=== PATIENT | male | born 1945 | race African-American/Black ===

== ENCOUNTER 2017-02-05 05:04 | Inpatient (IN) | payer MEDICARE, OTHER ==
[2017-01-29 11:01] LABS: BASOPHILS % (AUTO) 1.3 % (0.0-2.0); EOSINOPHILS % (AUTO) 4.1 % (0.0-3.0); LYMPHOCYTES % (AUTO) 26.8 % (20.0-45.0); MEAN CORPUSCULAR HEMOGLOBIN 34.5 PG (27.0-31.0); MEAN CORPUSCULAR HGB CONC 32.3 G/DL (32.0-36.0); MEAN CORPUSCULAR VOLUME 107 FL (80-99); MONOCYTES % (AUTO) 8.5 % (1.0-10.0); NEUTROPHILS % (AUTO) 59.3 % (45.0-75.0); PLATELET COUNT 230 K/UL (150-450); RED BLOOD COUNT 3.24 M/UL (4.70-6.10); RED CELL DISTRIBUTION WIDTH 14.2 % (11.6-14.8); WHITE BLOOD COUNT 4.7 K/UL (4.8-10.8)
[2017-01-29 11:14] LABS: PROTHROMBIN TIME 10.2 SEC (9.30-11.50)
[2017-01-29 11:15] LABS: ALBUMIN/GLOBULIN RATIO 1.1 (1.0-2.7); CALCIUM 10.6 mg/dL (8.6-10.2); CREATININE 4.7 mg/dL (0.7-1.2); POTASSIUM 4.3 mEQ/L (3.4-4.9); TOTAL PROTEIN 8.2 g/dL (6.6-8.7)
--- NOTE | 2017-01-30 08:48 | Diagnostic Imaging Report ---
Indication: COUGH Technique: One view of the chest Comparison: 07/04/2012 Findings: Previously demonstrated dialysis catheter is no longer evident. Lungs and pleural spaces are clear. Heart size is normal. Aorta is tortuous and calcified. Impression: No acute process
--- NOTE | 2017-02-04 10:44 | Pre-Procedure Note/Attestation ---
Pre-Procedure Note/Attestation Complete Prior to Procedure Planned Procedure: left Procedure Narrative: Left total hip arthroplasty Indications for Procedure Pre-Operative Diagnosis: Left hip arthritis Attestation I attest that I discussed the nature of the procedure; its benefits; risks and complications; and alternatives (and the risks and benefits of such alternatives ), prior to the procedure, with the patient (or the patient's legal outside dealer sales representative). I attest that, if there was a reasonable possibility of needing a blood transfusion, the patient (or the patient's legal outside dealer sales representative) was given the [facility] standardized written summary, pursuant to the Carson Kristy Blood Safety Act ([place] Health and Safety Code # 1645, as amended). I attest that I re-evaluated the patient just prior to the surgery and that there has been no change in the patient's H&P, except as documented below: NONE MARV GODINEZ Feb 04, 2017 10:44
[2017-02-05] VITALS (16 sets, daily range): BP systolic 116–191; BP diastolic 60–99
[~2017-02-05] VITALS: Ht 175.3 cm; Wt 57.2 kg
[~2017-02-05 05:04] MED LIST: ACYCLOVIR200 MG/5 M PO; AMLODIPINE BESY10 MG PO; AVAPRO300 MG PO; BACTRIM-DS1 EA PO; BENADRYL25 MG PO; CLONIDINE 0.2M0.2 MG PO; COZAAR100 MG PO; CREON 10 EC CA249 MG PO; DILANTIN100 MG PO; DIOVAN320 MG PO; EPIVIR10 MG/1 ML PO; EPIVIR300 MG PO; FOLIC ACID1 MG PO; ISOSORBIDE DINI40 MG PO; LOPRESSOR HCT1 EACH PO; MYCELEX15 GM PO; NEPHRO-VITE RX1 EACH PO; NORCO 7.5-3251 EACH PO; NORVASC10 MG PO; NORVIR100 M1 PO; NORVIR100 MG PO; PRILOSEC40 MG PO; RANITIDINE HCL150 MG PO; RENAGEL800 MG PO; RENVELA800 MG PO; REYATAZ150 MG PO; SENSIPAR30 MG PO; SENSIPAR60 MG PO; SUSTIVA200 MG PO; VASOTEC20 MG PO; ZERIT PO; ZIAGEN300 MG PO
[2017-02-05] MEDS ORDERED: ceFAZolin 1gm in D5W 55ml IVP ONE (06:00)
[2017-02-05] MEDS ORDERED: oxyCONTIN 20mg tab ORAL ONE (06:00)
[2017-02-05] MEDS ORDERED: celeBREX 200mg Cap **SURGERY PATIENTS ONLY ORAL ONE (06:00)
[2017-02-05] MEDS ORDERED: Bacitracin 50000 Units Vial ONE (06:47)
[2017-02-05] MEDS ORDERED: Duramorph PF 5mg/10ml amp ONE (06:47)
[2017-02-05] MEDS ORDERED: NS Irrig 1000ml ONE (07:00)
[2017-02-05] MEDS ORDERED: Sterile Water Irrig 1000ml IRRIG ONE (07:00)
[2017-02-05] MEDS ORDERED: fentaNYL 100 mcg/2 mL IV ONE (07:00)
[2017-02-05] MEDS ORDERED: Tranexamic Acid 1,000 MG in NS 55 ML IVPB ONE (08:00)
--- NOTE | 2017-02-05 08:24 | Anethesia Preoperative Eval ---
Anesthesia Pre-op PMH/ROS General Date of Evaluation: Feb 05, 2017 Time of Evaluation: 06:50 Anesthesiologist: Kayley ASA Score: ASA 3 Mallampati Score Class I : Soft palate, uvula, fauces, pillars visible Class II: Soft palate, uvula, fauces visible Class III: Soft palate, base of uvula visible Class IV: Only hard plate visible Mallampati Classification: Class II Surgeon: Dudley Diagnosis: R hip DJD Surgical Procedure: R hip arthroplasty Anesthesia History: none Family History: no anesthesia problems Allergies: Coded Allergies: No Known Allergies (Unverified , 03/05/12) Medications: see eMAR Past Medical History Cardiovascular: Reports: HTN, Denies: CAD, MA, arrhythmia, other, valve dz Pulmonary: Denies: COPD, CRISSY, asthma, other Gastrointestinal/Genitourinary: Reports: ESRD - on HD, GERD, Denies: CRI, other Neurologic/Psychiatric: Reports: depression/anxiety, other - chronic pain, Denies: CVA, TIA, dementia Endocrine: Denies: DM, hypothyroidism, other, steroids HEENT: Denies: [place] (L), [place] (R), cataract (L), cataract (R), glaucoma, other Hematology/Immune: Reports: anemia, other - HIV-AIDS, Denies: DVT, bleeding disorder Musculoskeletal/Integumentary: Reports: DJD PMH Narrative: as above PSxH Narrative: Multiple Sx for placement and maintenance of dialysis acces Anesthesia Pre-op Phys. Exam Physician Exam Last Vital Signs Date Time Temp Pulse Resp B/P Pulse Ox O2 Delivery O2 Flow Rate FiO2 02/05/17 06:02 98.0 61 18 168/74 100 Room Air Constitutional: NAD Neurologic: CN 2-12 intact Cardiovascular: RRR, no M/R/G Respiratory: CTA Gastrointestinal: S/NT/ND Airway Exam Mallampati Score: Class II MO: limited Neck: stiff ROM: limited Teeth: missing, broken Dentures: no lower, no upper Anesthesia Pre-op A/P Labs Chemistry Test 02/05/17 05:30 Potassium Level 4.3 mEQ/L (3.4-4.9) Studies Pre-op Studies: EKG - SR Risk Assessment & Plan Assessment: ASA 3 Plan: SAB vs GA Status Change Before Surgery: No Pre-Antibiotics Drug: Ancef 1gr Given Within 1 Hr of Incision: Yes Time Given: 07:55 JOSE GUADALUPE PEÑA M.D. Feb 05, 2017 08:24
[2017-02-05] MEDS ORDERED: Meperidine 25mg/0.5ml Inj (FOR RIGORS ONLY) IV PRN (08:30)
[2017-02-05] MEDS ORDERED: Hydromorphone 0.5mg/0.5ml inj IVP PRN (08:30)
[2017-02-05] MEDS ORDERED: DiphenhydrAMINE 50mg/ml Inj IVP PRN (08:30)
[2017-02-05] MEDS ORDERED: Enoxaparin 30mg Inj SUBQ SCH (09:00)
--- NOTE | 2017-02-05 09:22 | Brief Operative Note ---
Immediate Post Operative Note Operative Note Chief Complaint: rt hip pain Pre-op Diagnosis: rt hip arthritis Procedure: rt [place] Post-op Diagnosis: same as pre-op Findings: consistent w/pre-op dx studies Surgeon: md rose [employer] Dispatcher: radha sanchez Anesthesiologist: md fran Anesthesia: general Specimen: yes Complications: none Condition: stable Estimated Blood Loss: minimal Drains: none Implant(s) used?: Yes - mina and nephCHRIS Jackson Feb 05, 2017 09:22
--- NOTE | 2017-02-05 10:48 | Immediate Post-Op Evaluation ---
Immediate Post-Op Evalulation Immediate Post-Op Evalulation Procedure: R total hip arthroplasty Date of Evaluation: Feb 05, 2017 Time of Evaluation: 09:35 IV Fluids: 1000 Blood Products: none Estimated Blood Loss: 150 Urinary Output: none Blood Pressure Systolic: 116 Blood Pressure Diastolic: 64 Pulse Rate: 61 Respiratory Rate: 20 O2 Sat by Pulse Oximetry: 99 Temperature (Fahrenheit): 97.5 Pain Score (1-10): 1 Nausea: No Vomiting: No Complications none Patient Status: reacts, patent, none Hydration Status: adequate JOSE GUADALUPE PEÑA M.D. Feb 05, 2017 10:48
--- NOTE | 2017-02-05 11:55 | Diagnostic Imaging Report ---
Indication: Intraoperative Technique: One view of the pelvis during surgery Comparison: None Findings: Intraoperative image documents a right hip arthroplasty cup and right femoral broach. There are vascular calcifications Impression: Intraoperative imaging, as described
[2017-02-05] MEDS ORDERED: Norco 5mg/325mg tab ORAL PRN (12:00)
[2017-02-05] MEDS ORDERED: Norco 7.5mg/325mg tab ORAL PRN (12:00)
[2017-02-05] MEDS ORDERED: HYDROmorphone 1mg/ml Carpuject SUBQ PRN (12:00)
--- NOTE | 2017-02-05 12:18 | Diagnostic Imaging Report ---
Indication: PAIN, postoperative Technique: One view of the lower pelvis Comparison: 2 hours earlier Findings: Right hip arthroplasty prosthesis is in place, visualized. Retained air from the surgical exposure is seen in the soft tissues. Impression: Postoperative right hip. No unusual features
--- NOTE | 2017-02-05 12:24 | Consultation ---
Consult Note Assessment/Plan staus: Had Right hip elective surgery- ESRD on HD HIV status HTN Plan: HD in am- Renal diet when awake- Cont HIV meds per ID- BP meds and adjustments Per orders- VANNESSA CRUZ Feb 05, 2017 12:24
[2017-02-05] MEDS: D5 1/2NS 1,000 ML IV SCH (12:30)
[2017-02-05] MEDS ORDERED: cloNIDine 0.2mg Tab ORAL SCH (13:00)
[2017-02-05] MEDS: Docusate 100mg cap ORAL SCH ×2 (13:00→18:53)
[2017-02-05] MEDS ORDERED: D5 1/2NS w/KCl 20mEq 1,000 ML IV SCH (13:00)
[2017-02-05] MEDS: oxyCONTIN 20mg tab ORAL SCH ×2 (13:00→21:23)
[2017-02-05 13:52] LABS: BASOPHILS % (AUTO) 0.7 % (0.0-2.0); EOSINOPHILS % (AUTO) 2.8 % (0.0-3.0); LYMPHOCYTES % (AUTO) 20.2 % (20.0-45.0); MEAN CORPUSCULAR HEMOGLOBIN 33.9 PG (27.0-31.0); MEAN CORPUSCULAR HGB CONC 31.3 G/DL (32.0-36.0); MEAN CORPUSCULAR VOLUME 108 FL (80-99); MEAN PLATELET VOLUME 5.7 FL (6.5-10.1); MONOCYTES % (AUTO) 6.5 % (1.0-10.0); NEUTROPHILS % (AUTO) 69.9 % (45.0-75.0); PLATELET COUNT 176 K/UL (150-450); RED BLOOD COUNT 2.46 M/UL (4.70-6.10); RED CELL DISTRIBUTION WIDTH 14.5 % (11.6-14.8); WHITE BLOOD COUNT 6.4 K/UL (4.8-10.8)
[2017-02-05 14:06] LABS: ALBUMIN/GLOBULIN RATIO 1.2 (1.0-2.7); CALCIUM 9.7 mg/dL (8.6-10.2); CREATININE 6.7 mg/dL (0.7-1.2); GLOMERULAR FILTRATION RATE 9.9 mL/min (>60); PHOSPHORUS 5.5 mg/dL (2.5-4.8); POTASSIUM 4.8 mEQ/L (3.4-4.9); TOTAL PROTEIN 5.9 g/dL (6.6-8.7)
[2017-02-05] MEDS ORDERED: ceFAZolin sod 2 GM in D5W 110 ML IV SCH (16:00)
[2017-02-05] MEDS: ceFAZolin sod 1 GM in D5W 55 ML IV SCH ×2 (16:29→23:41)
--- NOTE | 2017-02-05 19:15 | Operative Note - Dictated ---
DATE OF OPERATION: 02/05/2017 PREOPERATIVE DIAGNOSIS: Right hip end-stage arthritis. POSTOPERATIVE DIAGNOSIS: Right hip end-stage arthritis. PROCEDURE: Right total hip arthroplasty using Chaney and Nephew system, size 54 mm, R3 cup with two dome screws, size 9 mm standard offset Anthology stem, standard neck with 0 length 36 mm cobalt-chrome head, all press-fit SURGEON: Gerardo Jesus M.D. CONSERVATION PLANNER: Michelle Woodward PA-C. ANESTHESIOLOGIST: Tulio Zaldivar M.D. ANESTHESIA: General LMA anesthesia combined with spinal block for postoperative pain management. ESTIMATED BLOOD LOSS: Less than 150 mL. COMPLICATIONS: None. BRIEF HISTORY: The patient is a pleasant 71-year-old gentleman who has had end-stage renal disease and has had severe arthritis of the right hip. He is unable to ambulate because of his hip. After full discussion of the risks and benefits of the surgery complications associated with it including infection, bleeding, neurovascular complication, possibility of fractures, possibility of leg length discrepancy, DVT, PE, need for revision surgery, infection requiring resection arthroplasty, and other complications that may arise, he opted for surgical treatment as described above. OPERATIVE PROCEDURE: The patient was brought to the operating table and was placed supine. General LMA anesthesia was induced and spinal anesthesia was performed for postoperative pain management. Tranexamic acid was given and preoperative antibiotics was given. The patient was placed in left lateral decubitus position. All pressure points were well padded. The right hip was placed up. The patient was stabilized and all pressure points were well padded. The right hip was prepped and draped in the usual sterile fashion. Standard posterior lateral approach to the hip was undertaken. The tensor fascia was opened and gluteal fascia was opened. Charnley retractors were placed in. The short external rotators were released and capsule was T'd. The femoral head was dislocated and a standard femoral neck cut was performed without any complication. The head was extremely arthritic. At this point, anterior acetabular retractors were placed in and retractors were placed around the acetabulum for visualization. The labrum was resected. Acetabulum had significant arthritic changes. At this point, wounds were thoroughly irrigated. Sequential reaming of the acetabulum was performed from [address] up to 54 mm. This provided excellent bleeding surface on the acetabulum for the cup. The reaming was performed approximately 40 degrees of anteversion and 40 degrees of inclination. Once this was completed, a 54 mm R3 hemispheric cup was then applied and was malleted in. There was excellent stability of the cup. Anteversion and inclination was checked to be perfect. Wounds were thoroughly irrigated using copious amount of fluid before and after the arthritic cup placement. At this point, two dome screws were placed for additional fixation. A 20-degree lipped poly was then locked in without any complications. At this point, care was given to the femoral side. The retractors around the acetabulum were removed. The hip was then internally rotated and retractors were placed around the femur. Subsequently, the entry into the femur was lateralized and the camera point was placed in. Sequential broaching was performed from [address] up to size 9 mm broach. This provided excellent axial and rotational stability of the hip. Once this was completed, a standard offset neck and 0 mm length head with 36 mm diameter was then applied and the whole entire construct was reduced. Range of motion was checked at 0 degrees, 30 degrees, 45 degrees, 90 degrees of flexion, and stability was checked in internal and external rotation. Leg lengths were checked with excellent stability, with internal rotation all the way up to 70 degrees with hip in adduction. External rotation was checked and there was no instability. Leg lengths appeared to be equal intraoperatively. The soft tissue tension was excellent. At this point, intraoperative x-rays were obtained and the broach appeared to be perfect size. The leg lengths appeared to be equal and acetabular component was in excellent position. At this point, all wounds were thoroughly irrigated using copious amount of fluid. The broach was removed and canal was irrigated using Simpulse irrigation. At this point, size 9 anthology stem was then placed in with approximately 15 degrees of anteversion and was seated as well. The standard neck was used. At this point, 0 mm neck length, and 36 mm cobalt-chrome head was then applied on the Walters taper and was locked without complication. The locking mechanism was checked and rechecked to be perfect. At this point, the entire mechanism was then reduced after the acetabulum was thoroughly irrigated. Once this was completed, leg length stability and soft tissue tension were checked and appeared to be perfect as described previously. At this point, the tensor fascia was closed using #1 interrupted Vicryl suture. Short external rotators were fixed through drill holes to the femur prior to closing the tensor fascia. The subcutaneous tissue was closed in 2-0 Vicryl suture and the skin was closed in 3-0 Monocryl suture. A sterile dressing was applied and abduction pillow was applied. The patient was taken to the recovery room in stable condition. Gerardo Jesus M.D. DR: CONRAD JOB#: [id number] CC: NAGI
[2017-02-05] MEDS: Sensipar 30mg Tab ORAL SCH (21:20)
[2017-02-05] MEDS: Minoxidil 2.5mg tab ORAL PRN (21:20)
[2017-02-06] VITALS (10 sets, daily range): BP systolic 158–197; BP diastolic 75–102
[2017-02-06] MEDS: Minoxidil 2.5mg tab ORAL PRN ×2 (05:05→22:20)
[2017-02-06 07:05] LABS: BASOPHILS % (AUTO) 0.6 % (0.0-2.0); EOSINOPHILS % (AUTO) 2.1 % (0.0-3.0); LYMPHOCYTES % (AUTO) 15.6 % (20.0-45.0); MEAN CORPUSCULAR HEMOGLOBIN 35.2 PG (27.0-31.0); MEAN CORPUSCULAR HGB CONC 32.7 G/DL (32.0-36.0); MEAN CORPUSCULAR VOLUME 108 FL (80-99); MEAN PLATELET VOLUME 6.1 FL (6.5-10.1); MONOCYTES % (AUTO) 6.7 % (1.0-10.0); PLATELET COUNT 204 K/UL (150-450); RED CELL DISTRIBUTION WIDTH 14.1 % (11.6-14.8); WHITE BLOOD COUNT 6.9 K/UL (4.8-10.8)
[2017-02-06 07:24] LABS: ALBUMIN/GLOBULIN RATIO 1.2 (1.0-2.7); CREATININE 8.3 mg/dL (0.7-1.2); CRP QUANT 2.7 mg/dL (< 0.5); GLOMERULAR FILTRATION RATE 7.8 mL/min (>60); MAGNESIUM 2.4 mg/dL (1.7-2.5); PHOSPHORUS 6.1 mg/dL (2.5-4.8); POTASSIUM 4.4 mEQ/L (3.4-4.9); TOTAL PROTEIN 7.8 g/dL (6.6-8.7); URIC ACID 4.3 mg/dL (3.0-7.5)
[2017-02-06] MEDS: D5 1/2NS 1,000 ML IV SCH (08:20)
[2017-02-06] MEDS: Docusate 100mg cap ORAL SCH ×4 (08:20→17:39)
[2017-02-06] MEDS: oxyCONTIN 20mg tab ORAL SCH ×2 (08:21→11:20)
[2017-02-06] MEDS: Enoxaparin 30mg Inj SUBQ SCH ×2 (08:22→10:52)
--- NOTE | 2017-02-06 08:22 | Orthopedic Progress Note ---
Orthopedic - Progress Note Subjective Symptoms: improved Objective Vital Signs Laboratory Tests Test 02/05/17 13:25 02/06/17 05:00 White Blood Count 6.4 K/UL (4.8-10.8) 6.9 K/UL (4.8-10.8) Red Blood Count 2.46 M/UL (4.70-6.10) L 3.00 M/UL (4.70-6.10) L Hemoglobin 8.3 G/DL (14.2-18.0) L 10.6 G/DL (14.2-18.0) L Hematocrit 26.6 % (42.0-52.0) L 32.4 % (42.0-52.0) L Mean Corpuscular Volume 108 FL (80-99) H 108 FL (80-99) H Mean Corpuscular Hemoglobin 33.9 PG (27.0-31.0) H 35.2 PG (27.0-31.0) H Mean Corpuscular Hemoglobin Concent 31.3 G/DL (32.0-36.0) L 32.7 G/DL (32.0-36.0) Red Cell Distribution Width 14.5 % (11.6-14.8) 14.1 % (11.6-14.8) Platelet Count 176 K/UL (150-450) 204 K/UL (150-450) Mean Platelet Volume 5.7 FL (6.5-10.1) L 6.1 FL (6.5-10.1) L Neutrophils (%) (Auto) 69.9 % (45.0-75.0) 75.0 % (45.0-75.0) Lymphocytes (%) (Auto) 20.2 % (20.0-45.0) 15.6 % (20.0-45.0) L Monocytes (%) (Auto) 6.5 % (1.0-10.0) 6.7 % (1.0-10.0) Eosinophils (%) (Auto) 2.8 % (0.0-3.0) 2.1 % (0.0-3.0) Basophils (%) (Auto) 0.7 % (0.0-2.0) 0.6 % (0.0-2.0) Sodium Level 142 mEQ/L (135-145) 138 mEQ/L (135-145) Potassium Level 4.8 mEQ/L (3.4-4.9) 4.4 mEQ/L (3.4-4.9) Chloride Level 102 mEQ/L (98-107) 94 mEQ/L (98-107) L Carbon Dioxide Level 28 mEQ/L (20-30) 29 mEQ/L (20-30) Anion Gap 12 (5-15) 15 (5-15) Blood Urea Nitrogen 22 mg/dL (7-23) 29 mg/dL (7-23) H Creatinine 6.7 mg/dL (0.7-1.2) H 8.3 mg/dL (0.7-1.2) H Estimat Glomerular Filtration Rate 9.9 mL/min (>60) 7.8 mL/min (>60) Glucose Level 75 mg/dL (74-106) 94 mg/dL (74-106) Calcium Level 9.7 mg/dL (8.6-10.2) 11.0 mg/dL (8.6-10.2) H Phosphorus Level 5.5 mg/dL (2.5-4.8) H 6.1 mg/dL (2.5-4.8) H Total Bilirubin 0.6 mg/dL (0.0-1.2) 0.4 mg/dL (0.0-1.2) Aspartate Amino Transf (AST/SGOT) 21 U/L (5-40) 39 U/L (5-40) Alanine Aminotransferase (ALT/SGPT) 10 U/L (3-41) 12 U/L (3-41) Alkaline Phosphatase 76 U/L (40-129) 108 U/L (40-129) Total Protein 5.9 g/dL (6.6-8.7) L 7.8 g/dL (6.6-8.7) # Albumin 3.3 g/dL (3.5-5.2) L 4.3 g/dL (3.5-5.2) Globulin 2.6 g/dL 3.5 g/dL Albumin/Globulin Ratio 1.2 (1.0-2.7) 1.2 (1.0-2.7) Uric Acid 4.3 mg/dL (3.0-7.5) Magnesium Level 2.4 mg/dL (1.7-2.5) Iron Level 21 ug/dL (59-158) L Total Iron Binding Capacity 181 ug/dL (250-400) L Percent Iron Saturation 12 % (15-50) L Unsaturated Iron Binding 160 ug/dL (112-346) Ferritin 1353 ng/mL (10-230) H C-Reactive Protein, Quantitative 2.7 mg/dL (< 0.5) H Pro-B-Type Natriuretic Peptide 64428 pg/mL (0-125) H Vitamin B12 Level 976 pg/mL (211-946) H Last 24 Hour Vital Signs Date Time Temp Pulse Resp B/P Pulse Ox O2 Delivery O2 Flow Rate FiO2 02/06/17 06:49 185/75 02/06/17 05:05 197/102 02/06/17 04:00 98.2 94 19 196/90 100 Nasal Cannula 2.0 02/06/17 00:21 98.1 91 18 197/102 100 Nasal Cannula 2.0 02/05/17 21:52 100 Nasal Cannula 2.0 02/05/17 21:51 Nasal Cannula 2.0 02/05/17 21:20 191/90 02/05/17 20:14 97.9 80 19 191/90 100 Nasal Cannula 2.0 02/05/17 18:53 133/63 02/05/17 16:16 97.6 50 19 133/63 100 Nasal Cannula 2.0 02/05/17 13:28 97.3 51 19 132/64 100 Nasal Cannula 2.0 02/05/17 12:38 97.3 51 19 132/64 100 Nasal Cannula 2.0 02/05/17 11:40 97.2 52 20 135/64 100 Nasal Cannula 2.0 02/05/17 10:48 61 20 99 02/05/17 10:40 97.2 52 10 130/66 98 Nasal Cannula 2.0 02/05/17 10:35 52 10 132/66 98 Nasal Cannula 2.0 02/05/17 10:30 55 10 127/70 97 Nasal Cannula 2.0 02/05/17 10:20 51 12 136/68 98 Room Air 02/05/17 10:10 55 14 136/68 100 Simple Mask 6.0 02/05/17 10:00 52 10 128/63 100 Simple Mask 6.0 02/05/17 09:50 53 11 126/65 100 Simple Mask 6.0 02/05/17 09:40 53 10 122/60 100 Simple Mask 6.0 02/05/17 09:35 55 10 128/74 100 Simple Mask 6.0 02/05/17 09:30 97.8 53 11 116/99 100 Simple Mask 6.0 I&O Intake and Output 02/05/17 02/06/17 19:00 07:00 Intake Total 1490 ml 690 ml Output Total 150 ml Balance 1340 ml 690 ml Intake Oral 340 ml 240 ml IV Total 1150 ml 450 ml Output Estimated Blood Loss 150 ml Wound: clean, dry, intact Drains: none Neuro Status: normal Vascular Status: normal Additional Comments xray reviewed Assessment Post-op Diagnosis POD 1 Procedure Performed rt [place] Plan Plan: PT, discharge plan - to SNF on saturday CHRIS MORGAN Feb 06, 2017 08:22
[2017-02-06] MEDS ORDERED: Efavirenz 200mg cap ORAL SCH (09:00)
[2017-02-06] MEDS: Lisinopril 10mg tab ORAL SCH ×3 (09:00→17:39)
[2017-02-06] MEDS ORDERED: Iron Sucrose 200 MG in NS 110 ML IV ONE (09:30)
--- NOTE | 2017-02-06 09:36 | Cardiology Report ---
APPROVED REPORT EKG Measurement Heart [id number] Sinus bradycardia with 1st degree AV block Voltage criteria for left ventricular hypertrophy Nonspecific ST and T wave abnormality Abnormal ECG
--- NOTE | 2017-02-06 09:50 | 48 Hour Post Anesthesia Eval ---
Post Anesthesia Evaluation Procedure: R total hip arthroplasty Date of Evaluation: Feb 06, 2017 Airway: patent Nausea: No Vomiting: No Pain Intensity: 3 Hydration Status: adequate Cardiopulmonary Status: at baseline Mental Status/LOC: patient returned to baseline Post-Anesthesia Complications: 0 Follow-up care needed: N/A - further care as per primary team IMELDA COLBY M.D. Feb 06, 2017 09:50
--- NOTE | 2017-02-06 13:00 | Consultation ---
DATE OF CONSULTATION: 02/06/2017 INFECTIOUS DISEASES CONSULTATION CONSULTING PHYSICIAN: Alyson Fuller M.D. REFERRING PHYSICIAN: Raymond Jimenez M.D. REASON FOR CONSULTATION: HIV management. HISTORY OF PRESENTING ILLNESS: This is a 71-year-old gentleman with history of HIV, hypertension, and renal failure, who came in with a right hip pain secondary to right hip arthritis. He has undergone a right hip arthroplasty and then Infectious Diseases consultation has been obtained for HIV management. PAST MEDICAL HISTORY: 1. History of HIV. 2. Hypertension. 3. Renal failure, on dialysis. 4. Right hip arthritis. SOCIAL HISTORY: He does not smoke, drink, or use drugs. FAMILY HISTORY: Noncontributory. REVIEW OF SYSTEMS: Respiratory: No fever, chills, cough, shortness of breath or chest pain. Cardiac: No chest pain. No palpitations. No dizziness. No syncope. Gastrointestinal: He did have nausea and vomiting. No abdominal pain or diarrhea. Musculoskeletal: He denies any pain. MEDICATIONS: As an inpatient, he is on clonidine, Norvasc, folic acid, Lovenox, Restoril, Sensipar, Protonix, docusate, Renvela, minoxidil, Dilaudid, [place], and Tylenol. ALLERGIES: No known drug allergies. PHYSICAL EXAMINATION: VITAL SIGNS: Temperature of 97.8, T-max of 98.2, pulse of 52, respiratory rate of 19, blood pressure 214/75, and O2 saturation of 98%. HEENT: Pupils are equally reactive to light and accommodation. Mouth appears clean without thrush. NECK: Supple. No adenopathy. No JVD. CARDIOVASCULAR: Regular rate and rhythm. No murmurs. LUNGS: Clear to auscultation bilaterally. No crackles. No wheezes. ABDOMEN: Soft and nontender. No organomegaly. EXTREMITIES: No cyanosis, no clubbing, no edema. LABORATORY DATA: White count 6.9, hemoglobin 10.6, hematocrit 32.4, MCV 108, platelet count of 204,000, and neutrophils of 75%. Sodium 138, potassium 4.4, chloride 94, bicarbonate 29, BUN 29, creatinine 8.3, glucose 94, and calcium 11. Total bilirubin 0.4, AST 39, ALT 12, and alkaline phosphatase 108. C-reactive protein 2.7. Beta natriuretic peptide 27,959. Total protein 7.8. Albumin 4.3. Chest x-ray showing no acute process. ASSESSMENT: 1. This is a 71-year-old gentleman with history of human immunodeficiency virus, hypertension, and renal failure, who comes in with a right hip arthritis and he has undergone right hip arthroplasty. 2. Hypertension. 3. Renal failure. PLAN: 1. We will start anti-retroviral. 2. We will follow up the patient clinically. I would like to thank, Dr. Jimenez, for this consultation. Alyson Fuller M.D. DR: ESTRELLA JOB#: [id number] CC: Raymond Jimenez M.D.
[2017-02-06] MEDS: Bactrim SS Tab ORAL SCH (14:57)
--- NOTE | 2017-02-06 15:05 | General Progress Note ---
Assessment/Plan Status: stable Assessment/Plan Had Right hip elective surgery- 02/05/17 Post OP day 2 ESRD on HD HIV status HTN OOC Plan: HD today Renal diet Cont HIV meds per ID- BP meds and adjustments Per orders- DC planning Subjective ROS Limited/Unobtainable: No Constitutional: Reports: other - feels well Allergies: Coded Allergies: No Known Allergies (Unverified , 03/05/12) Objective Last 24 Hour Vital Signs Date Time Temp Pulse Resp B/P Pulse Ox O2 Delivery O2 Flow Rate FiO2 02/06/17 13:49 98 178/93 02/06/17 12:07 177/88 02/06/17 12:06 94 177/88 02/06/17 12:00 98.5 90 19 175/85 98 Room Air 02/06/17 11:07 214/175 02/06/17 10:46 102 214/175 02/06/17 08:00 97.8 86 19 197/95 98 Room Air 02/06/17 06:49 185/75 02/06/17 05:05 197/102 02/06/17 04:00 98.2 94 19 196/90 100 Nasal Cannula 2.0 02/06/17 00:21 98.1 91 18 197/102 100 Nasal Cannula 2.0 02/05/17 21:52 100 Nasal Cannula 2.0 02/05/17 21:51 Nasal Cannula 2.0 02/05/17 21:20 191/90 02/05/17 20:14 97.9 80 19 191/90 100 Nasal Cannula 2.0 02/05/17 18:53 133/63 02/05/17 16:16 97.6 50 19 133/63 100 Nasal Cannula 2.0 Intake and Output 02/05/17 02/06/17 19:00 07:00 Intake Total 1490 ml 690 ml Output Total 150 ml Balance 1340 ml 690 ml Intake Oral 340 ml 240 ml IV Total 1150 ml 450 ml Estimated Blood Loss 150 ml Laboratory Tests 02/06/17 05:00: White Blood Count 6.9, Red Blood Count 3.00L, Hemoglobin 10.6L, Hematocrit 32.4L , Mean Corpuscular Volume 108H, Mean Corpuscular Hemoglobin 35.2H, Mean Corpuscular Hemoglobin Concent 32.7, Red Cell Distribution Width 14.1, Platelet Count 204, Mean Platelet Volume 6.1L, Neutrophils (%) (Auto) 75.0, Lymphocytes ( %) (Auto) 15.6L, Monocytes (%) (Auto) 6.7, Eosinophils (%) (Auto) 2.1, Basophils (%) (Auto) 0.6, Sodium Level 138, Potassium Level 4.4, Chloride Level 94L, Carbon Dioxide Level 29, Anion Gap 15, Blood Urea Nitrogen 29H, Creatinine 8.3H, Estimat Glomerular Filtration Rate 7.8, Glucose Level 94, Uric Acid 4.3, Calcium Level 11.0H, Phosphorus Level 6.1H, Magnesium Level 2.4, Iron Level 21L , Total Iron Binding Capacity 181L, Percent Iron Saturation 12L, Unsaturated Iron Binding 160, Ferritin 1353H, Total Bilirubin 0.4, Aspartate Amino Transf ( AST/SGOT) 39, Alanine Aminotransferase (ALT/SGPT) 12, Alkaline Phosphatase 108, C-Reactive Protein, Quantitative 2.7H, Pro-B-Type Natriuretic Peptide [id number], Total Protein 7.8#, Albumin 4.3, Globulin 3.5, Albumin/Globulin Ratio 1.2, Vitamin B12 Level 976H Height (Feet): 5 Height (Inches): 9.00 Weight (Pounds): 126 General Appearance: no apparent distress Cardiovascular: regular rhythm Respiratory/Chest: lungs clear Abdomen: soft Extremities: other - right hip dressing Edema: no edema noted Arm (L), no edema noted Arm (R), no edema noted Leg (L), no edema noted Leg (R), no edema noted Pedal (L), no edema noted Pedal (R), no edema noted Generalized VANNSESA CRUZ Feb 06, 2017 15:05
[2017-02-06] MEDS: Dolutegravir Sodium 50mg tab ORAL SCH (15:36)
[2017-02-06] MEDS: Ritonavir 100mg tab ORAL SCH (16:12)
[2017-02-06] MEDS: Sensipar 30mg Tab ORAL SCH (21:35)
[2017-02-06] MEDS: Epogen (for ESRD on dialysis) SUBQ SCH (21:36)
[2017-02-07] VITALS (11 sets, daily range): BP systolic 149–182; BP diastolic 62–90
[2017-02-07] MEDS: Minoxidil 2.5mg tab ORAL PRN (02:20)
[2017-02-07 07:17] LABS: ALBUMIN/GLOBULIN RATIO 1.1 (1.0-2.7); CALCIUM 10.4 mg/dL (8.6-10.2); CREATININE 5.7 mg/dL (0.7-1.2); MAGNESIUM 2.4 mg/dL (1.7-2.5); PHOSPHORUS 5.4 mg/dL (2.5-4.8); POTASSIUM 4.7 mEQ/L (3.4-4.9); TOTAL PROTEIN 6.4 g/dL (6.6-8.7)
--- NOTE | 2017-02-07 07:23 | Orthopedic Progress Note ---
Orthopedic - Progress Note Subjective Symptoms: c/o post-op hip pain Objective Vital Signs Last 24 Hour Vital Signs Date Time Temp Pulse Resp B/P Pulse Ox O2 Delivery O2 Flow Rate FiO2 02/07/17 05:34 168/86 02/07/17 04:51 97.5 90 17 169/83 93 Room Air 02/07/17 03:00 82 157/85 02/07/17 02:20 168/87 02/07/17 01:00 82 168/87 02/07/17 00:25 98.1 83 17 182/90 97 Room Air 02/06/17 23:15 84 174/90 02/06/17 22:20 180/90 02/06/17 21:45 189/83 02/06/17 21:03 Nasal Cannula 02/06/17 20:00 97.9 80 18 158/93 98 Room Air 02/06/17 20:00 98 Nasal Cannula 2.0 02/06/17 20:00 Nasal Cannula 2.0 02/06/17 16:45 Room Air 02/06/17 16:00 98.2 87 19 164/85 97 Nasal Cannula 02/06/17 13:49 98 178/93 02/06/17 12:07 177/88 02/06/17 12:06 94 177/88 02/06/17 12:00 98.5 90 19 175/85 98 Room Air 02/06/17 11:07 214/175 02/06/17 10:46 102 214/175 02/06/17 08:00 97.8 86 19 197/95 98 Room Air I&O Intake and Output 02/06/17 02/07/17 19:00 07:00 Intake Total 1050 ml 1100 ml Output Total 400 ml 2350 ml Balance 650 ml -1250 ml Intake Oral 1000 ml 1000 ml IV Total 50 ml 100 ml Output Emesis 400 ml 400 ml Hemodialysis UF 1800 ml Estimated Blood Loss 150 ml # Voids 1 Wound: clean, dry Drains: none Neuro Status: normal Assessment Post-op Diagnosis s/p Right EMILY doing well Plan Plan: PT, pain management, discharge plan Additional Comments Please set up for discharge to rehab on Saturday Monitor pain MARV Kaufman Feb 07, 2017 07:23
[2017-02-07 07:43] LABS: BASOPHILS % (AUTO) 0.8 % (0.0-2.0); EOSINOPHILS % (AUTO) 1.7 % (0.0-3.0); LYMPHOCYTES % (AUTO) 16.3 % (20.0-45.0); MEAN CORPUSCULAR HEMOGLOBIN 35.2 PG (27.0-31.0); MEAN CORPUSCULAR HGB CONC 32.5 G/DL (32.0-36.0); MEAN CORPUSCULAR VOLUME 108 FL (80-99); MEAN PLATELET VOLUME 6.1 FL (6.5-10.1); MONOCYTES % (AUTO) 9.9 % (1.0-10.0); NEUTROPHILS % (AUTO) 71.3 % (45.0-75.0); PLATELET COUNT 161 K/UL (150-450); RED BLOOD COUNT 2.35 M/UL (4.70-6.10); RED CELL DISTRIBUTION WIDTH 14.5 % (11.6-14.8); WHITE BLOOD COUNT 6.2 K/UL (4.8-10.8)
[2017-02-07] MEDS: Dolutegravir Sodium 50mg tab ORAL SCH (09:03)
[2017-02-07] MEDS: Docusate 100mg cap ORAL SCH ×3 (09:03→17:36)
[2017-02-07] MEDS: HydrALAZINE 25mg tab ORAL SCH ×3 (09:03→22:05)
[2017-02-07] MEDS: Bactrim SS Tab ORAL SCH (09:04)
[2017-02-07] MEDS: Lisinopril 10mg tab ORAL SCH ×2 (09:04→17:35)
[2017-02-07] MEDS: Carvedilol 12.5mg tab ORAL SCH ×2 (09:04→21:07)
[2017-02-07] MEDS: Enoxaparin 30mg Inj SUBQ SCH (09:06)
--- NOTE | 2017-02-07 09:21 | General Progress Note ---
Assessment/Plan Status: doing well Status Narrative stable post OP Assessment/Plan Had Right hip elective surgery- 02/05/17 ESRD on HD HIV status HTN OOC Plan: HD in am adjust BP meds- PT Renal diet Cont HIV meds per ID- Per orders- DC planning, Rehab ?? Subjective ROS Limited/Unobtainable: No Constitutional: Reports: other - up in chair- feels well Allergies: Coded Allergies: No Known Allergies (Unverified , 03/05/12) Objective Last 24 Hour Vital Signs Date Time Temp Pulse Resp B/P Pulse Ox O2 Delivery O2 Flow Rate FiO2 02/07/17 09:04 84 179/81 02/07/17 09:04 179/81 02/07/17 09:03 179/81 02/07/17 08:29 99.9 84 21 179/81 91 Room Air 02/07/17 06:00 82 156/88 02/07/17 05:34 168/86 02/07/17 04:51 97.5 90 17 169/83 93 Room Air 02/07/17 03:00 82 157/85 02/07/17 02:20 168/87 02/07/17 01:00 82 168/87 02/07/17 00:25 98.1 83 17 182/90 97 Room Air 02/06/17 23:15 84 174/90 02/06/17 22:20 180/90 02/06/17 21:45 189/83 02/06/17 21:03 Nasal Cannula 02/06/17 20:00 97.9 80 18 158/93 98 Room Air 02/06/17 20:00 98 Nasal Cannula 2.0 02/06/17 20:00 Nasal Cannula 2.0 02/06/17 16:45 Room Air 02/06/17 16:00 98.2 87 19 164/85 97 Nasal Cannula 02/06/17 13:49 98 178/93 02/06/17 12:07 177/88 02/06/17 12:06 94 177/88 02/06/17 12:00 98.5 90 19 175/85 98 Room Air 02/06/17 11:07 214/175 02/06/17 10:46 102 214/175 Intake and Output 02/06/17 02/07/17 19:00 07:00 Intake Total 1050 ml 1100 ml Output Total 400 ml 2350 ml Balance 650 ml -1250 ml Intake Oral 1000 ml 1000 ml IV Total 50 ml 100 ml Output Emesis 400 ml 400 ml Hemodialysis UF 1800 ml Estimated Blood Loss 150 ml # Voids 1 Laboratory Tests 02/07/17 05:10: White Blood Count 6.2, Red Blood Count 2.35L, Hemoglobin 8.3L, Hematocrit 25.5L , Mean Corpuscular Volume 108H, Mean Corpuscular Hemoglobin 35.2H, Mean Corpuscular Hemoglobin Concent 32.5, Red Cell Distribution Width 14.5, Platelet Count 161, Mean Platelet Volume 6.1L, Neutrophils (%) (Auto) 71.3, Lymphocytes ( %) (Auto) 16.3L, Monocytes (%) (Auto) 9.9, Eosinophils (%) (Auto) 1.7, Basophils (%) (Auto) 0.8, Sodium Level 133L, Potassium Level 4.7, Chloride Level 95L, Carbon Dioxide Level 28, Anion Gap 10, Blood Urea Nitrogen 21, Creatinine 5.7H, Estimat Glomerular Filtration Rate 12.0, Glucose Level 92, Calcium Level 10.4H, Phosphorus Level 5.4H, Magnesium Level 2.4, Total Bilirubin 0.3, Aspartate Amino Transf (AST/SGOT) 28, Alanine Aminotransferase ( ALT/SGPT) 5, Alkaline Phosphatase 87, Total Protein 6.4L, Albumin 3.4L, Globulin 3.0, Albumin/Globulin Ratio 1.1 Height (Feet): 5 Height (Inches): 9.00 Weight (Pounds): 126 General Appearance: no apparent distress Cardiovascular: normal rate Respiratory/Chest: lungs clear Abdomen: soft Objective no other change VANNESSA CRUZ Feb 07, 2017 09:21
--- NOTE | 2017-02-07 12:28 | Infectious Diseases Prog Note ---
Assessment/Plan Assessment/Plan A: HIV OA of right knee S/p right total knee placement ESRD on HD P: Continue ART with Stavudine, Tivicay & Ritonavir case was D/W pharmacy Subjective ROS Limited/Unobtainable: No Constitutional: Reports: no symptoms Respiratory: Reports: no symptoms Gastrointestinal/Abdominal: Reports: no symptoms Genitourinary: Reports: no symptoms Musculoskeletal: Reports: other - in surgical site, pain Allergies: Coded Allergies: No Known Allergies (Unverified , 03/05/12) Objective Vital Signs Last 24 Hour Vital Signs Date Time Temp Pulse Resp B/P Pulse Ox O2 Delivery O2 Flow Rate FiO2 02/07/17 10:31 84 179/81 02/07/17 10:20 149/84 02/07/17 09:04 84 179/81 02/07/17 09:04 179/81 02/07/17 09:03 179/81 02/07/17 08:29 99.9 84 21 179/81 91 Room Air 02/07/17 06:00 82 156/88 02/07/17 05:34 168/86 02/07/17 04:51 97.5 90 17 169/83 93 Room Air 02/07/17 03:00 82 157/85 02/07/17 02:20 168/87 02/07/17 01:00 82 168/87 02/07/17 00:25 98.1 83 17 182/90 97 Room Air 02/06/17 23:15 84 174/90 02/06/17 22:20 180/90 02/06/17 21:45 189/83 02/06/17 21:03 Nasal Cannula 02/06/17 20:00 97.9 80 18 158/93 98 Room Air 02/06/17 20:00 98 Nasal Cannula 2.0 02/06/17 20:00 Nasal Cannula 2.0 02/06/17 16:45 Room Air 02/06/17 16:00 98.2 87 19 164/85 97 Nasal Cannula 02/06/17 13:49 98 178/93 Height (Feet): 5 Height (Inches): 9.00 Weight (Pounds): 126 General Appearance: no acute distress, cachetic HEENT: mucous membranes moist Respiratory/Chest: lungs clear Cardiovascular: normal rate Abdomen: soft, non tender Extremities: no edema Neurologic/Psychiatric: alert, oriented x 3, responsive Microbiology Date/Time Source Procedure Growth Status 02/05/17 05:30 Nasal Nares MRSA Culture - Final NO METHICILLIN RESISTANT STAPH AUREUS... Complete Laboratory Tests Test 02/07/17 05:10 White Blood Count 6.2 K/UL (4.8-10.8) Red Blood Count 2.35 M/UL (4.70-6.10) L Hemoglobin 8.3 G/DL (14.2-18.0) L Hematocrit 25.5 % (42.0-52.0) L Mean Corpuscular Volume 108 FL (80-99) H Mean Corpuscular Hemoglobin 35.2 PG (27.0-31.0) H Mean Corpuscular Hemoglobin Concent 32.5 G/DL (32.0-36.0) Red Cell Distribution Width 14.5 % (11.6-14.8) Platelet Count 161 K/UL (150-450) Mean Platelet Volume 6.1 FL (6.5-10.1) L Neutrophils (%) (Auto) 71.3 % (45.0-75.0) Lymphocytes (%) (Auto) 16.3 % (20.0-45.0) L Monocytes (%) (Auto) 9.9 % (1.0-10.0) Eosinophils (%) (Auto) 1.7 % (0.0-3.0) Basophils (%) (Auto) 0.8 % (0.0-2.0) Sodium Level 133 mEQ/L (135-145) L Potassium Level 4.7 mEQ/L (3.4-4.9) Chloride Level 95 mEQ/L (98-107) L Carbon Dioxide Level 28 mEQ/L (20-30) Anion Gap 10 (5-15) Blood Urea Nitrogen 21 mg/dL (7-23) Creatinine 5.7 mg/dL (0.7-1.2) H Estimat Glomerular Filtration Rate 12.0 mL/min (>60) Glucose Level 92 mg/dL (74-106) Calcium Level 10.4 mg/dL (8.6-10.2) H Phosphorus Level 5.4 mg/dL (2.5-4.8) H Magnesium Level 2.4 mg/dL (1.7-2.5) Total Bilirubin 0.3 mg/dL (0.0-1.2) Aspartate Amino Transf (AST/SGOT) 28 U/L (5-40) Alanine Aminotransferase (ALT/SGPT) 5 U/L (3-41) Alkaline Phosphatase 87 U/L (40-129) Total Protein 6.4 g/dL (6.6-8.7) L Albumin 3.4 g/dL (3.5-5.2) L Globulin 3.0 g/dL Albumin/Globulin Ratio 1.1 (1.0-2.7) Current Medications Medications (Trade) Dose Ordered Sig/Rosa Route PRN Reason Start Time Stop Time Status Last Admin Dose Admin Acetaminophen (Tylenol) 650 mg Q4H PRN ORAL Mild Pain (Pain Scale 1-3) 02/05/17 12:00 03/07/17 11:59 Acetaminophen/ Hydrocodone Bitart ([place] 7.5/325) 1 ea Q4H PRN ORAL Moderate Pain (Pain Scale 4-6) 02/05/17 12:00 02/12/17 11:59 Carvedilol (Coreg) 12.5 mg EVERY 12 HOURS ORAL 02/07/17 09:00 03/09/17 08:59 02/07/17 09:04 Cinacalcet (Sensipar) 90 mg QHS ORAL 02/05/17 21:00 03/07/17 20:59 02/06/17 21:35 Clonidine HCl (Catapres) 0.2 mg Q8HR ORAL 02/06/17 14:00 03/08/17 13:59 02/07/17 05:34 Docusate Sodium (Colace) 100 mg THREE TIMES A DAY ORAL 02/05/17 13:00 03/07/17 12:59 02/07/17 09:03 Dolutegravir Sodium (Tivicay) 50 mg DAILY ORAL 02/06/17 14:30 03/08/17 14:29 02/07/17 09:03 Enoxaparin Sodium (Lovenox) 30 mg DAILY SUBQ 02/06/17 09:00 03/08/17 08:59 02/07/17 09:06 Epoetin Kian (Procrit (for ESRD on dialysis)) 10,000 units SAT-SAT-SAT SUBQ 02/06/17 21:00 03/08/17 20:59 02/06/17 21:36 Folic Acid (Folate) 1 mg DAILY ORAL 02/06/17 09:00 03/08/17 08:59 02/07/17 09:03 Hydralazine HCl (Apresoline) 25 mg Q8HR ORAL 02/07/17 09:15 03/09/17 09:14 02/07/17 09:03 Hydromorphone HCl (Dilaudid) 1 mg Q4H PRN SUBQ Moderate Pain (Pain Scale 4-6) 02/05/17 12:00 02/12/17 11:59 Lisinopril (Zestril) 20 mg BID ORAL 02/06/17 09:00 03/08/17 08:59 02/07/17 09:04 Minoxidil (Loniten) 2.5 mg Q4H PRN ORAL HTN, BP over 160 syst 02/05/17 12:15 03/07/17 12:14 02/07/17 02:20 Nifedipine (Procardia XL) 60 mg Q12HR ORAL 02/07/17 09:00 03/09/17 08:59 02/07/17 10:31 Pantoprazole (Protonix) 40 mg EVERY 12 HOURS ORAL 02/05/17 21:00 03/07/17 20:59 02/07/17 09:03 Polyethylene Glycol (Miralax) 17 gm BEDTIME ORAL 02/07/17 21:00 03/09/17 20:59 Ritonavir (Norvir) 100 mg Q24HRS ORAL 02/06/17 14:30 03/08/17 14:29 02/06/17 16:12 Sevelamer Carbonate (Renvela) 1,600 mg THREE TIMES A DAY ORAL 02/05/17 13:00 03/07/17 12:59 02/07/17 09:03 Stavudine (Zerit) 20 mg Q24HRS ORAL 02/06/17 12:15 03/08/17 12:14 UNV Trimethoprim/ Sulfamethoxazole (Bactrim Single Strength) 1 ea DAILY ORAL 02/06/17 12:15 02/13/17 12:14 02/07/17 09:04 ANU MONACO Feb 07, 2017 12:28
[2017-02-07] MEDS: Ritonavir 100mg tab ORAL SCH (14:50)
[2017-02-07] MEDS: Sensipar 30mg Tab ORAL SCH (21:06)
[2017-02-07] MEDS: Miralax 17gm pkt ORAL SCH (21:07)
[2017-02-07] MEDS: STAVUDINE ORAL SCH (22:05)
[2017-02-08] VITALS (8 sets, daily range): BP systolic 127–163; BP diastolic 63–87
[2017-02-08] MEDS: HydrALAZINE 25mg tab ORAL SCH ×3 (06:00→22:00)
--- NOTE | 2017-02-08 08:15 | Orthopedic Progress Note ---
Orthopedic - Progress Note Subjective Symptoms: improved Objective Vital Signs Last 24 Hour Vital Signs Date Time Temp Pulse Resp B/P Pulse Ox O2 Delivery O2 Flow Rate FiO2 02/08/17 06:00 121/67 02/08/17 06:00 122/67 02/08/17 04:00 99.0 71 20 127/63 95 Room Air 02/08/17 00:28 99.7 78 20 158/80 95 Room Air 02/07/17 22:05 152/66 02/07/17 22:05 152/66 02/07/17 21:55 155/62 02/07/17 21:07 78 152/69 02/07/17 20:51 100.1 78 20 152/69 97 Room Air 02/07/17 17:35 77 159/73 02/07/17 17:35 159/73 02/07/17 16:00 98.2 77 21 159/73 94 Room Air 02/07/17 13:46 150/74 02/07/17 13:45 150/74 02/07/17 12:00 99.0 73 22 150/74 95 Room Air 02/07/17 10:31 84 179/81 02/07/17 10:20 149/84 02/07/17 09:04 84 179/81 02/07/17 09:04 179/81 02/07/17 09:03 179/81 02/07/17 08:29 99.9 84 21 179/81 91 Room Air Wound: clean, dry, intact Drains: none Neuro Status: normal Vascular Status: normal Assessment Post-op Diagnosis POD 3 Procedure Performed rt [place] Plan Plan: discharge plan - d/c today to SNF rehab. f/u Dr. Jesus 2 weeks CHRIS MORGAN Feb 08, 2017 08:15
[2017-02-08] MEDS: Bactrim SS Tab ORAL SCH ×2 (08:47→14:01)
[2017-02-08] MEDS: Docusate 100mg cap ORAL SCH ×3 (08:49→16:57)
[2017-02-08] MEDS: Dolutegravir Sodium 50mg tab ORAL SCH (08:50)
[2017-02-08] MEDS: Enoxaparin 30mg Inj SUBQ SCH (08:55)
[2017-02-08] MEDS: Carvedilol 12.5mg tab ORAL SCH ×2 (08:57→20:55)
[2017-02-08] MEDS: Lisinopril 10mg tab ORAL SCH ×2 (08:58→16:58)
[2017-02-08 09:27] LABS: MEAN CORPUSCULAR HEMOGLOBIN 35.3 PG (27.0-31.0); MEAN CORPUSCULAR HGB CONC 32.9 G/DL (32.0-36.0); MEAN CORPUSCULAR VOLUME 107 FL (80-99); MEAN PLATELET VOLUME 6.1 FL (6.5-10.1); PLATELET COUNT 165 K/UL (150-450); RED BLOOD COUNT 2.17 M/UL (4.70-6.10); RED CELL DISTRIBUTION WIDTH 13.7 % (11.6-14.8); WHITE BLOOD COUNT 5.8 K/UL (4.8-10.8)
--- NOTE | 2017-02-08 10:27 | Infectious Diseases Prog Note ---
Assessment/Plan Assessment/Plan antibiotics : ARV A 1. HIV 2. renal failure 3. right hip arthritis s/p EMILY P 1. continue ARV 2. d/c planned Subjective Constitutional: Denies: chills, fever Respiratory: Denies: dry cough, shortness of breath Gastrointestinal/Abdominal: Reports: vomiting - decreased Musculoskeletal: Reports: pain Allergies: Coded Allergies: No Known Allergies (Unverified , 03/05/12) Objective Vital Signs Last 24 Hour Vital Signs Date Time Temp Pulse Resp B/P Pulse Ox O2 Delivery O2 Flow Rate FiO2 02/08/17 08:58 127/87 02/08/17 08:57 75 127/87 02/08/17 08:57 75 127/87 02/08/17 08:00 98.1 75 20 127/87 94 Room Air 02/08/17 06:00 121/67 02/08/17 06:00 122/67 02/08/17 04:00 99.0 71 20 127/63 95 Room Air 02/08/17 00:28 99.7 78 20 158/80 95 Room Air 02/07/17 22:05 152/66 02/07/17 22:05 152/66 02/07/17 21:55 155/62 02/07/17 21:07 78 152/69 02/07/17 20:51 100.1 78 20 152/69 97 Room Air 02/07/17 17:35 77 159/73 02/07/17 17:35 159/73 02/07/17 16:00 98.2 77 21 159/73 94 Room Air 02/07/17 13:46 150/74 02/07/17 13:45 150/74 02/07/17 12:00 99.0 73 22 150/74 95 Room Air 02/07/17 10:31 84 179/81 Height (Feet): 5 Height (Inches): 9.00 Weight (Pounds): 126 Respiratory/Chest: lungs clear Cardiovascular: normal rate, regular rhythm, no gallop/murmur Abdomen: soft, non tender Extremities: no edema, other - right hip in dressings Laboratory Tests Test 02/08/17 08:40 White Blood Count 5.8 K/UL (4.8-10.8) Red Blood Count 2.17 M/UL (4.70-6.10) L Hemoglobin 7.7 G/DL (14.2-18.0) L Hematocrit 23.3 % (42.0-52.0) L Mean Corpuscular Volume 107 FL (80-99) H Mean Corpuscular Hemoglobin 35.3 PG (27.0-31.0) H Mean Corpuscular Hemoglobin Concent 32.9 G/DL (32.0-36.0) Red Cell Distribution Width 13.7 % (11.6-14.8) Platelet Count 165 K/UL (150-450) Mean Platelet Volume 6.1 FL (6.5-10.1) L Neutrophils (%) (Auto) % (45.0-75.0) Lymphocytes (%) (Auto) % (20.0-45.0) Monocytes (%) (Auto) % (1.0-10.0) Eosinophils (%) (Auto) % (0.0-3.0) Basophils (%) (Auto) % (0.0-2.0) Neutrophils % (Manual) Pending Lymphocytes % (Manual) Pending Platelet Estimate Pending Platelet Morphology Pending LAMBERT SANTO Feb 08, 2017 10:27
[2017-02-08 10:40] LABS: BAND NEUTROPHILS % (MANUAL) 0 % (0-8); BASOPHILS % (MANUAL) 0 % (0-2); EOSINOPHILS % (MANUAL) 2 % (0-3); LYMPHOCYTES % (MANUAL) 16 % (20-45); NEUTROPHILS % (MANUAL) 77 % (45-75); PLATELET ESTIMATE ADEQUATE; PLATELET MORPHOLOGY NORMAL; TOTAL CELLS COUNTED 100
[2017-02-08 10:41] LABS: ANISOCYTOSIS 1+; MACROCYTES 1+; MICROCYTES 1+
[2017-02-08 10:42] LABS: ACANTHOCYTES 1+; HYPOCHROMASIA 1+; OVALOCYTES 1+; SCHISTOCYTES 1+
[2017-02-08] MEDS: Ritonavir 100mg tab ORAL SCH (13:58)
--- NOTE | 2017-02-08 14:39 | General Progress Note ---
Assessment/Plan Status: stable Assessment/Plan Had Right hip elective surgery- 02/05/17 ESRD on HD HIV status HTN OOC worsenning anemia Plan: HD in am again- transfuse- today adjust BP meds- PT Renal diet Cont HIV meds per ID- Per orders- DC planning, Rehab ?? in am Subjective ROS Limited/Unobtainable: No Allergies: Coded Allergies: No Known Allergies (Unverified , 03/05/12) Objective Last 24 Hour Vital Signs Date Time Temp Pulse Resp B/P Pulse Ox O2 Delivery O2 Flow Rate FiO2 02/08/17 14:02 136/64 02/08/17 14:01 136/64 02/08/17 12:35 98.5 70 20 128/69 95 Room Air 02/08/17 10:58 98.2 70 20 128/69 95 Room Air 02/08/17 09:00 Room Air 2.0 02/08/17 08:58 127/87 02/08/17 08:57 75 127/87 02/08/17 08:57 75 127/87 02/08/17 08:00 98.1 75 20 127/87 94 Room Air 02/08/17 06:00 121/67 02/08/17 06:00 122/67 02/08/17 04:00 99.0 71 20 127/63 95 Room Air 02/08/17 00:28 99.7 78 20 158/80 95 Room Air 02/07/17 22:05 152/66 02/07/17 22:05 152/66 02/07/17 21:55 155/62 02/07/17 21:07 78 152/69 02/07/17 20:51 100.1 78 20 152/69 97 Room Air 02/07/17 17:35 77 159/73 02/07/17 17:35 159/73 02/07/17 16:00 98.2 77 21 159/73 94 Room Air Laboratory Tests 02/08/17 08:40: White Blood Count 5.8, Red Blood Count 2.17L, Hemoglobin 7.7L, Hematocrit 23.3L , Mean Corpuscular Volume 107H, Mean Corpuscular Hemoglobin 35.3H, Mean Corpuscular Hemoglobin Concent 32.9, Red Cell Distribution Width 13.7, Platelet Count 165, Mean Platelet Volume 6.1L, Neutrophils (%) (Auto) , Lymphocytes (%) ( Auto) , Monocytes (%) (Auto) , Eosinophils (%) (Auto) , Basophils (%) (Auto) , Differential Total Cells Counted 100, Neutrophils % (Manual) 77H, Lymphocytes % (Manual) 16L, Monocytes % (Manual) 5, Eosinophils % (Manual) 2, Basophils % ( Manual) 0, Band Neutrophils 0, Platelet Estimate Adequate, Platelet Morphology Normal, Hypochromasia 1+, Anisocytosis 1+, Microcytosis 1+, Macrocytosis 1+, Ovalocytes 1+, Acanthocytes 1+, Schistocytes 1+ Height (Feet): 5 Height (Inches): 9.00 Weight (Pounds): 126 General Appearance: no apparent distress Cardiovascular: normal rate Respiratory/Chest: lungs clear Objective no other change VANNESSA CRUZ Feb 08, 2017 14:39
[2017-02-08] MEDS: Miralax 17gm pkt ORAL SCH (20:54)
[2017-02-08] MEDS: Epogen (for ESRD on dialysis) SUBQ SCH (20:58)
[2017-02-08] MEDS: Sensipar 30mg Tab ORAL SCH (20:58)
[2017-02-08] MEDS: STAVUDINE ORAL SCH (22:00)
--- NOTE | 2017-02-08 23:45 | Discharge Summary 2 SIG ---
DATE OF ADMISSION: 02/05/2017 DATE OF DISCHARGE: 02/08/2017 HOSPITAL COURSE: The patient is a pleasant 71-year-old gentleman, who was admitted on 02/05/2017 following a right total hip arthroplasty. He was followed along by Dr. Jimenez, and kept his usual hemodialysis schedule. On 02/08/2017, the patient was deemed stable for discharge to rehabilitation center. The patient has been working with physical therapy and can continue to be weightbearing as tolerated. He is to continue with abduction pillow while in bed and continue Lovenox for full 14 days. We will follow up with the patient in two weeks' time for outpatient management. Gerardo Jesus M.D. I have been assigned to dictate discharge summary on this account and I was not involved in the patient's management. Santhosh Woodson DR: FRENCH JOB#: [id number] CC:
[2017-02-09 04:00] VITALS: BP 155/65
[2017-02-09] MEDS: HydrALAZINE 25mg tab ORAL SCH ×2 (06:00→13:59)
[2017-02-09 07:59] LABS: BASOPHILS % (AUTO) 0.8 % (0.0-2.0); EOSINOPHILS % (AUTO) 2.3 % (0.0-3.0); LYMPHOCYTES % (AUTO) 16.2 % (20.0-45.0); MEAN CORPUSCULAR HEMOGLOBIN 34.4 PG (27.0-31.0); MEAN CORPUSCULAR HGB CONC 33.9 G/DL (32.0-36.0); MEAN CORPUSCULAR VOLUME 102 FL (80-99); MEAN PLATELET VOLUME 6.5 FL (6.5-10.1); MONOCYTES % (AUTO) 9.2 % (1.0-10.0); NEUTROPHILS % (AUTO) 71.5 % (45.0-75.0); PLATELET COUNT 175 K/UL (150-450); RED BLOOD COUNT 2.78 M/UL (4.70-6.10); RED CELL DISTRIBUTION WIDTH 16.1 % (11.6-14.8); WHITE BLOOD COUNT 6.7 K/UL (4.8-10.8)
[2017-02-09 08:00] VITALS: BP 154/73
[2017-02-09] MEDS: Bactrim SS Tab ORAL SCH (08:40)
[2017-02-09] MEDS: Docusate 100mg cap ORAL SCH ×2 (08:40→13:57)
[2017-02-09] MEDS: Dolutegravir Sodium 50mg tab ORAL SCH (08:40)
[2017-02-09] MEDS: Enoxaparin 30mg Inj SUBQ SCH (08:42)
[2017-02-09 08:48] LABS: CALCIUM 10.7 mg/dL (8.6-10.2); CREATININE 6.2 mg/dL (0.7-1.2); CRP QUANT 16.7 mg/dL (< 0.5); GLOMERULAR FILTRATION RATE 10.9 mL/min (>60); PHOSPHORUS 3.9 mg/dL (2.5-4.8); POTASSIUM 4.1 mEQ/L (3.4-4.9); TOTAL PROTEIN 6.8 g/dL (6.6-8.7)
[2017-02-09] MEDS ORDERED: Tubing IV Blood Pump IV ONE (09:12)
[2017-02-09] MEDS ORDERED: NS 275ml ONE (09:12)
[2017-02-09] MEDS: Lisinopril 10mg tab ORAL SCH (09:15)
[2017-02-09] MEDS: Carvedilol 12.5mg tab ORAL SCH (09:16)
--- NOTE | 2017-02-09 09:36 | Orthopedic Progress Note ---
Orthopedic - Progress Note Objective Vital Signs Laboratory Tests Test 02/09/17 07:10 White Blood Count 6.7 K/UL (4.8-10.8) Red Blood Count 2.78 M/UL (4.70-6.10) L Hemoglobin 9.6 G/DL (14.2-18.0) L Hematocrit 28.2 % (42.0-52.0) L Mean Corpuscular Volume 102 FL (80-99) H Mean Corpuscular Hemoglobin 34.4 PG (27.0-31.0) H Mean Corpuscular Hemoglobin Concent 33.9 G/DL (32.0-36.0) Red Cell Distribution Width 16.1 % (11.6-14.8) H Platelet Count 175 K/UL (150-450) Mean Platelet Volume 6.5 FL (6.5-10.1) Neutrophils (%) (Auto) 71.5 % (45.0-75.0) Lymphocytes (%) (Auto) 16.2 % (20.0-45.0) L Monocytes (%) (Auto) 9.2 % (1.0-10.0) Eosinophils (%) (Auto) 2.3 % (0.0-3.0) Basophils (%) (Auto) 0.8 % (0.0-2.0) Sodium Level 136 mEQ/L (135-145) Potassium Level 4.1 mEQ/L (3.4-4.9) Chloride Level 98 mEQ/L (98-107) Carbon Dioxide Level 25 mEQ/L (20-30) Anion Gap 13 (5-15) Blood Urea Nitrogen 24 mg/dL (7-23) H Creatinine 6.2 mg/dL (0.7-1.2) H Estimat Glomerular Filtration Rate 10.9 mL/min (>60) Glucose Level 83 mg/dL (74-106) Calcium Level 10.7 mg/dL (8.6-10.2) H Phosphorus Level 3.9 mg/dL (2.5-4.8) Total Bilirubin 0.5 mg/dL (0.0-1.2) Aspartate Amino Transf (AST/SGOT) 32 U/L (5-40) Alanine Aminotransferase (ALT/SGPT) 5 U/L (3-41) Alkaline Phosphatase 78 U/L (40-129) C-Reactive Protein, Quantitative 16.7 mg/dL (< 0.5) H Pro-B-Type Natriuretic Peptide 12324 pg/mL (0-125) H Total Protein 6.8 g/dL (6.6-8.7) Albumin 3.4 g/dL (3.5-5.2) L Globulin 3.4 g/dL Albumin/Globulin Ratio 1.0 (1.0-2.7) Last 24 Hour Vital Signs Date Time Temp Pulse Resp B/P Pulse Ox O2 Delivery O2 Flow Rate FiO2 02/09/17 09:16 70 154/73 02/09/17 09:15 70 154/73 02/09/17 09:15 154/73 02/09/17 08:00 98.3 70 18 154/73 98 Room Air 02/09/17 06:00 155/65 02/09/17 06:00 155/65 02/09/17 04:00 98.4 76 18 155/65 96 Room Air 02/08/17 22:00 159/66 02/08/17 22:00 159/66 02/08/17 21:50 159/66 02/08/17 20:56 83 163/72 02/08/17 20:55 83 163/72 02/08/17 20:10 98.8 83 18 163/72 97 Room Air 02/08/17 16:58 153/71 02/08/17 16:00 98.9 83 20 142/76 95 Room Air 02/08/17 15:01 Room Air 2.0 02/08/17 14:02 136/64 02/08/17 14:01 136/64 02/08/17 12:35 98.5 70 20 128/69 95 Room Air 02/08/17 10:58 98.2 70 20 128/69 95 Room Air I&O Intake and Output 02/08/17 02/09/17 19:00 07:00 Intake Total 660 ml Output Total 1000 ml Balance -340 ml Intake Oral 660 ml Hemodialysis UF 1000 ml Assessment Post-op Diagnosis POD 4 Procedure Performed rt [place] Plan Additional Comments Pt cleared per ortho for d/c yesterday. needed blood tx and now h&h improved. waiting on case mgt for d/c today CHRIS MORGAN Feb 09, 2017 09:36
--- NOTE | 2017-02-09 10:46 | General Progress Note ---
Assessment/Plan Status: stable Status Narrative transfused- Assessment/Plan Had Right hip elective surgery- 02/05/17 ESRD on HD HIV status HTN OOC worsening anemia Plan: HD today transfused 02/08 adjust BP meds- PT Renal diet Cont HIV meds per ID- Per orders- DC planning, Rehab ?? in am Subjective ROS Limited/Unobtainable: No Allergies: Coded Allergies: No Known Allergies (Unverified , 03/05/12) Objective Last 24 Hour Vital Signs Date Time Temp Pulse Resp B/P Pulse Ox O2 Delivery O2 Flow Rate FiO2 02/09/17 09:16 70 154/73 02/09/17 09:15 70 154/73 02/09/17 09:15 154/73 02/09/17 08:00 98.3 70 18 154/73 98 Room Air 02/09/17 06:00 155/65 02/09/17 06:00 155/65 02/09/17 04:00 98.4 76 18 155/65 96 Room Air 02/08/17 22:00 159/66 02/08/17 22:00 159/66 02/08/17 21:50 159/66 02/08/17 20:56 83 163/72 02/08/17 20:55 83 163/72 02/08/17 20:10 98.8 83 18 163/72 97 Room Air 02/08/17 16:58 153/71 02/08/17 16:00 98.9 83 20 142/76 95 Room Air 02/08/17 15:01 Room Air 2.0 02/08/17 14:02 136/64 02/08/17 14:01 136/64 02/08/17 12:35 98.5 70 20 128/69 95 Room Air 02/08/17 10:58 98.2 70 20 128/69 95 Room Air Intake and Output 02/08/17 02/09/17 19:00 07:00 Intake Total 660 ml Output Total 1000 ml Balance -340 ml Intake Oral 660 ml Hemodialysis UF 1000 ml Laboratory Tests 02/09/17 07:10: White Blood Count 6.7, Red Blood Count 2.78L, Hemoglobin 9.6L, Hematocrit 28.2L , Mean Corpuscular Volume 102H, Mean Corpuscular Hemoglobin 34.4H, Mean Corpuscular Hemoglobin Concent 33.9, Red Cell Distribution Width 16.1H, Platelet Count 175, Mean Platelet Volume 6.5, Neutrophils (%) (Auto) 71.5, Lymphocytes (%) (Auto) 16.2L, Monocytes (%) (Auto) 9.2, Eosinophils (%) (Auto) 2.3, Basophils (%) (Auto) 0.8, Sodium Level 136, Potassium Level 4.1, Chloride Level 98, Carbon Dioxide Level 25, Anion Gap 13, Blood Urea Nitrogen 24H, Creatinine 6.2H, Estimat Glomerular Filtration Rate 10.9, Glucose Level 83, Calcium Level 10.7H, Phosphorus Level 3.9, Total Bilirubin 0.5, Aspartate Amino Transf (AST/SGOT) 32, Alanine Aminotransferase (ALT/SGPT) 5, Alkaline Phosphatase 78, C-Reactive Protein, Quantitative 16.7H, Pro-B-Type Natriuretic Peptide 40627G, Total Protein 6.8, Albumin 3.4L, Globulin 3.4, Albumin/Globulin Ratio 1.0 Height (Feet): 5 Height (Inches): 9.00 Weight (Pounds): 126 General Appearance: no apparent distress Cardiovascular: normal rate Respiratory/Chest: decreased breath sounds Abdomen: soft Objective no other change VANNESSA CRUZ Feb 09, 2017 10:46
--- NOTE | 2017-02-09 11:10 | Infectious Diseases Prog Note ---
Assessment/Plan Assessment/Plan antibiotics : ARV A 1. HIV 2. renal failure 3. right hip arthritis s/p EMILY P 1. continue ARV 2. d/c planned Subjective ROS Limited/Unobtainable: Yes Allergies: Coded Allergies: No Known Allergies (Unverified , 03/05/12) Objective Vital Signs Last 24 Hour Vital Signs Date Time Temp Pulse Resp B/P Pulse Ox O2 Delivery O2 Flow Rate FiO2 02/09/17 09:16 70 154/73 02/09/17 09:15 70 154/73 02/09/17 09:15 154/73 02/09/17 08:00 98.3 70 18 154/73 98 Room Air 02/09/17 06:00 155/65 02/09/17 06:00 155/65 02/09/17 04:00 98.4 76 18 155/65 96 Room Air 02/08/17 22:00 159/66 02/08/17 22:00 159/66 02/08/17 21:50 159/66 02/08/17 20:56 83 163/72 02/08/17 20:55 83 163/72 02/08/17 20:10 98.8 83 18 163/72 97 Room Air 02/08/17 16:58 153/71 02/08/17 16:00 98.9 83 20 142/76 95 Room Air 02/08/17 15:01 Room Air 2.0 02/08/17 14:02 136/64 02/08/17 14:01 136/64 02/08/17 12:35 98.5 70 20 128/69 95 Room Air Height (Feet): 5 Height (Inches): 9.00 Weight (Pounds): 126 Respiratory/Chest: lungs clear Cardiovascular: normal rate, regular rhythm, no gallop/murmur Abdomen: soft, non tender Extremities: no edema, other - right hip in dressings Laboratory Tests Test 02/09/17 07:10 White Blood Count 6.7 K/UL (4.8-10.8) Red Blood Count 2.78 M/UL (4.70-6.10) L Hemoglobin 9.6 G/DL (14.2-18.0) L Hematocrit 28.2 % (42.0-52.0) L Mean Corpuscular Volume 102 FL (80-99) H Mean Corpuscular Hemoglobin 34.4 PG (27.0-31.0) H Mean Corpuscular Hemoglobin Concent 33.9 G/DL (32.0-36.0) Red Cell Distribution Width 16.1 % (11.6-14.8) H Platelet Count 175 K/UL (150-450) Mean Platelet Volume 6.5 FL (6.5-10.1) Neutrophils (%) (Auto) 71.5 % (45.0-75.0) Lymphocytes (%) (Auto) 16.2 % (20.0-45.0) L Monocytes (%) (Auto) 9.2 % (1.0-10.0) Eosinophils (%) (Auto) 2.3 % (0.0-3.0) Basophils (%) (Auto) 0.8 % (0.0-2.0) Sodium Level 136 mEQ/L (135-145) Potassium Level 4.1 mEQ/L (3.4-4.9) Chloride Level 98 mEQ/L (98-107) Carbon Dioxide Level 25 mEQ/L (20-30) Anion Gap 13 (5-15) Blood Urea Nitrogen 24 mg/dL (7-23) H Creatinine 6.2 mg/dL (0.7-1.2) H Estimat Glomerular Filtration Rate 10.9 mL/min (>60) Glucose Level 83 mg/dL (74-106) Calcium Level 10.7 mg/dL (8.6-10.2) H Phosphorus Level 3.9 mg/dL (2.5-4.8) Total Bilirubin 0.5 mg/dL (0.0-1.2) Aspartate Amino Transf (AST/SGOT) 32 U/L (5-40) Alanine Aminotransferase (ALT/SGPT) 5 U/L (3-41) Alkaline Phosphatase 78 U/L (40-129) C-Reactive Protein, Quantitative 16.7 mg/dL (< 0.5) H Pro-B-Type Natriuretic Peptide 50095 pg/mL (0-125) H Total Protein 6.8 g/dL (6.6-8.7) Albumin 3.4 g/dL (3.5-5.2) L Globulin 3.4 g/dL Albumin/Globulin Ratio 1.0 (1.0-2.7) LAMBERT SANTO Feb 09, 2017 11:10
[2017-02-09 11:24] VITALS: BP 145/63
[2017-02-09] MEDS: Ritonavir 100mg tab ORAL SCH (13:57)
[2017-02-09] MEDS ORDERED: COREG12.5 MG ORAL (14:34)
[2017-02-09] MEDS ORDERED: PROTONIX40 MG ORAL (14:34)
[2017-02-09] MEDS ORDERED: LISINOPRIL10 MG ORAL (14:34)
[2017-02-09] MEDS ORDERED: BACTRIM SINGLE S1 EA ORAL (14:34)
[2017-02-09] MEDS ORDERED: HYDRALAZINE HCL25 M1 ORAL (14:34)
[2017-02-09] MEDS ORDERED: RENVELA800 MG ORAL (14:34)
[2017-02-09] MEDS ORDERED: ZERIT ORAL (14:34)
[2017-02-09] MEDS ORDERED: LOVENOX10 MG SUBQ (14:34)
[2017-02-09] MEDS ORDERED: TIVICAY50 MG ORAL (14:34)
[2017-02-09] MEDS ORDERED: ACETAMINOPHEN325 M1 ORAL (14:34)
[2017-02-09] MEDS ORDERED: NORVIR100 MG ORAL (14:34)
[2017-02-09] MEDS ORDERED: CLONIDINE0.1 MG ORAL (14:34)
[2017-02-09] MEDS ORDERED: PROCARDIA XL30 MG ORAL (14:34)
[2017-02-09] MEDS ORDERED: MIRALAX17 G2 ORAL (14:34)
[2017-02-09] MEDS ORDERED: LONITEN2.5 MG ORAL (14:34)
[2017-02-09] MEDS ORDERED: SENSIPAR30 MG ORAL (14:34)
[2017-02-09] MEDS ORDERED: COLACE100 MG ORAL (14:34)
[2017-02-09] MEDS ORDERED: HYDROCODON-ACE1 EA16 ORAL (14:34)
--- NOTE | 2017-02-09 14:36 | Discharge Instructions ---
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 VANNESSA CRUZ Feb 09, 2017 14:36
--- NOTE | 2017-02-09 14:38 | General Progress Note ---
Assessment/Plan Assessment/Plan Due DC after HD today- I was assured that patient has his transportation to dialysis arranged and [facility]CF can get all his HIV meds Had Right hip elective surgery- 02/05/17 ESRD on HD HIV status HTN OOC worsening anemia Plan: HD today transfused 02/08 adjust BP meds- PT Renal diet Cont HIV meds per ID- Per orders- DC planning, Rehab ?? in am Subjective Allergies: Coded Allergies: No Known Allergies (Unverified , 03/05/12) Objective Last 24 Hour Vital Signs Date Time Temp Pulse Resp B/P Pulse Ox O2 Delivery O2 Flow Rate FiO2 02/09/17 14:00 130/70 02/09/17 13:59 130/70 02/09/17 11:24 98.7 73 16 145/63 97 Room Air 02/09/17 10:55 Room Air 2.0 02/09/17 09:16 70 154/73 02/09/17 09:15 70 154/73 02/09/17 09:15 154/73 02/09/17 08:00 98.3 70 18 154/73 98 Room Air 02/09/17 06:00 155/65 02/09/17 06:00 155/65 02/09/17 04:00 98.4 76 18 155/65 96 Room Air 02/08/17 22:00 159/66 02/08/17 22:00 159/66 02/08/17 21:50 159/66 02/08/17 20:56 83 163/72 02/08/17 20:55 83 163/72 02/08/17 20:10 98.8 83 18 163/72 97 Room Air 02/08/17 16:58 153/71 02/08/17 16:00 98.9 83 20 142/76 95 Room Air 02/08/17 15:01 Room Air 2.0 Intake and Output 02/08/17 02/09/17 19:00 07:00 Intake Total 660 ml Output Total 1000 ml Balance -340 ml Intake Oral 660 ml Hemodialysis UF 1000 ml Current Medications Medications (Trade) Dose Ordered Sig/Rosa Route PRN Reason Start Time Stop Time Status Last Admin Dose Admin Acetaminophen (Tylenol) 650 mg Q4H PRN ORAL Mild Pain (Pain Scale 1-3) 02/05/17 12:00 03/07/17 11:59 Acetaminophen/ Hydrocodone Bitart (Magalia 7.5/325) 1 ea Q4H PRN ORAL Moderate Pain (Pain Scale 4-6) 02/05/17 12:00 02/12/17 11:59 Carvedilol (Coreg) 12.5 mg EVERY 12 HOURS ORAL 02/07/17 09:00 03/09/17 08:59 02/09/17 09:16 Cinacalcet (Sensipar) 90 mg QHS ORAL 02/05/17 21:00 03/07/17 20:59 02/08/17 20:58 Clonidine HCl (Catapres) 0.2 mg Q8HR ORAL 02/06/17 14:00 03/08/17 13:59 02/09/17 06:00 Docusate Sodium (Colace) 100 mg THREE TIMES A DAY ORAL 02/05/17 13:00 03/07/17 12:59 02/09/17 13:57 Dolutegravir Sodium (Tivicay) 50 mg DAILY ORAL 02/06/17 14:30 03/08/17 14:29 02/09/17 08:40 Enoxaparin Sodium (Lovenox) 30 mg DAILY SUBQ 02/06/17 09:00 03/08/17 08:59 02/09/17 08:42 Epoetin Kian (Procrit (for ESRD on dialysis)) 10,000 units SAT-SAT-SAT SUBQ 02/06/17 21:00 03/08/17 20:59 02/08/17 20:58 Folic Acid (Folate) 1 mg DAILY ORAL 02/06/17 09:00 03/08/17 08:59 02/09/17 08:40 Hydralazine HCl (Apresoline) 25 mg Q8HR ORAL 02/07/17 09:15 03/09/17 09:14 02/09/17 06:00 Hydromorphone HCl (Dilaudid) 1 mg Q4H PRN SUBQ Moderate Pain (Pain Scale 4-6) 02/05/17 12:00 02/12/17 11:59 Lisinopril (Zestril) 20 mg BID ORAL 02/06/17 09:00 03/08/17 08:59 02/09/17 09:15 Minoxidil (Loniten) 2.5 mg Q4H PRN ORAL HTN, BP over 160 syst 02/05/17 12:15 03/07/17 12:14 02/07/17 02:20 Nifedipine (Procardia XL) 60 mg Q12HR ORAL 02/07/17 09:00 03/09/17 08:59 02/09/17 09:15 Pantoprazole (Protonix) 40 mg EVERY 12 HOURS ORAL 02/05/17 21:00 03/07/17 20:59 02/09/17 08:40 Polyethylene Glycol (Miralax) 17 gm BEDTIME ORAL 02/07/17 21:00 03/09/17 20:59 02/08/17 20:54 Ritonavir (Norvir) 100 mg Q24HRS ORAL 02/06/17 14:30 03/08/17 14:29 02/09/17 13:57 Sevelamer Carbonate (Renvela) 1,600 mg THREE TIMES A DAY ORAL 02/05/17 13:00 03/07/17 12:59 02/09/17 13:57 Stavudine (Zerit) 20 mg Q24HRS ORAL 02/07/17 22:00 03/09/17 21:59 02/08/17 22:00 Trimethoprim/ Sulfamethoxazole (Bactrim Single Strength) 1 ea DAILY ORAL 02/06/17 12:15 02/13/17 12:14 02/09/17 08:40 Laboratory Tests 02/09/17 07:10: White Blood Count 6.7, Red Blood Count 2.78L, Hemoglobin 9.6L, Hematocrit 28.2L , Mean Corpuscular Volume 102H, Mean Corpuscular Hemoglobin 34.4H, Mean Corpuscular Hemoglobin Concent 33.9, Red Cell Distribution Width 16.1H, Platelet Count 175, Mean Platelet Volume 6.5, Neutrophils (%) (Auto) 71.5, Lymphocytes (%) (Auto) 16.2L, Monocytes (%) (Auto) 9.2, Eosinophils (%) (Auto) 2.3, Basophils (%) (Auto) 0.8, Sodium Level 136, Potassium Level 4.1, Chloride Level 98, Carbon Dioxide Level 25, Anion Gap 13, Blood Urea Nitrogen 24H, Creatinine 6.2H, Estimat Glomerular Filtration Rate 10.9, Glucose Level 83, Calcium Level 10.7H, Phosphorus Level 3.9, Total Bilirubin 0.5, Aspartate Amino Transf (AST/SGOT) 32, Alanine Aminotransferase (ALT/SGPT) 5, Alkaline Phosphatase 78, C-Reactive Protein, Quantitative 16.7H, Pro-B-Type Natriuretic Peptide 82241F, Total Protein 6.8, Albumin 3.4L, Globulin 3.4, Albumin/Globulin Ratio 1.0 Height (Feet): 5 Height (Inches): 9.00 Weight (Pounds): 126 Objective no other change VANNESSA CRUZ Feb 09, 2017 14:38
[2017-02-09 16:00] VITALS: BP 132/70
--- NOTE | 2017-02-12 08:37 | Discharge Summary ---
Discharge Summary Hospital Course Date of Admission Feb 05, 2017 at 05:04 Date of Discharge Feb 09, 2017 at 16:30 Admitting Diagnosis R hip end stage arthritis Reason for Hospitalization: elective surgery HPI José Saldivar Jr is a 71 year old male with PMH significant for HTN, ESRD, on HD, aortic stenosis, BPH, HIV status, was admitted on Feb 05, 2017 at 05:04 for end stage osteoarthritis right Hip for elective surgery Consultations GEORGE. Sameera CRUZ - floor assembler LAMBERT SANTO M.D. - ID specialist Feb 09, 2017 14:38 Procedures s/p 02/05/17 Right total hip arthroplasty by Gerardo Jesus M.D. Hospital Course s/p elective surgery course of recovery uneventful pain management n/v intact PT eval and Tx to ambulate fall precautions dressing C/D/I DVT prophylaxis with Lovenox tolerated diet HD as per nephro, renal parameters, lytes were closely monitored s/p 2 u PRBC transfusion, HH stable BP management with BB and MARIBEL continue ART for HIV, ID followed patient was stable for dc up with surgeon in 2 weeks FINAL DIAGNOSIS R hip end stage osteoarthritis s/p Right total hip arthroplasty anemia requiring blood transfusion ( 2 u) ESRD, on HD HTN HIV status Discharge Medications New Medications: Acetaminophen* (Acetaminophen 325MG Tablet*) 325 Mg Tablet 650 MG ORAL Q4H PRN for 30 Days, TAB Carvedilol (Coreg) 12.5 Mg Tablet 12.5 MG ORAL EVERY 12 HOURS for 30 Days, TAB Cinacalcet* (Sensipar*) 30 Mg Tablet 90 MG ORAL QHS for 30 Days, TAB Clonidine HCl (Clonidine HCl) 0.1 Mg Tablet 0.2 MG ORAL Q8HR for 30 Days, TAB Docusate Sodium* (Colace*) 100 Mg Capsule 100 MG ORAL THREE TIMES A DAY for 30 Days, CAP Dolutegravir Sodium (Tivicay) 50 Mg Tablet 50 MG ORAL DAILY for 30 Days, TAB Enoxaparin* (Lovenox*) 30 Mg/0.3 Ml Inj 30 MG SUBQ DAILY for 10 Days, #10 VIAL Hydralazine Hcl* (Hydralazine Hcl*) 25 Mg Tablet 25 MG ORAL Q8HR for 30 Days, TAB Hydrocodone/Acetaminophen 7.5-325* (Hydrocodon-Acetaminoph 7.5-325*) 1 Each Tablet 1 EA ORAL Q4H PRN for 30 Days, TAB Lisinopril* (Lisinopril*) 10 Mg Tablet 20 MG ORAL BID for 30 Days, TAB Minoxidil (Minoxidil) 2.5 Mg Tablet 2.5 MG ORAL Q4H PRN for 30 Days, TAB Nifedipine Xl* (Procardia Xl*) 30 Mg Tab.er.24 60 MG ORAL Q12HR for 30 Days, TAB Pantoprazole* (Protonix*) 40 Mg Tablet.dr 40 MG ORAL EVERY 12 HOURS for 30 Days, TAB Polyethylene Glycol 3350* (Miralax*) 17 Gm Powd.pack 17 GM ORAL BEDTIME for 30 Days, PACK Ritonavir* (Norvir*) 100 Mg Capsule 100 MG ORAL Q24HRS for 30 Days, CAP Sevelamer Carbonate (Renvela) 800 Mg Tablet 1600 MG ORAL THREE TIMES A DAY for 30 Days, TAB Stavudine (Zerit) 20 Mg Capsule 20 MG ORAL Q24HRS for 30 Days, CAP Trimethoprim/Sulfamethoxazole (Bactrim 400-80 mg Tablet) 1 Each Tablet 1 EA ORAL DAILY for 30 Days, TAB Discontinued Medications: Cinacalcet* (Sensipar*) 30 Mg Tablet 90 MG PO QHS Discharge Condition Upon Discharge: stable Discharge Disposition Patient was discharged to SNF Discharge Diagnoses: Discharge Instructions Discharge Instructions Follow up with: [facility] Sat Diet: cardiac 2 GM Na, low fat, renal (80g protein, 2GM) Special Instructions I have been assigned to complete a D/C Summary on this account. I was not involved in the patient management Trinh Pitts NP (Vanchtein) Feb 12, 2017 08:37
== END 2017-02-09 16:30 | DRG 469 ==
LOC: SDSOVERFLO 05:04 → 3E 11:00
PROC: 0SR90JA Replacement of Right Hip Joint with Synthetic Substitute, Uncemented, Open Approach (ICD-10-PCS; principal; 2017-02-05 07:00)
PROC: 5A1D60Z (ICD-10-PCS; 2017-02-06)
PROC: 30233N1 Transfusion of Nonautologous Red Blood Cells into Peripheral Vein, Percutaneous Approach (ICD-10-PCS; 2017-02-08)
DX: M16.11 Unilateral primary osteoarthritis, right hip (principal); N18.6 End stage renal disease; B20 Human immunodeficiency virus [HIV] disease; I12.0 Hypertensive chronic kidney disease with stage 5 chronic kidney disease or end stage renal disease; Z99.2 Dependence on renal dialysis; Z86.11 Personal history of tuberculosis; I35.0 Nonrheumatic aortic (valve) stenosis; I25.10 Atherosclerotic heart disease of native coronary artery without angina pectoris; N40.0 Benign prostatic hyperplasia without lower urinary tract symptoms; Z86.718 Personal history of other venous thrombosis and embolism; D64.9 Anemia, unspecified
CPT/HCPCS: 36415; 71020; 72170; 80053; 82607; 82728; 83540; 83550; 83735; 83880; 84100; 84132; 84550; 85007; 85025; 85610; 85730; 86140; 86850; 86900; 86901; 86920; 87081; 93005; 94003; 94150; 94760

== ENCOUNTER 2018-09-18 12:10 | Inpatient (IN) | payer MEDICARE, OTHER ==
[~2018-09-18] VITALS: Ht 170.2 cm; Wt 62.6 kg
[~2018-09-18 12:10] MED LIST changes: +ACETAMINOPHEN325 M1 ORAL; +BACTRIM SINGLE S1 EA ORAL; +CLONIDINE0.1 MG ORAL; +COLACE100 MG ORAL; +COREG12.5 MG ORAL; +COZAAR50 MG ORAL; +HYDRALAZINE HCL25 M1 ORAL; +HYDROCODON-ACE1 EA16 ORAL; +LISINOPRIL10 MG ORAL; +LONITEN2.5 MG ORAL; +LOVENOX10 MG SUBQ; +MIRALAX17 G2 ORAL; +NORVIR100 MG ORAL; +PROCARDIA XL30 MG ORAL; +PROTONIX40 MG ORAL; +RENVELA800 MG ORAL; +SENSIPAR30 MG ORAL; +TIVICAY50 MG ORAL; +ZERIT ORAL
--- NOTE | 2018-09-18 12:10 | NUR ---
ED Nurse Note: Patient presents to ER due to RUE A/V fistula bleeding after dialysis. Patient completed the treatment. Dressing saturated with serosanguineous drainage noted. ERMD at bedside removed dressing, applied dermabond to the affected area. Bleeding controlled. Reports no pain, dizziness or drowsiness. Placed patient on rn cardiac. Bed in lowest position.
[2018-09-18 12:47] LABS: BASOPHILS % (AUTO) 1.1 % (0.0-2.0); EOSINOPHILS % (AUTO) 5.9 % (0.0-3.0); HEMOGLOBIN 11.1 G/DL (14.2-18.0); MEAN CORPUSCULAR VOLUME 96 FL (80-99); MONOCYTES % (AUTO) 8.2 % (1.0-10.0); NEUTROPHILS % (AUTO) 60.8 % (45.0-75.0); PLATELET COUNT 138 K/UL (150-450); RED BLOOD COUNT 3.63 M/UL (4.70-6.10); RED CELL DISTRIBUTION WIDTH 18.4 % (11.6-14.8); WHITE BLOOD COUNT 4.5 K/UL (4.8-10.8)
[2018-09-18 12:52] LABS: ANION GAP 11 mmol/L (5-15); BLOOD UREA NITROGEN 15 mg/dL (7-18); CALCIUM 8.9 MG/DL (8.5-10.1); CARBON DIOXIDE 31 MMOL/L (21-32); CHLORIDE 100 MMOL/L (98-107); CREATININE 4.3 MG/DL (0.55-1.30); POTASSIUM 3.8 MMOL/L (3.5-5.1); SODIUM 142 MMOL/L (136-145)
[2018-09-18 12:54] LABS: INR 1.1 (0.9-1.1)
[2018-09-18 13:03] LABS: ALANINE AMINOTRANSFERASE 14 U/L (12-78); ALBUMIN 3.1 G/DL (3.4-5.0); ALBUMIN/GLOBULIN RATIO 0.7 (1.0-2.7); ALKALINE PHOSPHATASE 727 U/L (46-116); ASPARTATE AMINO TRANSFERASE 25 U/L (15-37); BILIRUBIN,TOTAL 0.6 MG/DL (0.2-1.0); CREATINE KINASE 220 U/L (26-308)
--- NOTE | 2018-09-18 13:14 | Emergency Room Report ---
History of Present Illness General Chief Complaint: General Complaint Source: Patient Present Illness HPI Patient is sent in for bleeding dialysis fistula. He says is happened in the past. Patient brought by EMS post bleeding from dialysis fistula. Wrapped by EMT1s and not evaluated by EMT2s. Still some bleeding through dressing. Patient's uncertain how much blood he lost at the scene. He claims to be taking his blood pressure medication. He does have high blood pressure. Dialysis was completed today. Denies POSADA. 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 Reviewed Nursing Documentation: PMH: Agreed; PSxH: Agreed Nursing Documentation-PMH Past Medical History: No History, Except For Hx Cardiac Problems: Yes - aortic stenosis, HTN Hx Hypertension: Yes Hx Cancer: No Hx Gastrointestinal Problems: No Hx Dialysis: Yes - SHUNT RIGHT ARM- LAST DIALYSIS 09/18/18 Hx Neurological Problems: No Review of Systems All Other Systems: negative except mentioned in HPI Physical Exam Vital Signs Date Time Temp Pulse Resp B/P (MAP) Pulse Ox O2 Delivery O2 Flow Rate FiO2 09/18/18 12:05 98.2 72 20 129/70 100 Room Air Sp02 EP Interpretation: reviewed, normal General Appearance: no apparent distress, GCS 15, Chronically Ill Head: normocephalic Eyes: bilateral eye normal inspection, bilateral eye PERRL, bilateral eye Scleral Injection ENT: moist mucus membranes Neck: supple Respiratory: lungs clear, normal breath sounds Cardiovascular #1: regular rate, rhythm, no JVD, edema - trace Cardiovascular #2: 2+ radial (R) - Fistula upper arm, 2 sites with prior bleed Gastrointestinal: normal inspection, normal bowel sounds, non tender, no mass, non-distended Musculoskeletal: back normal, gait/station normal, normal range of motion, no calf tenderness Neurologic: alert, oriented x3, grossly normal Psychiatric: normal inspection Skin: warm/dry, other - see vasc Procedures Additional Procedure Procedure Narrative Removed dressings. Tourniquet ready. Betadine used. Dermabond used with hemostasis. Medical Decision Making Diagnostic Impression: Primary Impression: Hypertensive urgency Additional Impressions: Bleeding dialysis fistula Elevated troponin ESRD (end stage renal disease) on dialysis ER Course Patient brought by EMS post bleeding from dialysis fistula. DDX: fistula ulcer , hyper-anticoagulation, HTN amongst others. Bleeding needs emergent control. Also evaluation of H/H, lytes and bleeding time. As dialysis patient need to exclude myocardial injury. CXR also indicated as hypertensive. Bleeding controlled with Dermabond. See note. BP extremely high. Hydralazine given. BP slightly better. + Troponin. Aspirin, nitrates and metoprolol ordered. BP improved. Seen by Dr. Jimenez in ED. Admit telemetry. Laboratory Tests Test 09/18/18 12:25 White Blood Count 4.5 K/UL (4.8-10.8) L Red Blood Count 3.63 M/UL (4.70-6.10) L Hemoglobin 11.1 G/DL (14.2-18.0) L Hematocrit 35.0 % (42.0-52.0) L Mean Corpuscular Volume 96 FL (80-99) Mean Corpuscular Hemoglobin 30.5 PG (27.0-31.0) Mean Corpuscular Hemoglobin Concent 31.7 G/DL (32.0-36.0) L Red Cell Distribution Width 18.4 % (11.6-14.8) H Platelet Count 138 K/UL (150-450) L Mean Platelet Volume 6.3 FL (6.5-10.1) L Neutrophils (%) (Auto) 60.8 % (45.0-75.0) Lymphocytes (%) (Auto) 24.0 % (20.0-45.0) Monocytes (%) (Auto) 8.2 % (1.0-10.0) Eosinophils (%) (Auto) 5.9 % (0.0-3.0) H Basophils (%) (Auto) 1.1 % (0.0-2.0) Prothrombin Time 11.6 SEC (9.30-11.50) H Prothrombin Time INR 1.1 (0.9-1.1) PTT 28 SEC (23-33) Sodium Level 142 MMOL/L (136-145) Potassium Level 3.8 MMOL/L (3.5-5.1) Chloride Level 100 MMOL/L (98-107) Carbon Dioxide Level 31 MMOL/L (21-32) Anion Gap 11 mmol/L (5-15) Blood Urea Nitrogen 15 mg/dL (7-18) Creatinine 4.3 MG/DL (0.55-1.30) H Estimate Glomerular Filtration Rate mL/min (>60) Glucose Level 77 MG/DL (74-106) Calcium Level 8.9 MG/DL (8.5-10.1) Total Bilirubin 0.6 MG/DL (0.2-1.0) Aspartate Amino Transferase (AST) 25 U/L (15-37) Alanine Aminotransferase (ALT) 14 U/L (12-78) Alkaline Phosphatase 727 U/L (46-116) H Total Creatine Kinase 220 U/L (26-308) Troponin I 0.072 ng/mL (0.000-0.056) Pro-B-Type Natriuretic Peptide 59978 pg/mL (0-125) H Total Protein 7.8 G/DL (6.4-8.2) Albumin 3.1 G/DL (3.4-5.0) L Globulin 4.7 g/dL Albumin/Globulin Ratio 0.7 (1.0-2.7) L EKG Diagnostic Results Rate: normal Rhythm: NSR ST Segments: no acute changes - LVH Rhythm Strip Diag. Results EP Interpretation: yes Rhythm: NSR, no PVC's, no ectopy Chest X-Ray Diagnostic Results Chest X-Ray Diagnostic Results : Chest X-Ray Ordered: Yes # of Views/Limited/Complete: 1 View Indication: Other BP 149/87, P 67 Status: improved Disposition: ADMITTED INPATIENT Condition: Serious Referrals: NOT CHOSEN IPA/,REFERRING (PCP) Jesus Beaver MD Sep 18, 2018 13:14
[2018-09-18] MEDS ORDERED: Metoprolol 5mg/5ml Inj IVP SCH (13:15)
[2018-09-18] MEDS ORDERED: Nitroglycerin 2% oint pkt TOPIC ONE ×2 (13:15→13:30)
[2018-09-18] MEDS ORDERED: Metoprolol 5mg/5ml Inj IVP STA (13:16)
[2018-09-18 13:30] VITALS: BP 177/89
[2018-09-18] MEDS ORDERED: UNOBMED (13:59)
--- NOTE | 2018-09-18 14:11 | NUR ---
ED Nurse Note: No bleeding from (R) AV fistula noted. Patient resting in bed.
--- NOTE | 2018-09-18 14:32 | Diagnostic Imaging Report ---
Indication: Pain Comparison: 08/14/2018 A single view chest radiograph was obtained. Findings: The heart is enlarged with some prominence of the pulmonary vasculature within the lungs. No definite infiltrate or pulmonary vascular congestion identified at this time. Previous exam showed moderate CHF. The aorta is mildly enlarged consistent with atherosclerotic vascular disease. The bones are osteopenic. Impression: No acute disease
--- NOTE | 2018-09-18 14:50 | NUR ---
ED Nurse Note: Provided lunch tray. Patient refused swab for VRE.
[2018-09-18 15:26] VITALS: BP 164/85
--- NOTE | 2018-09-18 15:27 | NUR ---
ED Nurse Note: Patient consumed 100% of lunch tray. Patient resting in bed, asleep.
--- NOTE | 2018-09-18 15:46 | History & Physical ---
History and Physical History & Physicial HPI Patient is sent in for bleeding dialysis fistula. He says is happened in the past. The paramedics wrapped it of. Patient's uncertain how much blood he lost at the scene. He claims to be taking his blood pressure medication. He does have high blood pressure. Dialysis was completed today. No Known Allergies (Unverified , 03/05/12) Past Medical History: No History, Except For Hx Cardiac Problems: Yes - aortic stenosis, HTN Hx Hypertension: Yes Hx Dialysis: Yes - SHUNT RIGHT ARM- LAST DIALYSIS 09/18/18 Hypertensive urgency Bleeding dialysis fistula right: treated with Dermobond Elevated troponin ESRD (end stage renal disease) on dialysis HIV s/p right hip surgery echo previously mild global low kinesis 40% Ejfx # [id number] Raymond Jimenez MD Sep 18, 2018 15:46
--- NOTE | 2018-09-18 17:22 | NUR ---
ED Nurse Note: Report given to SEE Palm. Patient being transferred to the floor.
[2018-09-18] MEDS: Nitroglycerin Patch 0.4mg TDERMAL SCH (18:09)
[2018-09-18] MEDS: Docusate 100mg cap ORAL SCH (18:10)
--- NOTE | 2018-09-18 19:29 | NUR ---
HAND-OFF: Report given to Sangeetha.
--- NOTE | 2018-09-18 19:30 | NUR ---
NURSE NOTES: Pt received from ED. gambling monitor applied. Belonging list and valuables checked.
--- NOTE | 2018-09-18 19:33 | NUR ---
NURSE NOTES: Report received from SEE Palm. Pt is lying comfortably in semi-fowlers with no sign of distress. A+Ox4, denies pain/SOB. Respirations are even and unlabored on room air. IV site is patent, intact, and saline locked. Bed is at lowest position, brakes engaged, siderails x2, bed alarm on, and call light within reach. Pt is in stable condition at this time; will continue to monitor.
[2018-09-18 20:00] VITALS: BP 190/93
[2018-09-18] MEDS: Losartan 50mg tab ORAL SCH (21:22)
[2018-09-18] MEDS: Sensipar 30mg Tab ORAL SCH (21:22)
[2018-09-18] MEDS: cloNIDine 0.2mg Tab ORAL SCH (21:23)
--- NOTE | 2018-09-18 21:40 | NUR ---
NURSE NOTES: Pharmacy called regarding pt's HIV meds. Pt is unaware of which medications he takes at home. He also says there is no one that can bring in his HIV medications from home. Going to find out pt's pharmacy to find out which medications patient is on.
--- NOTE | 2018-09-18 21:47 | NUR ---
NURSE NOTES: Pt's pharmacy is [facility] on [address]. Pharmacy is closed now. Will endorse and call the pharmacy tomorrow.
--- NOTE | 2018-09-18 22:45 | History and Physical Report ---
DATE OF ADMISSION: 09/18/2018 HISTORY OF PRESENT ILLNESS: The patient is 73 year old and is under my care for his dialysis related issues. The patient came in from the dialysis unit to the emergency room by paramedics because he was bleeding from the right arm fistula. At the time of arrival, the patient had a blood pressure, which was recorded as 190/158. The patient was treated for hypertensive emergency and was treated for the right arm fistula bleeding. The site of bleedings were patched by the patching agent in the emergency room and currently is being admitted for further management since also the troponin was found to be elevated. PAST MEDICAL HISTORY: Significant for ESRD, on hemodialysis for the past 20 years. The patient is human immunodeficiency virus positive. Has hypertension. Had right hip surgery in the past. PHYSICAL EXAMINATION: GENERAL: Seen in the emergency room, not in any acute distress. VITAL SIGNS: Blood pressure 170/90, respiratory rate is 24, and pulse rate was 72. Afebrile. HEENT: Head normocephalic. LUNGS: No wheeze. Decreased breath sounds over the bases. Heart was regular. ABDOMEN: Soft. Right arm bleeding fistula stopped. EXTREMITIES: Lower extremities edema 1+ more over the right side. LABORATORY DATA: The patient's laboratories post dialysis, PTT 28. INR 1.1. Creatinine 4.3 and potassium 3.8. Troponin elevated at 0.072. Albumin 3.1. There is a chest x-ray, which was done suggestive of no acute disease. IMPRESSION: 1. Bleeding left arm fistula. 2. Hypertensive emergency. 3. Elevated troponin. 4. End-stage renal disease. 5. HIV positive. PLAN: 1. To admit on telemetry. 2. Keep the blood pressure under control. 3. Renal diet. 4. Continue human immunodeficiency virus medications. 5. BP management and p.r.n. for elevated BP medications ordered. 6. According to how the patient's condition evolves, we will make the proper changes in our future management. Raymond Jimenez M.D. DR: MALLY JOB#: [id number] CC:
[2018-09-19] VITALS (10 sets, daily range): BP systolic 123–218; BP diastolic 67–119
[2018-09-19] MEDS: Minoxidil 2.5mg tab ORAL PRN ×4 (00:27→16:45)
[2018-09-19] MEDS: cloNIDine 0.2mg Tab ORAL SCH ×3 (05:27→22:02)
[2018-09-19 06:39] LABS: BASOPHILS % (AUTO) 2.2 % (0.0-2.0); EOSINOPHILS % (AUTO) 7.6 % (0.0-3.0); HEMATOCRIT 29.8 % (42.0-52.0); HEMOGLOBIN 9.4 G/DL (14.2-18.0); LYMPHOCYTES % (AUTO) 37.3 % (20.0-45.0); MEAN CORPUSCULAR VOLUME 97 FL (80-99); MONOCYTES % (AUTO) 10.4 % (1.0-10.0); NEUTROPHILS % (AUTO) 42.5 % (45.0-75.0); PLATELET COUNT 144 K/UL (150-450); RED BLOOD COUNT 3.07 M/UL (4.70-6.10); RED CELL DISTRIBUTION WIDTH 18.8 % (11.6-14.8); WHITE BLOOD COUNT 3.5 K/UL (4.8-10.8)
[2018-09-19 07:16] LABS: ALBUMIN 2.9 G/DL (3.4-5.0); ALBUMIN/GLOBULIN RATIO 0.7 (1.0-2.7); ALKALINE PHOSPHATASE 670 U/L (46-116); ANION GAP 9 mmol/L (5-15); ASPARTATE AMINO TRANSFERASE 20 U/L (15-37); BILIRUBIN,TOTAL 0.4 MG/DL (0.2-1.0); BLOOD UREA NITROGEN 26 mg/dL (7-18); CALCIUM 8.6 MG/DL (8.5-10.1); CARBON DIOXIDE 31 MMOL/L (21-32); CHLORIDE 101 MMOL/L (98-107); CHOLESTEROL 184 MG/DL (< 200); CREATININE 6.3 MG/DL (0.55-1.30); FERRITIN 455 NG/ML (8-388); GAMMA GLUTAMYL TRANSPEPTIDASE 28 U/L (5-85); HDL CHOLESTEROL 60 MG/DL (40-60); PHOSPHORUS 3.2 MG/DL (2.5-4.9); POTASSIUM 4.2 MMOL/L (3.5-5.1); SODIUM 141 MMOL/L (136-145); TRIGLYCERIDES 105 MG/DL (30-150)
--- NOTE | 2018-09-19 07:19 | NUR ---
HAND-OFF: Report given to SEE Kumar. Pt is in stable condition; plan of care endorsed.
[2018-09-19 07:31] LABS: ALANINE AMINOTRANSFERASE 11 U/L (12-78)
--- NOTE | 2018-09-19 07:35 | NUR ---
CASE MANAGEMENT:REVIEW 73 YR OLD MALE BIBA FROM HOME CC: DIALYZED TODAY WITH BLEEDING FROM SHUNT SITE SI: HTN URGENCY. ELEVATED TROPONIN 98.3 72 20 190/158 100% ON RA H/H-11.1/35.0 PLT-138 CR+4.3 TROPONIN(+) 0.072 IS: IV HYDRALAZINE CLONIDINE PO ASA PO NITRO 2" X1 CXR : TO TELEMETRY UNIT
[2018-09-19 07:37] LABS: % IRON SATURATION 37 % (15-50); IRON 45 ug/dL (50-175); TOTAL IRON BINDING CAPACITY 123 ug/dL (250-450)
--- NOTE | 2018-09-19 07:37 | NUR ---
NURSE NOTES: Pt in bed in low position, HOB in high fowlers as the pt is eating breakfast in bed, pt Ox4 calm and cooperative, bed alarm on and call light at bedside, pt makes needs known, pt has bathroom privileges, pt is scheduled for HD today on RT AV fistula (thrill and brill auscultated), LT hand 18 patent and locked, pt denies pain, no s/s of distress or sob noted. Addendum: 09/19/18 at 0742 by GIULIANO SILVA RN NO dialysis scheduled yet.
[2018-09-19] MEDS: Docusate 100mg cap ORAL SCH ×3 (08:47→18:13)
[2018-09-19] MEDS: Losartan 50mg tab ORAL SCH ×2 (08:49→22:01)
[2018-09-19] MEDS ORDERED: HydrALAZINE 50mg tab ORAL SCH (09:00)
[2018-09-19] MEDS: Imdur 30mg tab ORAL SCH (10:42)
[2018-09-19] MEDS ORDERED: NORVIR100 MG ORAL (10:44)
[2018-09-19] MEDS ORDERED: REYATAZ150 MG ORAL (10:44)
[2018-09-19] MEDS ORDERED: EMTRIVA200 MG ORAL (10:44)
--- NOTE | 2018-09-19 14:17 | Consultation ---
History of Present Illness General Date patient seen: Sep 19, 2018 Chief Complaint: General Complaint Reason for Consultation: inpatient management Present Illness HPI 73 year old male with hx of HIV, HTN, COPD, ESRF, on chronic dialysis presented to ER with CC of bleeding from dialysis fistula. It was wrapped by cycle manager still some bleeding through dressing when presented to Er. It is unclear how the bleeding stopped. Patient's uncertain how much blood he lost at the scene. He is admitted to telemetry for further management. Allergies: Coded Allergies: No Known Allergies (Unverified , 03/05/12) Medication History Scheduled Amlodipine Besylate* (Amlodipine Besylate*), 10 MG PO DAILY, (Reported) Atazanavir Sulfate (Reyataz), 300 MG ORAL DAILY, (Reported) Cinacalcet* (Sensipar*), 90 MG ORAL QHS Clonidine HCl (Clonidine HCl), 0.2 MG PO TID, (Reported) Dolutegravir Sodium (Tivicay), 50 MG ORAL DAILY Emtricitabine* (Emtriva*), 200 MG ORAL TWICE A WEEK, (Reported) Enalapril Maleate* (Vasotec*), 20 MG PO BID, (Reported) Folic Acid* (Folic Acid*), 1 MG PO DAILY, (Reported) Losartan Potassium* (Cozaar*), 50 MG ORAL EVERY 12 HOURS Ritonavir* (Norvir*), 100 MG ORAL DAILY, (Reported) Sevelamer Carbonate (Renvela), 1,600 MG ORAL THREE TIMES A DAY Miscellaneous Medications Unable to Obtain Medications (Unable To Obtain Meds), (Reported) Discontinued Medications Abacavir Tab* (Ziagen Tab*), 300 MG PO BID, (Reported) Discontinued Reason: Pt stopped taking med Acyclovir (Acyclovir), 400 MG PO BID, (Reported) Discontinued Reason: MD discontinued med Atazanavir Sulfate (Reyataz), 150 MG PO DAILY, (Reported) Discontinued Reason: Medication dose changed Efavirenz (Sustiva), 200 MG PO DAILY, (Reported) Discontinued Reason: MD discontinued med Stavudine (Zerit), 20 MG ORAL Q24HRS Discontinued Reason: MD discontinued med Patient History Healthcare decision maker N Resuscitation status Full Code Advanced Directive on File Past Medical/Surgical History Past Medical/Surgical History: (1) Acute exacerbation of COPD with asthma (2) HIV disease (3) Arthritis of right hip (4) ESRD (end stage renal disease) on dialysis (5) History of hypertension (6) ESRF (end stage renal failure) Review of Systems All Other Systems: negative except mentioned in HPI Physical Exam General Appearance: WD/WN, no apparent distress Lines, tubes and drains: peripheral HEENT: normocephalic, atraumatic Neck: non-tender, normal alignment Respiratory/Chest: chest wall non-tender, lungs clear Breasts: no masses Cardiovascular/Chest: normal peripheral pulses Abdomen: normal bowel sounds, non tender Genitourinary/Rectal: normal genital exam Extremities: normal range of motion, non-tender Last 24 Hour Vital Signs Date Time Temp Pulse Resp B/P (MAP) Pulse Ox O2 Delivery O2 Flow Rate FiO2 09/19/18 13:21 165/72 (103) 09/19/18 13:21 165/72 09/19/18 12:00 99.1 73 20 194/83 (120) 96 09/19/18 10:42 70 142/119 09/19/18 10:42 142/119 09/19/18 09:35 142/119 (127) 09/19/18 08:49 218/98 09/19/18 08:47 218/98 09/19/18 08:47 70 218/98 09/19/18 08:21 Room Air 09/19/18 08:00 97.7 70 20 218/98 (138) 97 09/19/18 07:41 67 09/19/18 05:27 162/75 09/19/18 04:37 171/89 09/19/18 04:00 69 09/19/18 04:00 98.7 71 18 171/89 (116) 98 09/19/18 00:27 169/88 09/19/18 00:00 98.9 71 18 169/88 (115) 100 09/19/18 00:00 65 09/18/18 21:23 190/93 09/18/18 21:22 190/93 09/18/18 21:00 Room Air 09/18/18 20:00 77 09/18/18 20:00 98.9 71 18 190/93 (125) 98 09/18/18 18:09 176/77 09/18/18 18:02 Room Air 09/18/18 17:08 97.8 65 15 149/87 100 Room Air 09/18/18 15:26 98.0 70 15 164/85 99 Room Air Intake and Output 09/18/18 09/19/18 18:59 06:59 Intake Total 0 ml Balance 0 ml Intake Oral 0 ml # Voids 1 # Bowel Movements 1 1 Laboratory Tests Test 09/19/18 05:20 White Blood Count 3.5 K/UL (4.8-10.8) L Red Blood Count 3.07 M/UL (4.70-6.10) L Hemoglobin 9.4 G/DL (14.2-18.0) L Hematocrit 29.8 % (42.0-52.0) L Mean Corpuscular Volume 97 FL (80-99) Mean Corpuscular Hemoglobin 30.8 PG (27.0-31.0) Mean Corpuscular Hemoglobin Concent 31.7 G/DL (32.0-36.0) L Red Cell Distribution Width 18.8 % (11.6-14.8) H Platelet Count 144 K/UL (150-450) L Mean Platelet Volume 6.3 FL (6.5-10.1) L Neutrophils (%) (Auto) 42.5 % (45.0-75.0) L Lymphocytes (%) (Auto) 37.3 % (20.0-45.0) Monocytes (%) (Auto) 10.4 % (1.0-10.0) H Eosinophils (%) (Auto) 7.6 % (0.0-3.0) H Basophils (%) (Auto) 2.2 % (0.0-2.0) H Sodium Level 141 MMOL/L (136-145) Potassium Level 4.2 MMOL/L (3.5-5.1) Chloride Level 101 MMOL/L (98-107) Carbon Dioxide Level 31 MMOL/L (21-32) Anion Gap 9 mmol/L (5-15) Blood Urea Nitrogen 26 mg/dL (7-18) H Creatinine 6.3 MG/DL (0.55-1.30) H Estimat Glomerular Filtration Rate mL/min (>60) Glucose Level 70 MG/DL (74-106) L Hemoglobin A1c 4.1 % (4.3-6.0) L Calcium Level 8.6 MG/DL (8.5-10.1) Phosphorus Level 3.2 MG/DL (2.5-4.9) Magnesium Level 2.2 MG/DL (1.8-2.4) Iron Level 45 ug/dL (50-175) L Total Iron Binding Capacity 123 ug/dL (250-450) L Percent Iron Saturation 37 % (15-50) Unsaturated Iron Binding 78 ug/dL (112-346) L Ferritin 455 NG/ML (8-388) H Total Bilirubin 0.4 MG/DL (0.2-1.0) Gamma Glutamyl Transpeptidase 28 U/L (5-85) Aspartate Amino Transf (AST/SGOT) 20 U/L (15-37) Alanine Aminotransferase (ALT/SGPT) 11 U/L (12-78) L Alkaline Phosphatase 670 U/L (46-116) H Troponin I 0.104 ng/mL (0.000-0.056) C-Reactive Protein, Quantitative 1.1 mg/dL (0.00-0.90) H Pro-B-Type Natriuretic Peptide 81901 pg/mL (0-125) H Total Protein 7.1 G/DL (6.4-8.2) Albumin 2.9 G/DL (3.4-5.0) L Globulin 4.2 g/dL Albumin/Globulin Ratio 0.7 (1.0-2.7) L Triglycerides Level 105 MG/DL (30-150) Cholesterol Level 184 MG/DL (< 200) LDL Cholesterol 94 mg/dL (<100) HDL Cholesterol 60 MG/DL (40-60) Cholesterol/HDL Ratio 3.1 (3.3-4.4) L Vitamin B12 Level 607 PG/ML (193-986) Thyroid Stimulating Hormone (TSH) 1.780 uiU/mL (0.358-3.740) Height (Feet): 5 Height (Inches): 9.00 Weight (Pounds): 128 Medications Current Medications Medications (Trade) Dose Ordered Sig/Rosa Route PRN Reason Start Time Stop Time Status Last Admin Dose Admin Acetaminophen (Tylenol) 650 mg Q4H PRN ORAL Mild Pain/Temp > 100.5 09/19/18 09:00 10/19/18 08:59 Aspirin (ASA) 325 mg DAILY ORAL 09/19/18 09:00 10/19/18 08:59 09/19/18 10:42 Cinacalcet (Sensipar) 90 mg QHS ORAL 09/18/18 21:00 10/18/18 20:59 09/18/18 21:22 Clonidine HCl (Catapres tab) 0.2 mg Q8HR ORAL 09/18/18 22:00 10/18/18 21:59 09/19/18 13:21 Docusate Sodium (Colace) 100 mg TID ORAL 09/18/18 18:00 10/18/18 17:59 09/19/18 13:20 Dolutegravir Sodium (Tivicay) 50 mg DAILY ORAL 09/20/18 09:00 10/20/18 08:59 Emtricitabine (Emtriva) 200 mg TuFr@0900 ORAL 09/23/18 09:00 10/23/18 08:59 Folic Acid (Folate) 3 mg DAILY ORAL 09/19/18 09:00 10/19/18 08:59 09/19/18 08:47 Hydralazine HCl (Apresoline) 50 mg Q8HR ORAL 09/19/18 14:00 10/19/18 08:59 Isosorbide Mononitrate (Imdur) 60 mg DAILY ORAL 09/19/18 09:00 10/19/18 08:59 09/19/18 10:42 Losartan Potassium (Cozaar) 50 mg EVERY 12 HOURS ORAL 09/18/18 21:00 10/18/18 20:59 09/19/18 08:49 Minoxidil (Loniten) 2.5 mg Q4H PRN ORAL bp over 165 syst 09/18/18 16:43 10/18/18 16:42 09/19/18 08:47 Nifedipine (Procardia XL) 60 mg DAILY ORAL 09/19/18 09:00 10/19/18 08:59 09/19/18 10:42 Nitroglycerin (Ntg) 1 patch Q24H TDERMAL 09/18/18 18:00 10/18/18 17:59 09/18/18 18:09 Pantoprazole (Protonix) 40 mg Q12HR ORAL 09/18/18 21:00 10/18/18 20:59 09/19/18 08:46 Ritonavir (Norvir) 100 mg DAILY ORAL 09/20/18 09:00 10/20/18 08:59 Sevelamer Carbonate (Renvela) 1,600 mg THREE TIMES A DAY ORAL 09/18/18 18:00 10/18/18 17:59 09/19/18 13:20 Assessment/Plan Problem List: (1) Bleeding from dialysis shunt ICD Codes: T82.838A - Hemorrhage due to vascular prosthetic devices, implants and grafts, initial encounter SNOMED: 07137372 (2) ESRD (end stage renal disease) on dialysis ICD Codes: N18.6 - End stage renal disease; Z99.2 - Dependence on renal dialysis SNOMED: 364954270, 344659715, 808305334 (3) Elevated troponin ICD Codes: R74.8 - Abnormal levels of other serum enzymes SNOMED: 098343162, 159270915, 481820581 (4) COPD (chronic obstructive pulmonary disease) ICD Codes: J44.9 - Chronic obstructive pulmonary disease, unspecified SNOMED: 67371658 (5) HIV disease ICD Codes: B20 - Human immunodeficiency virus [HIV] disease SNOMED: 01360721 (6) History of hypertension ICD Codes: Z86.79 - Personal history of other diseases of the circulatory system SNOMED: 607953047 Assessment/Plan respiratory treatment titrate fio2 to sat of 92% Vascular surgery evaluation monitor BP symptomatic treatment dvt prophylaxis. Tahir Hull MD Sep 19, 2018 14:17
[2018-09-19] MEDS: HydrALAZINE 50mg tab ORAL SCH ×2 (14:44→22:01)
--- NOTE | 2018-09-19 17:25 | General Progress Note ---
Assessment/Plan Problem List: (1) Bleeding from dialysis shunt ICD Codes: T82.838A - Hemorrhage due to vascular prosthetic devices, implants and grafts, initial encounter SNOMED: 95902171 (2) ESRD (end stage renal disease) on dialysis ICD Codes: N18.6 - End stage renal disease; Z99.2 - Dependence on renal dialysis SNOMED: 567005503, 245479846, 115979838 (3) Hypertensive urgency ICD Codes: I16.0 - Hypertensive urgency SNOMED: 777716657 (4) Elevated troponin ICD Codes: R74.8 - Abnormal levels of other serum enzymes SNOMED: 062847252, 708679584, 462419013 (5) HIV disease ICD Codes: B20 - Human immunodeficiency virus [HIV] disease SNOMED: 52594767 (6) Cardiomyopathy ICD Codes: I42.9 - Cardiomyopathy, unspecified SNOMED: 00864426 Status: stable Status Narrative 1. Bleeding left arm fistula. 2. Hypertensive emergency. 3. Elevated troponin. 4. End-stage renal disease. 5. HIV positive. 6- Cardiomyopathy Assessment/Plan HD in am Adjust BP meds Nitrates due shunt revision Saturday Per orders Subjective ROS Limited/Unobtainable: No Allergies: Coded Allergies: No Known Allergies (Unverified , 03/05/12) Objective Last 24 Hour Vital Signs Date Time Temp Pulse Resp B/P (MAP) Pulse Ox O2 Delivery O2 Flow Rate FiO2 09/19/18 16:45 165/111 09/19/18 16:43 165/111 (129) 09/19/18 16:00 96.4 80 20 123/111 (115) 80 09/19/18 15:56 72 09/19/18 14:44 165/72 09/19/18 13:21 165/72 (103) 09/19/18 13:21 165/72 09/19/18 12:00 99.1 73 20 194/83 (120) 96 09/19/18 11:43 73 09/19/18 10:42 70 142/119 09/19/18 10:42 142/119 09/19/18 09:35 142/119 (127) 09/19/18 08:49 218/98 09/19/18 08:47 218/98 09/19/18 08:47 70 218/98 09/19/18 08:21 Room Air 09/19/18 08:00 97.7 70 20 218/98 (138) 97 09/19/18 07:41 67 09/19/18 05:27 162/75 09/19/18 04:37 171/89 09/19/18 04:00 69 09/19/18 04:00 98.7 71 18 171/89 (116) 98 09/19/18 00:27 169/88 09/19/18 00:00 98.9 71 18 169/88 (115) 100 09/19/18 00:00 65 09/18/18 21:23 190/93 09/18/18 21:22 190/93 09/18/18 21:00 Room Air 09/18/18 20:00 77 09/18/18 20:00 98.9 71 18 190/93 (125) 98 09/18/18 18:09 176/77 09/18/18 18:02 Room Air Intake and Output 09/18/18 09/19/18 19:00 07:00 Intake Total 0 ml Balance 0 ml Intake Oral 0 ml # Voids 1 # Bowel Movements 1 1 Laboratory Tests 09/19/18 05:20: White Blood Count 3.5L, Red Blood Count 3.07L, Hemoglobin 9.4L, Hematocrit 29.8L , Mean Corpuscular Volume 97, Mean Corpuscular Hemoglobin 30.8, Mean Corpuscular Hemoglobin Concent 31.7L, Red Cell Distribution Width 18.8H, Platelet Count 144L, Mean Platelet Volume 6.3L, Neutrophils (%) (Auto) 42.5L, Lymphocytes (%) (Auto) 37.3, Monocytes (%) (Auto) 10.4H, Eosinophils (%) (Auto) 7.6H, Basophils (%) (Auto) 2.2H, Sodium Level 141, Potassium Level 4.2, Chloride Level 101, Carbon Dioxide Level 31, Anion Gap 9, Blood Urea Nitrogen 26H, Creatinine 6.3H, Estimat Glomerular Filtration Rate , Glucose Level 70L, Hemoglobin A1c 4.1L, Calcium Level 8.6, Phosphorus Level 3.2, Magnesium Level 2.2, Iron Level 45L, Total Iron Binding Capacity 123L, Percent Iron Saturation 37, Unsaturated Iron Binding 78L, Ferritin 455H, Total Bilirubin 0.4, Gamma Glutamyl Transpeptidase 28, Aspartate Amino Transf (AST/SGOT) 20, Alanine Aminotransferase (ALT/SGPT) 11L, Alkaline Phosphatase 670H, Troponin I 0.104H, C -Reactive Protein, Quantitative 1.1H, Pro-B-Type Natriuretic Peptide 14226B, Total Protein 7.1, Albumin 2.9L, Globulin 4.2, Albumin/Globulin Ratio 0.7L, Triglycerides Level 105, Cholesterol Level 184, LDL Cholesterol 94, HDL Cholesterol 60, Cholesterol/HDL Ratio 3.1L, Vitamin B12 Level 607, Thyroid Stimulating Hormone (TSH) 1.780 Height (Feet): 5 Height (Inches): 9.00 Weight (Pounds): 128 General Appearance: no apparent distress Cardiovascular: normal rate Respiratory/Chest: decreased breath sounds Abdomen: soft Raymond Jimenez MD Sep 19, 2018 17:25
[2018-09-19] MEDS ORDERED: Carvedilol 6.25mg Tab ORAL SCH ×2 (17:30→21:00)
[2018-09-19] MEDS: Nitroglycerin Patch 0.4mg TDERMAL SCH (18:14)
--- NOTE | 2018-09-19 19:26 | NUR ---
HAND-OFF: Report given to Cynthia Correia.
--- NOTE | 2018-09-19 19:30 | NUR ---
NURSE NOTES: Received pt from SEE Kumar. Pt awake, alert, and talkative. Bed in lowest position. Call light within reach. Will continue to monitor.
[2018-09-19] MEDS: Sensipar 30mg Tab ORAL SCH (22:00)
--- NOTE | 2018-09-20 01:15 | Consultation ---
DATE OF CONSULTATION: 09/19/2018 VASCULAR SURGERY CONSULTATION CONSULTING PHYSICIAN: Uli Hudson M.D. REFERRING PHYSICIAN: Raymond Jimenez M.D. REASON FOR CONSULTATION: Recurrent right arm AV shunt bleeding with aneurysmal changes and forearm edema. HISTORY OF PRESENT ILLNESS: This is a 73-year-old male, who suffers from human immunodeficiency virus, hypertension, and cardiomyopathy. The patient has a right cephalic vein AV shunt, which is progressively aneurysmal. The patient had intermittent bleeding from the skin, which appears to be very thin now. The patient has right forearm edema due to cephalic vein arch occlusion. Vascular Surgery is consulted for further evaluation. The patient currently has no other complaints. No further bleeding noted since admission. PAST MEDICAL HISTORY: As above. History of human immunodeficiency virus, hypertension, cardiomyopathy, hypertensive emergency, history of right cephalic vein AV shunt, and right cephalic vein arch occlusion. MEDICATION: See attached MAR. ALLERGIES: No known drug allergies. SOCIAL HISTORY: Continues to smoke cigarettes. Denies any history of drugs or alcohol abuse. FAMILY HISTORY: Unremarkable. SYSTEM REVIEW: CARDIOVASCULAR: No history of chest pain or palpitation. PULMONARY: No cough or hemoptysis. GASTROINTESTINAL: No history of abdominal pain, constipation, or diarrhea. GENITOURINARY: No urinary symptoms, frequency, or hematuria. NEUROLOGIC: No history of strokes or seizures PHYSICAL EXAMINATION: VITAL SIGNS: The patient is afebrile at 97, heart rate is 80, respirations 20, blood pressure is 165/111, and saturation 96%. The patient has palpable radial pulses. Right cephalic vein AV shunt has a palpable thrill. It is diffusely aneurysmal. There are some areas of very thin skin where the access is being repeatedly used. There is right forearm edema. Intact radial pulses. Varicosities over the shoulder. LUNGS: Clear to auscultation. HEART: Regular rate and rhythm. ABDOMEN: Soft and nontender. EXTREMITIES: He has palpable femoral pulses. Intact pedal Dopplers bilaterally. LABORATORY AND DIAGNOSTIC DATA: Laboratory revealed WBC 3.5, hemoglobin 9.4, and platelet count is 144,000. Sodium 141, potassium 4.2, chloride 101, CO2 31, and anion gap is 9. BUN is 26, creatinine 6.3, and glucose 70. Alkaline phosphatase 670. Troponin is 0.104. IMPRESSION: 1. Malfunctioning right arm cephalic vein AV shunt with aneurysmal changes and very thin skin with recurrent bleeding at dialysis. 2. 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 3. End-stage renal failure, requiring permanent access for hemodialysis. 4. History of human immunodeficiency virus, cardiomyopathy, hypertension, and smoking history. PLAN AND RECOMMENDATIONS: We will obtain arm duplex. AV shunt can be used currently through the normal skin of the AV shunt. Once the patient is medically optimized and cleared, we will schedule the patient for surgical revision of the right arm AV shunt, resection of the aneurysm, revision and a tunneled Perma catheter. The above is discussed at length with the patient and the nurse at bedside. Uli Hudson M.D. DR: NIK JOB#: [id number] CC: Uli Hudson M.D.; Fax#: [phone] Raymond Jimenez M.D. MTDSunil
--- NOTE | 2018-09-20 03:23 | NUR ---
NURSE NOTES: Called and left a message with Dr. Jimenez regarding pts run of V-Tach. Awaiting call back
[2018-09-20 04:00] VITALS: BP 147/102
[2018-09-20] MEDS: HydrALAZINE 50mg tab ORAL SCH ×2 (05:19→22:35)
[2018-09-20] MEDS: cloNIDine 0.2mg Tab ORAL SCH ×3 (05:19→22:35)
[2018-09-20] MEDS ORDERED: Nitroglycerin 2% oint pkt TOPIC SCH (06:00)
--- NOTE | 2018-09-20 06:15 | Consultation ---
DATE OF CONSULTATION: 09/19/2018 CARDIOLOGY CONSULT CONSULTING PHYSICIAN: Jesus Mcneal M.D. REQUESTING PHYSICIAN: Raymond Jimenez M.D. REASON: Malignant hypertension and congestive heart failure. HISTORY OF PRESENT ILLNESS: This is a 73-year-old male. He has end-stage renal disease, on hemodialysis. He was bleeding from the fistula of his right arm and came to the emergency room yesterday with a blood pressure recorded to be as high as 190/158. Bleeding was controlled on the fistula site and the patient was admitted for further management that was to include management of hypertension and treatment of an elevated troponin level. The patient has not had any chest pain. PAST MEDICAL HISTORY: 1. End-stage renal disease, on hemodialysis for almost 20 years. 2. Hypertension and hypertensive heart disease with history of malignant hypertension in the past. 3. Right upper extremity AV fistula. 4. HIV/AIDS. 5. COPD. 6. Degenerative aortic valve disease with stenosis. MEDICATIONS: Reviewed and reconciled. ALLERGIES: None known. FAMILY HISTORY: Noncontributory. SOCIAL HISTORY: Negative for current smoking, alcohol, or substance abuse. REVIEW OF SYSTEMS: No fevers or chills. No loss of consciousness. No change in bowel habits. Prior echocardiograms performed revealed normal ejection fraction with concentric hypertrophy. No history of seizure or stroke. No history of diabetes. PHYSICAL EXAMINATION: GENERAL: Presently, in no acute distress. VITAL SIGNS: Blood pressure 123/111, pulse 80, respirations 20, and afebrile. HEENT: Conjunctivae are pink. Sclerae are anicteric. Oropharynx clear. Mucous membranes are moist. NECK: Supple. Jugular venous pressure normal. LUNGS: Clear. CARDIAC: Regular rhythm and rate. Normal S1 and S2 with a fourth heart sound and a 1/6 systolic murmur at base. ABDOMEN: Soft and nontender. EXTREMITIES: No edema. Palpable bruit over AV fistula. LABORATORY AND IMAGING DATA: White count 3.5 and hemoglobin 9.4. BUN 26 and creatinine 6.3. Troponin 0.104. Pro-natriuretic peptide 16,000. EKG on admission revealed sinus rhythm with no acute ST-T wave changes and voltage criteria for left ventricular hypertrophy. IMPRESSION: 1. Hypertensive urgency, status post bleeding from AV fistula, now controlled. 2. Anemia, multifactorial. 3. Acute on chronic diastolic congestive heart failure. 4. Acute myocardial ischemia and possible [id number] infarction. PLAN: 1. Cardiac monitoring. 2. Antiplatelet therapy with caution. 3. Maximize antihypertensive and antianginal regimen. 4. Echocardiogram to be checked. 5. Lipid panel to be obtained. 6. Further recommendations will follow. 7. We will review old records and consider myocardial perfusion scan for assessment of coronary flow reserve once blood pressure has been controlled. Jesus Mcneal M.D. DR: SASKIA JOB#: [id number] CC:
[2018-09-20 07:11] LABS: BASOPHILS % (AUTO) 0.7 % (0.0-2.0); EOSINOPHILS % (AUTO) 4.3 % (0.0-3.0); HEMATOCRIT 28.9 % (42.0-52.0); HEMOGLOBIN 9.2 G/DL (14.2-18.0); LYMPHOCYTES % (AUTO) 20.7 % (20.0-45.0); MEAN CORPUSCULAR VOLUME 97 FL (80-99); MONOCYTES % (AUTO) 5.6 % (1.0-10.0); NEUTROPHILS % (AUTO) 68.7 % (45.0-75.0); PLATELET COUNT 149 K/UL (150-450); RED BLOOD COUNT 2.98 M/UL (4.70-6.10); RED CELL DISTRIBUTION WIDTH 18.4 % (11.6-14.8); WHITE BLOOD COUNT 6.2 K/UL (4.8-10.8)
--- NOTE | 2018-09-20 07:25 | NUR ---
NURSE NOTES: Received report from Cynthia CUI. Resident in bed asleep but arousable. Bed in lowest position locked. No signs of distress noted. IV in L hand with 18G SL. Call light in easy reach. Will continue to monitor plan of care.
--- NOTE | 2018-09-20 07:25 | NUR ---
HAND-OFF: Report given to SEE Kumar.
[2018-09-20 07:38] LABS: CKMB 1.2 NG/ML (0.0-3.6)
[2018-09-20 07:42] LABS: ALANINE AMINOTRANSFERASE 9 U/L (12-78); ALBUMIN 2.8 G/DL (3.4-5.0); ALBUMIN/GLOBULIN RATIO 0.7 (1.0-2.7); ALKALINE PHOSPHATASE 665 U/L (46-116); ANION GAP 12 mmol/L (5-15); ASPARTATE AMINO TRANSFERASE 18 U/L (15-37); BILIRUBIN,TOTAL 0.3 MG/DL (0.2-1.0); BLOOD UREA NITROGEN 47 mg/dL (7-18); CALCIUM 8.2 MG/DL (8.5-10.1); CARBON DIOXIDE 30 MMOL/L (21-32); CHLORIDE 98 MMOL/L (98-107); CHOLESTEROL 189 MG/DL (< 200); CREATININE 8.7 MG/DL (0.55-1.30); HDL CHOLESTEROL 62 MG/DL (40-60); PHOSPHORUS 2.9 MG/DL (2.5-4.9); POTASSIUM 4.8 MMOL/L (3.5-5.1); SODIUM 139 MMOL/L (136-145); TRIGLYCERIDES 77 MG/DL (30-150)
[2018-09-20 08:00] VITALS: BP 161/82
[2018-09-20] MEDS ORDERED: Carvedilol 12.5mg tab ORAL SCH (09:00)
[2018-09-20] MEDS: Imdur 30mg tab ORAL SCH (09:00)
[2018-09-20] MEDS ORDERED: REYATAZ 300 MG ORAL SCH (09:00)
[2018-09-20] MEDS: Losartan 50mg tab ORAL SCH ×2 (09:00→21:13)
[2018-09-20] MEDS: Ritonavir 100mg tab ORAL SCH (09:56)
[2018-09-20] MEDS: Dolutegravir Sodium 50mg tab ORAL SCH (09:56)
[2018-09-20] MEDS: Docusate 100mg cap ORAL SCH ×3 (09:56→17:40)
[2018-09-20 12:00] VITALS: BP 144/115
[2018-09-20] MEDS: Nitroglycerin 2% oint pkt TOPIC SCH ×2 (12:38→17:40)
--- NOTE | 2018-09-20 12:39 | Pulmonology Progress Note ---
Assessment/Plan Problems: (1) COPD (chronic obstructive pulmonary disease) (2) Hypertensive urgency (3) Bleeding from dialysis shunt (4) Elevated troponin (5) ESRD (end stage renal disease) on dialysis (6) HIV disease (7) History of hypertension (8) Cardiomyopathy Assessment/Plan Echo pending all reviewed, including consults monitor BP titrate fio2 to sat of 92% respiratory treatment might need stress studies dvt prophylaxis. Subjective ROS Limited/Unobtainable: No Interval Events: eating lunch, getting dialylzed at the same time, not happy about it Allergies: Coded Allergies: No Known Allergies (Unverified , 03/05/12) Objective Last 24 Hour Vital Signs Date Time Temp Pulse Resp B/P (MAP) Pulse Ox O2 Delivery O2 Flow Rate FiO2 09/20/18 12:00 97.9 95 16 144/115 (125) 100 09/20/18 09:00 72 161/82 09/20/18 09:00 72 161/82 09/20/18 09:00 161/82 09/20/18 09:00 161/82 09/20/18 08:31 Room Air 09/20/18 08:00 98.6 72 20 161/82 (108) 98 09/20/18 07:55 73 09/20/18 05:19 147/102 09/20/18 05:19 147/102 09/20/18 04:00 98.3 72 20 147/102 (117) 98 09/20/18 04:00 71 09/20/18 02:20 85 09/20/18 00:00 73 09/19/18 23:47 153/76 (101) 09/19/18 22:02 157/67 09/19/18 22:01 157/67 09/19/18 22:01 157/67 09/19/18 21:00 Room Air 09/19/18 20:00 76 09/19/18 20:00 98.8 74 20 157/67 (97) 98 09/19/18 18:14 78 142/74 09/19/18 18:14 142/74 09/19/18 18:13 78 142/74 09/19/18 16:45 165/111 09/19/18 16:43 165/111 (129) 09/19/18 16:00 96.4 80 20 123/111 (115) 80 09/19/18 15:56 72 09/19/18 14:44 165/72 09/19/18 13:21 165/72 (103) 09/19/18 13:21 165/72 Intake and Output 09/19/18 09/20/18 18:59 06:59 Intake Total 570 ml Balance 570 ml Intake Oral 570 ml General Appearance: cachetic HEENT: normocephalic, atraumatic Respiratory/Chest: chest wall non-tender, lungs clear Cardiovascular: normal peripheral pulses, normal rate Abdomen: normal bowel sounds, no organomegaly Genitourinary: normal external genitalia Extremities: no clubbing 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 Complete Laboratory Tests 09/20/18 05:10: White Blood Count 6.2#, Red Blood Count 2.98L, Hemoglobin 9.2L, Hematocrit 28.9L , Mean Corpuscular Volume 97, Mean Corpuscular Hemoglobin 30.8, Mean Corpuscular Hemoglobin Concent 31.8L, Red Cell Distribution Width 18.4H, Platelet Count 149L, Mean Platelet Volume 5.7L, Neutrophils (%) (Auto) 68.7, Lymphocytes (%) (Auto) 20.7, Monocytes (%) (Auto) 5.6, Eosinophils (%) (Auto) 4.3H, Basophils (%) (Auto) 0.7, Sodium Level 139, Potassium Level 4.8, Chloride Level 98, Carbon Dioxide Level 30, Anion Gap 12, Blood Urea Nitrogen 47H, Creatinine 8.7H, Estimat Glomerular Filtration Rate , Glucose Level 65L, Calcium Level 8.2L, Phosphorus Level 2.9, Magnesium Level 2.2, Total Bilirubin 0.3, Aspartate Amino Transf (AST/SGOT) 18, Alanine Aminotransferase (ALT/SGPT) 9L, Alkaline Phosphatase 665H, Total Creatine Kinase 124, Creatine Kinase MB 1.2 , Creatine Kinase MB Relative Index 0.9, Troponin I 0.082H, Total Protein 7.1, Albumin 2.8L, Globulin 4.3, Albumin/Globulin Ratio 0.7L, Triglycerides Level 77 , Cholesterol Level 189, LDL Cholesterol 100, HDL Cholesterol 62H, Cholesterol/ HDL Ratio 3.0L Current Medications Medications (Trade) Dose Ordered Sig/Roas Route PRN Reason Start Time Stop Time Status Last Admin Dose Admin Acetaminophen (Tylenol) 650 mg Q4H PRN ORAL Mild Pain/Temp > 100.5 09/19/18 09:00 10/19/18 08:59 Aspirin (ASA) 325 mg DAILY ORAL 09/19/18 09:00 10/19/18 08:59 09/20/18 09:56 Carvedilol (Coreg) 12.5 mg EVERY 12 HOURS ORAL 09/20/18 09:00 10/20/18 08:59 Cinacalcet (Sensipar) 90 mg QHS ORAL 09/18/18 21:00 10/18/18 20:59 09/19/18 22:00 Clonidine HCl (Catapres tab) 0.2 mg Q8HR ORAL 09/18/18 22:00 10/18/18 21:59 09/20/18 05:19 Docusate Sodium (Colace) 100 mg TID ORAL 09/18/18 18:00 10/18/18 17:59 09/20/18 09:56 Dolutegravir Sodium (Tivicay) 50 mg DAILY ORAL 09/20/18 09:00 10/20/18 08:59 09/20/18 09:56 Emtricitabine (Emtriva) 200 mg TuFr@0900 ORAL 09/23/18 09:00 10/23/18 08:59 Folic Acid (Folate) 3 mg DAILY ORAL 09/19/18 09:00 10/19/18 08:59 09/20/18 09:57 Hydralazine HCl (Apresoline) 75 mg Q8HR ORAL 09/20/18 14:00 10/19/18 08:59 Isosorbide Mononitrate (Imdur) 60 mg DAILY ORAL 09/19/18 09:00 10/19/18 08:59 09/19/18 10:42 Losartan Potassium (Cozaar) 50 mg EVERY 12 HOURS ORAL 09/18/18 21:00 10/18/18 20:59 09/19/18 22:01 Minoxidil (Loniten) 2.5 mg Q4H PRN ORAL bp over 165 syst 09/18/18 16:43 10/18/18 16:42 09/19/18 16:45 Nifedipine (Procardia XL) 30 mg BID ORAL 09/19/18 18:00 10/19/18 17:59 09/19/18 18:14 Nitroglycerin (Nitro-Bid) 1 inch TID@0600,1200,1800 TOPIC 09/20/18 12:00 10/20/18 05:59 Pantoprazole (Protonix) 40 mg Q12HR ORAL 09/18/18 21:00 10/18/18 20:59 09/20/18 09:56 Ritonavir (Norvir) 100 mg DAILY ORAL 09/20/18 09:00 10/20/18 08:59 09/20/18 09:56 Sevelamer Carbonate (Renvela) 1,600 mg THREE TIMES A DAY ORAL 09/18/18 18:00 10/18/18 17:59 09/20/18 09:57 Tahir Hull MD Sep 20, 2018 12:39
--- NOTE | 2018-09-20 13:00 | NUR ---
NURSE NOTES: 'Right arm basilic vein map and Right arm venous duplex not available during weekends. Tech is only available sat.
[2018-09-20] MEDS ORDERED: HydrALAZINE 25mg tab ORAL SCH (14:00)
--- NOTE | 2018-09-20 14:03 | General Progress Note ---
Assessment/Plan Problem List: (1) Bleeding from dialysis shunt ICD Codes: T82.838A - Hemorrhage due to vascular prosthetic devices, implants and grafts, initial encounter SNOMED: 79843770 (2) ESRD (end stage renal disease) on dialysis ICD Codes: N18.6 - End stage renal disease; Z99.2 - Dependence on renal dialysis SNOMED: 349424898, 353213183, 245763926 (3) Hypertensive urgency ICD Codes: I16.0 - Hypertensive urgency SNOMED: 927873623 (4) Elevated troponin ICD Codes: R74.8 - Abnormal levels of other serum enzymes SNOMED: 160187245, 912573070, 509299268 (5) HIV disease ICD Codes: B20 - Human immunodeficiency virus [HIV] disease SNOMED: 17730017 (6) Cardiomyopathy ICD Codes: I42.9 - Cardiomyopathy, unspecified SNOMED: 68668280 Assessment/Plan HD today Adjustment of BP meds continues Nitrates due shunt revision Saturday cardiology eval appreciated Per orders Subjective ROS Limited/Unobtainable: No Constitutional: Reports: malaise Allergies: Coded Allergies: No Known Allergies (Unverified , 03/05/12) Objective Last 24 Hour Vital Signs Date Time Temp Pulse Resp B/P (MAP) Pulse Ox O2 Delivery O2 Flow Rate FiO2 09/20/18 12:38 144/115 09/20/18 12:00 97.9 95 16 144/115 (125) 100 09/20/18 09:00 72 161/82 09/20/18 09:00 72 161/82 09/20/18 09:00 161/82 09/20/18 09:00 161/82 09/20/18 08:31 Room Air 09/20/18 08:00 98.6 72 20 161/82 (108) 98 09/20/18 07:55 73 09/20/18 05:19 147/102 09/20/18 05:19 147/102 09/20/18 04:00 98.3 72 20 147/102 (117) 98 09/20/18 04:00 71 09/20/18 02:20 85 09/20/18 00:00 73 09/19/18 23:47 153/76 (101) 09/19/18 22:02 157/67 09/19/18 22:01 157/67 09/19/18 22:01 157/67 09/19/18 21:00 Room Air 09/19/18 20:00 76 09/19/18 20:00 98.8 74 20 157/67 (97) 98 09/19/18 18:14 78 142/74 09/19/18 18:14 142/74 09/19/18 18:13 78 142/74 09/19/18 16:45 165/111 09/19/18 16:43 165/111 (129) 09/19/18 16:00 96.4 80 20 123/111 (115) 80 09/19/18 15:56 72 09/19/18 14:44 165/72 Intake and Output 09/19/18 09/20/18 18:59 06:59 Intake Total 570 ml Balance 570 ml Intake Oral 570 ml Laboratory Tests 09/20/18 05:10: White Blood Count 6.2#, Red Blood Count 2.98L, Hemoglobin 9.2L, Hematocrit 28.9L , Mean Corpuscular Volume 97, Mean Corpuscular Hemoglobin 30.8, Mean Corpuscular Hemoglobin Concent 31.8L, Red Cell Distribution Width 18.4H, Platelet Count 149L, Mean Platelet Volume 5.7L, Neutrophils (%) (Auto) 68.7, Lymphocytes (%) (Auto) 20.7, Monocytes (%) (Auto) 5.6, Eosinophils (%) (Auto) 4.3H, Basophils (%) (Auto) 0.7, Sodium Level 139, Potassium Level 4.8, Chloride Level 98, Carbon Dioxide Level 30, Anion Gap 12, Blood Urea Nitrogen 47H, Creatinine 8.7H, Estimat Glomerular Filtration Rate , Glucose Level 65L, Calcium Level 8.2L, Phosphorus Level 2.9, Magnesium Level 2.2, Total Bilirubin 0.3, Aspartate Amino Transf (AST/SGOT) 18, Alanine Aminotransferase (ALT/SGPT) 9L, Alkaline Phosphatase 665H, Total Creatine Kinase 124, Creatine Kinase MB 1.2 , Creatine Kinase MB Relative Index 0.9, Troponin I 0.082H, Total Protein 7.1, Albumin 2.8L, Globulin 4.3, Albumin/Globulin Ratio 0.7L, Triglycerides Level 77 , Cholesterol Level 189, LDL Cholesterol 100, HDL Cholesterol 62H, Cholesterol/ HDL Ratio 3.0L Height (Feet): 5 Height (Inches): 9.00 Weight (Pounds): 139 General Appearance: no apparent distress Raymond Jimenez MD Sep 20, 2018 14:03
[2018-09-20 16:00] VITALS: BP 127/73
--- NOTE | 2018-09-20 19:30 | NUR ---
NURSE NOTES: Received pt. and report from SEE Irvin. Observe pt. resting in bed with both eyes open; watching TV. environmental monitoring specialist is in placed, IV site intact, asymptomatic and patent. Bed is in the lowest position and locked. Call light within reach. No signs and symptoms of acute distress noted at this time. Will continue plan of care.
--- NOTE | 2018-09-20 19:40 | NUR ---
HAND-OFF: Report given to Arlene CUI. Pt REMAINS STABLE.
[2018-09-20 20:00] VITALS: BP 123/66
[2018-09-20] MEDS: Sensipar 30mg Tab ORAL SCH (21:12)
[2018-09-20] MEDS: Carvedilol 12.5mg tab ORAL SCH (21:15)
--- NOTE | 2018-09-20 22:30 | Progress Note ---
DATE: 09/20/2018 CARDIOLOGY PROGRESS NOTE SUBJECTIVE: The patient is seen on hemodialysis. He is aggravated about his blood pressure lability. He has no chest pain and says he never has had chest pain. He denies shortness of breath. OBJECTIVE: VITAL SIGNS: Blood pressure 144/115, pulse 95, respirations 16, and afebrile. LUNGS: Clear. CARDIAC: Regular rhythm and rate. Normal S1, S2 with a fourth heart sound. ABDOMEN: Soft. EXTREMITIES: No edema. LABORATORY DATA: White count 6.2, hemoglobin 9.2. Potassium is 4.8. Magnesium is 2.2. Troponin is 0.082. CK is negative. IMPRESSION: 1. Malignant hypertension. 2. Acute myocardial ischemia. 3. Moderate protein-calorie malnutrition. 4. End-stage renal disease, on hemodialysis. 5. Hypertensive urgency. PLAN: 1. Continue anti-platelet therapy. 2. Add statin drug. 3. Further up titration of his antihypertensives is ongoing. Jesus Mcneal M.D. DR: MARIA ALEJANDRA JOB#: [id number] CC:
[2018-09-21] VITALS: BP 128/78
[2018-09-21 04:00] VITALS: BP 131/64
[2018-09-21] MEDS: cloNIDine 0.2mg Tab ORAL SCH ×3 (06:04→21:54)
[2018-09-21] MEDS: HydrALAZINE 50mg tab ORAL SCH ×3 (06:04→21:54)
[2018-09-21 06:49] LABS: BASOPHILS % (AUTO) 0.7 % (0.0-2.0); EOSINOPHILS % (AUTO) 4.9 % (0.0-3.0); HEMATOCRIT 28.6 % (42.0-52.0); HEMOGLOBIN 9.2 G/DL (14.2-18.0); LYMPHOCYTES % (AUTO) 27.3 % (20.0-45.0); MEAN CORPUSCULAR VOLUME 96 FL (80-99); MONOCYTES % (AUTO) 6.7 % (1.0-10.0); NEUTROPHILS % (AUTO) 60.4 % (45.0-75.0); PLATELET COUNT 123 K/UL (150-450); RED BLOOD COUNT 2.98 M/UL (4.70-6.10); WHITE BLOOD COUNT 5.3 K/UL (4.8-10.8)
[2018-09-21 06:52] LABS: INR 1.1 (0.9-1.1)
[2018-09-21 07:07] LABS: ALANINE AMINOTRANSFERASE 11 U/L (12-78); ALBUMIN 2.8 G/DL (3.4-5.0); ALBUMIN/GLOBULIN RATIO 0.6 (1.0-2.7); ALKALINE PHOSPHATASE 679 U/L (46-116); ANION GAP 9 mmol/L (5-15); ASPARTATE AMINO TRANSFERASE 16 U/L (15-37); BILIRUBIN,TOTAL 0.3 MG/DL (0.2-1.0); BLOOD UREA NITROGEN 47 mg/dL (7-18); CALCIUM 8.6 MG/DL (8.5-10.1); CARBON DIOXIDE 32 MMOL/L (21-32); CHLORIDE 97 MMOL/L (98-107); CREATININE 7.1 MG/DL (0.55-1.30); PHOSPHORUS 2.8 MG/DL (2.5-4.9); POTASSIUM 5.3 MMOL/L (3.5-5.1); SODIUM 138 MMOL/L (136-145)
[2018-09-21 08:00] VITALS: BP 118/64
--- NOTE | 2018-09-21 08:06 | NUR ---
NURSE NOTES: Pt in bed in low position, call light at bedside, bed alarm on, Pt calm and cooperative, 2 Liters out yesterday for HD, Pt Ox4, pt denies pain, IV site patent and asymptomatic, HOB in semi fowlers, pt makes needs known, no s/s of distress or sob noted.
--- NOTE | 2018-09-21 08:29 | NUR ---
HAND-OFF: Report given to SEE Kumar and SEE Wills. Pt. is in stable condition.
[2018-09-21] MEDS ORDERED: Imdur 30mg tab ORAL SCH (09:00)
[2018-09-21] MEDS: Docusate 100mg cap ORAL SCH ×3 (09:49→17:32)
[2018-09-21] MEDS: Dolutegravir Sodium 50mg tab ORAL SCH (09:50)
[2018-09-21] MEDS: Ritonavir 100mg tab ORAL SCH (09:51)
[2018-09-21] MEDS: Carvedilol 12.5mg tab ORAL SCH ×2 (09:51→21:53)
[2018-09-21] MEDS: Losartan 50mg tab ORAL SCH ×2 (09:52→21:53)
[2018-09-21] MEDS: Imdur 30mg tab ORAL SCH (09:52)
[2018-09-21] MEDS ORDERED: Sodium Polystyrene Sulfon/Sorb 15gm/60ml Susp ORAL ONE (11:00)
[2018-09-21 12:00] VITALS: BP 139/57
--- NOTE | 2018-09-21 12:07 | Pulmonology Progress Note ---
Assessment/Plan Problems: (1) COPD (chronic obstructive pulmonary disease) (2) Hypertensive urgency (3) Bleeding from dialysis shunt (4) Elevated troponin (5) ESRD (end stage renal disease) on dialysis (6) HIV disease (7) History of hypertension (8) Cardiomyopathy Assessment/Plan Echo reviewed: EF 45-50%, mild AR, moderate MR, diastolic dysfunction grade II, Mild pulmonary HTN all reviewed, including consults monitor BP, on Clonidin 2 mg, Hydralazine 100, Lisinopril, Minoxidil, Nifedipine titrate fio2 to sat of 92% HD by planner internship respiratory treatment might need stress studies dvt prophylaxis. Subjective ROS Limited/Unobtainable: No Interval Events: feeling better, no new complains Allergies: Coded Allergies: No Known Allergies (Unverified , 03/05/12) Objective Last 24 Hour Vital Signs Date Time Temp Pulse Resp B/P (MAP) Pulse Ox O2 Delivery O2 Flow Rate FiO2 09/21/18 09:52 68 105/62 09/21/18 09:52 105/62 09/21/18 09:52 105/62 09/21/18 09:51 68 105/62 09/21/18 08:59 Room Air 09/21/18 08:00 97.5 68 16 118/64 (82) 98 09/21/18 07:49 69 09/21/18 06:04 126/68 09/21/18 06:04 126/68 09/21/18 04:00 68 09/21/18 04:00 97.4 79 18 131/64 (86) 97 09/21/18 00:00 71 09/21/18 00:00 96.9 72 18 128/78 (95) 97 09/20/18 22:35 140/75 09/20/18 22:35 140/75 09/20/18 21:15 76 128/66 09/20/18 21:13 128/66 09/20/18 21:00 Room Air 09/20/18 20:00 97.5 61 18 123/66 (85) 98 09/20/18 20:00 81 09/20/18 17:40 127/73 09/20/18 17:40 73 127/73 09/20/18 16:00 98.4 73 19 127/73 (91) 100 09/20/18 15:41 144/115 09/20/18 15:41 144/115 09/20/18 15:36 78 09/20/18 12:38 144/115 Intake and Output 09/20/18 09/21/18 19:00 07:00 Intake Total 440 ml Output Total 2000 ml Balance -1560 ml Intake Oral 440 ml Output Hemodialysis UF 2000 ml Objective General Appearance: cachetic HEENT: normocephalic, atraumatic Respiratory/Chest: chest wall non-tender, lungs clear Cardiovascular: normal peripheral pulses, normal rate Abdomen: normal bowel sounds, no organomegaly Genitourinary: normal external genitalia Extremities: no clubbing, right arm fistula 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 Complete Laboratory Tests 09/21/18 05:05: White Blood Count 5.3, Red Blood Count 2.98L, Hemoglobin 9.2L, Hematocrit 28.6L , Mean Corpuscular Volume 96, Mean Corpuscular Hemoglobin 30.9, Mean Corpuscular Hemoglobin Concent 32.2, Red Cell Distribution Width 18.0H, Platelet Count 123L, Mean Platelet Volume 5.6L, Neutrophils (%) (Auto) 60.4, Lymphocytes (%) (Auto) 27.3, Monocytes (%) (Auto) 6.7, Eosinophils (%) (Auto) 4.9H, Basophils (%) (Auto) 0.7, Prothrombin Time 11.3, Prothromb Time International Ratio 1.1, Activated Partial Thromboplast Time 26, Sodium Level 138, Potassium Level 5.3H, Chloride Level 97L, Carbon Dioxide Level 32, Anion Gap 9, Blood Urea Nitrogen 47H, Creatinine 7.1H, Estimat Glomerular Filtration Rate , Glucose Level 74, Calcium Level 8.6, Phosphorus Level 2.8, Magnesium Level 2.2, Total Bilirubin 0.3, Aspartate Amino Transf (AST/SGOT) 16, Alanine Aminotransferase (ALT/SGPT) 11L, Alkaline Phosphatase 679H, Troponin I 0.089H, C -Reactive Protein, Quantitative 0.6, Pro-B-Type Natriuretic Peptide 37261H, Total Protein 7.2, Albumin 2.8L, Globulin 4.4, Albumin/Globulin Ratio 0.6L Current Medications Medications (Trade) Dose Ordered Sig/Rosa Route PRN Reason Start Time Stop Time Status Last Admin Dose Admin Acetaminophen (Tylenol) 650 mg Q4H PRN ORAL Mild Pain/Temp > 100.5 09/19/18 09:00 10/19/18 08:59 Aspirin (ASA) 325 mg DAILY ORAL 09/19/18 09:00 10/19/18 08:59 09/21/18 09:48 Carvedilol (Coreg) 25 mg EVERY 12 HOURS ORAL 09/20/18 21:00 10/20/18 08:59 09/20/18 21:15 Cinacalcet (Sensipar) 90 mg QHS ORAL 09/18/18 21:00 10/18/18 20:59 09/20/18 21:12 Clonidine HCl (Catapres tab) 0.2 mg Q8HR ORAL 09/18/18 22:00 10/18/18 21:59 09/21/18 06:04 Docusate Sodium (Colace) 100 mg TID ORAL 09/18/18 18:00 10/18/18 17:59 09/21/18 09:49 Dolutegravir Sodium (Tivicay) 50 mg DAILY ORAL 09/20/18 09:00 10/20/18 08:59 09/21/18 09:50 Emtricitabine (Emtriva) 200 mg TuFr@0900 ORAL 09/23/18 09:00 10/23/18 08:59 Folic Acid (Folate) 3 mg DAILY ORAL 09/19/18 09:00 10/19/18 08:59 09/21/18 09:49 Hydralazine HCl (Apresoline) 100 mg Q8HR ORAL 09/20/18 22:00 10/20/18 21:59 09/21/18 06:04 Isosorbide Mononitrate (Imdur) 60 mg DAILY ORAL 09/19/18 09:00 10/19/18 08:59 09/19/18 10:42 Losartan Potassium (Cozaar) 50 mg EVERY 12 HOURS ORAL 09/18/18 21:00 10/18/18 20:59 09/20/18 21:13 Minoxidil (Loniten) 2.5 mg Q4H PRN ORAL bp over 165 syst 09/18/18 16:43 10/18/18 16:42 09/19/18 16:45 Nifedipine (Procardia XL) 30 mg BID ORAL 09/19/18 18:00 10/19/18 17:59 09/20/18 17:40 Pantoprazole (Protonix) 40 mg Q12HR ORAL 09/18/18 21:00 10/18/18 20:59 09/21/18 09:49 Pravastatin Sodium (Pravachol) 10 mg BEDTIME ORAL 09/20/18 21:00 10/20/18 20:59 09/20/18 21:12 Ritonavir (Norvir) 100 mg DAILY ORAL 09/20/18 09:00 10/20/18 08:59 09/21/18 09:51 Sevelamer Carbonate (Renvela) 1,600 mg THREE TIMES A DAY ORAL 09/18/18 18:00 10/18/18 17:59 09/21/18 09:48 Tahir Hlul MD Sep 21, 2018 12:07
--- NOTE | 2018-09-21 13:01 | General Progress Note ---
Assessment/Plan Problem List: (1) Bleeding from dialysis shunt ICD Codes: T82.838A - Hemorrhage due to vascular prosthetic devices, implants and grafts, initial encounter SNOMED: 30829726 (2) ESRD (end stage renal disease) on dialysis ICD Codes: N18.6 - End stage renal disease; Z99.2 - Dependence on renal dialysis SNOMED: 199129907, 351117909, 523574043 (3) Hypertensive urgency ICD Codes: I16.0 - Hypertensive urgency SNOMED: 727466874 (4) Elevated troponin ICD Codes: R74.8 - Abnormal levels of other serum enzymes SNOMED: 193404635, 351175715, 978330261 (5) HIV disease ICD Codes: B20 - Human immunodeficiency virus [HIV] disease SNOMED: 35983093 (6) Cardiomyopathy ICD Codes: I42.9 - Cardiomyopathy, unspecified SNOMED: 38081409 Assessment/Plan HD 09/20 Adjustment of BP meds continues Nitrates due shunt revision Saturday cardiology eval appreciated Per orders Kayexelate for high K Subjective ROS Limited/Unobtainable: No Allergies: Coded Allergies: No Known Allergies (Unverified , 03/05/12) Objective Last 24 Hour Vital Signs Date Time Temp Pulse Resp B/P (MAP) Pulse Ox O2 Delivery O2 Flow Rate FiO2 09/21/18 12:00 98.4 65 20 139/57 (84) 98 09/21/18 09:52 68 105/62 09/21/18 09:52 105/62 09/21/18 09:52 105/62 09/21/18 09:51 68 105/62 09/21/18 08:59 Room Air 09/21/18 08:00 97.5 68 16 118/64 (82) 98 09/21/18 07:49 69 09/21/18 06:04 126/68 09/21/18 06:04 126/68 09/21/18 04:00 68 09/21/18 04:00 97.4 79 18 131/64 (86) 97 09/21/18 00:00 71 09/21/18 00:00 96.9 72 18 128/78 (95) 97 09/20/18 22:35 140/75 09/20/18 22:35 140/75 09/20/18 21:15 76 128/66 09/20/18 21:13 128/66 09/20/18 21:00 Room Air 09/20/18 20:00 97.5 61 18 123/66 (85) 98 09/20/18 20:00 81 09/20/18 17:40 127/73 09/20/18 17:40 73 127/73 09/20/18 16:00 98.4 73 19 127/73 (91) 100 09/20/18 15:41 144/115 09/20/18 15:41 144/115 09/20/18 15:36 78 Intake and Output 09/20/18 09/21/18 19:00 07:00 Intake Total 440 ml Output Total 2000 ml Balance -1560 ml Intake Oral 440 ml Output Hemodialysis UF 2000 ml Laboratory Tests 09/21/18 05:05: White Blood Count 5.3, Red Blood Count 2.98L, Hemoglobin 9.2L, Hematocrit 28.6L , Mean Corpuscular Volume 96, Mean Corpuscular Hemoglobin 30.9, Mean Corpuscular Hemoglobin Concent 32.2, Red Cell Distribution Width 18.0H, Platelet Count 123L, Mean Platelet Volume 5.6L, Neutrophils (%) (Auto) 60.4, Lymphocytes (%) (Auto) 27.3, Monocytes (%) (Auto) 6.7, Eosinophils (%) (Auto) 4.9H, Basophils (%) (Auto) 0.7, Prothrombin Time 11.3, Prothromb Time International Ratio 1.1, Activated Partial Thromboplast Time 26, Sodium Level 138, Potassium Level 5.3H, Chloride Level 97L, Carbon Dioxide Level 32, Anion Gap 9, Blood Urea Nitrogen 47H, Creatinine 7.1H, Estimat Glomerular Filtration Rate , Glucose Level 74, Calcium Level 8.6, Phosphorus Level 2.8, Magnesium Level 2.2, Total Bilirubin 0.3, Aspartate Amino Transf (AST/SGOT) 16, Alanine Aminotransferase (ALT/SGPT) 11L, Alkaline Phosphatase 679H, Troponin I 0.089H, C -Reactive Protein, Quantitative 0.6, Pro-B-Type Natriuretic Peptide 24422F, Total Protein 7.2, Albumin 2.8L, Globulin 4.4, Albumin/Globulin Ratio 0.6L Height (Feet): 5 Height (Inches): 9.00 Weight (Pounds): 140 General Appearance: no apparent distress Cardiovascular: normal rate Respiratory/Chest: lungs clear Abdomen: soft Extremities: other - right arm swollen and fistula aneurysmal Raymond Jimenez MD Sep 21, 2018 13:01
--- NOTE | 2018-09-21 13:51 | Anethesia Preoperative Eval ---
Anesthesia Pre-op PMH/ROS General Date of Evaluation: Sep 21, 2018 Time of Evaluation: 13:51 Anesthesiologist: Dr. Minaya ASA Score: ASA 3 Mallampati Score Class I : Soft palate, uvula, fauces, pillars visible Class II: Soft palate, uvula, fauces visible Class III: Soft palate, base of uvula visible Class IV: Only hard plate visible Mallampati Classification: Class II Surgeon: denis Diagnosis: AV shunt bleed Surgical Procedure: rt arm av shunt revision Family History: no anesthesia problems Allergies: Coded Allergies: No Known Allergies (Unverified , 03/05/12) Medications: see eMAR Patient NPO?: Yes NPO Date: Sep 21, 2018 NPO Time: 00:01 Past Medical History Cardiovascular: Reports: HTN, CAD, other - elevated tropinin; neg ck Pulmonary: Reports: asthma, COPD Gastrointestinal/Genitourinary: Reports: GERD, CRI, ESRD - last dialysis 09/18; k=5.3 on 09/21 Neurologic/Psychiatric: Denies: dementia, CVA, depression/anxiety, TIA, other Endocrine: Denies: DM, hypothyroidism, steroids, other HEENT: Denies: cataract (L), cataract (R), glaucoma, MARSHALL (L), MARSHALL (R), other Hematology/Immune: Reports: anemia; Denies: DVT, bleeding disorder, other Musculoskeletal/Integumentary: Reports: OA, other - HIV; Denies: RA, DJD, DDD, edema PMH Narrative: Hypertensive urgency Bleeding dialysis fistula right: treated with Dermobond Elevated troponin ESRD (end stage renal disease) on dialysis HIV s/p right hip surgery echo previously mild global low kinesis 40% Ejfx Anesthesia Pre-op Phys. Exam Physician Exam Last Vital Signs Date Time Temp Pulse Resp B/P (MAP) Pulse Ox O2 Delivery O2 Flow Rate FiO2 09/21/18 12:00 98.4 65 20 139/57 (84) 98 09/21/18 08:59 Room Air Constitutional: NAD Neurologic: CN 2-12 intact Cardiovascular: RRR Respiratory: CTA Gastrointestinal: S/NT/ND Airway Exam Mallampati Classification 2 Mallampati Score: Class II ROM: full Dentures: no upper, no lower Anesthesia Pre-op A/P Labs Hematology Test 09/21/18 05:05 White Blood Count 5.3 K/UL (4.8-10.8) Red Blood Count 2.98 M/UL (4.70-6.10) L Hemoglobin 9.2 G/DL (14.2-18.0) L Hematocrit 28.6 % (42.0-52.0) L Mean Corpuscular Volume 96 FL (80-99) Mean Corpuscular Hemoglobin 30.9 PG (27.0-31.0) Mean Corpuscular Hemoglobin Concent 32.2 G/DL (32.0-36.0) Red Cell Distribution Width 18.0 % (11.6-14.8) H Platelet Count 123 K/UL (150-450) L Mean Platelet Volume 5.6 FL (6.5-10.1) L Neutrophils (%) (Auto) 60.4 % (45.0-75.0) Lymphocytes (%) (Auto) 27.3 % (20.0-45.0) Monocytes (%) (Auto) 6.7 % (1.0-10.0) Eosinophils (%) (Auto) 4.9 % (0.0-3.0) H Basophils (%) (Auto) 0.7 % (0.0-2.0) Coagulation Test 09/21/18 05:05 Prothrombin Time 11.3 SEC (9.30-11.50) Prothromb Time International Ratio 1.1 (0.9-1.1) Activated Partial Thromboplast Time 26 SEC (23-33) Chemistry Test 09/21/18 05:05 Sodium Level 138 MMOL/L (136-145) Potassium Level 5.3 MMOL/L (3.5-5.1) H Chloride Level 97 MMOL/L (98-107) L Carbon Dioxide Level 32 MMOL/L (21-32) Anion Gap 9 mmol/L (5-15) Blood Urea Nitrogen 47 mg/dL (7-18) H Creatinine 7.1 MG/DL (0.55-1.30) H Estimat Glomerular Filtration Rate mL/min (>60) Glucose Level 74 MG/DL (74-106) Calcium Level 8.6 MG/DL (8.5-10.1) Phosphorus Level 2.8 MG/DL (2.5-4.9) Magnesium Level 2.2 MG/DL (1.8-2.4) Total Bilirubin 0.3 MG/DL (0.2-1.0) Aspartate Amino Transf (AST/SGOT) 16 U/L (15-37) Alanine Aminotransferase (ALT/SGPT) 11 U/L (12-78) L Alkaline Phosphatase 679 U/L (46-116) H Troponin I 0.089 ng/mL (0.000-0.056) C-Reactive Protein, Quantitative 0.6 mg/dL (0.00-0.90) Pro-B-Type Natriuretic Peptide 61276 pg/mL (0-125) H Total Protein 7.2 G/DL (6.4-8.2) Albumin 2.8 G/DL (3.4-5.0) L Globulin 4.4 g/dL Albumin/Globulin Ratio 0.6 (1.0-2.7) L Studies Pre-op Studies: EKG - SR, echo - ef 47% Risk Assessment & Plan Plan: general/mac Status Change Before Surgery: Aileen Yu CRNA Sep 21, 2018 13:51
--- NOTE | 2018-09-21 14:46 | NUR ---
CASE MANAGEMENT: REVIEW 09/21/2018 SI: HTN URGENCY. ELEVATED TROPONIN T 98.4 HR 65 RR 20 B/P 139/57 SATS 98% ON RA K 5.3 CL 97 BUN 47 CR 7.1 ALT 11ALP 679 TROPONIN 0.089 BNP 22820 IS: COZAAR PO Q12H COREG PO Q12H PRAVACHOL PO QHS FOLATE PO QD TIVICAY PO QD ASA PO QD IMDUR PO QD NORVIR PO QD PROCARDIA PO QD RENVELA PO TID TELE STATUS
[2018-09-21 16:00] VITALS: BP 128/71
--- NOTE | 2018-09-21 18:57 | NUR ---
HAND-OFF: Report given to Aditi Correia.
--- NOTE | 2018-09-21 19:10 | NUR ---
NURSE NOTES: Received patient from [facility]. Will continue plan of care.
[2018-09-21 20:00] VITALS: BP 161/83
--- NOTE | 2018-09-21 20:21 | NUR ---
NURSE NOTES: Patient refuses to sign consent for AV Shunt repair for tomorrow. Will still prep patient NPO at midnight and patient agrees. States he does not want to sign anything at the moment, will try again later.
[2018-09-21] MEDS: Sensipar 30mg Tab ORAL SCH (21:53)
[2018-09-22] VITALS (9 sets, daily range): BP systolic 99–175; BP diastolic 64–95
--- NOTE | 2018-09-22 00:13 | NUR ---
NURSE NOTES: Patient still does not want to discuss his AV shunt procedure and signing any consents in general. He stated he understands that he is NPO stating back "Don't eat nothing after midnight, just leave me alone".
--- NOTE | 2018-09-22 04:00 | Progress Note ---
DATE: 09/21/2018 CARDIOLOGY PROGRESS NOTE SUBJECTIVE: Blood pressure parameters are now on the low to normal range. The patient has no chest pain. No shortness of breath. OBJECTIVE: VITAL SIGNS: Blood pressure 105/62 to 139/57, pulse 65, and respirations 20. Afebrile. LUNGS: Clear. CARDIAC: Regular. ABDOMEN: Soft. EXTREMITIES: No edema. IMPRESSION: 1. Malignant hypertension, resolved. 2. AV shunt malfunction. 3. Acute myocardial ischemia, recovered. 4. End-stage renal disease. PLAN: 1. Stable for vascular surgical intervention for shunt revision under general anesthesia. 2. Hold parameters for antihypertensives. 3. Anti-platelet and antianginal regimen without change. 4. Hemodialysis with ultrafiltration for volume management. Jesus Mcneal M.D. DR: THA JOB#: [id number] CC:
[2018-09-22] MEDS: cloNIDine 0.2mg Tab ORAL SCH ×3 (05:18→22:11)
[2018-09-22] MEDS: HydrALAZINE 50mg tab ORAL SCH ×3 (05:18→22:11)
[2018-09-22] MEDS ORDERED: fentaNYL 100 mcg/2 mL IV ONE (06:59)
--- NOTE | 2018-09-22 07:00 | NUR ---
NURSE NOTES: Patient signed consent for AV shunt repair when surgical nurse arrived to the unit to crop picker patient for procedure. Blood transfusion refused witnessed by surgical nurse. Patient has been NPO since midnight.
[2018-09-22] MEDS ORDERED: Propofol 200mg/20ml IV ONE (07:08)
--- NOTE | 2018-09-22 07:10 | NUR ---
NURSE NOTES: Received report from SEE Pennington. Pt in bed in low position, call light at bedside, bed alarm on. Patient also went to have AV shunt repair. Pt calm and cooperative. Patient is AAOx4, pt denies pain, IV site patent and asymptomatic, HOB in semi fowlers, pt makes needs known, no s/s of distress or sob noted.
--- NOTE | 2018-09-22 07:10 | NUR ---
HAND-OFF: Report given to SEE Obrien.
[2018-09-22] MEDS ORDERED: Lidocaine 1% MPF 10mg/ml 5ml ONE (07:14)
--- NOTE | 2018-09-22 07:14 | Pre-Procedure Note/Attestation ---
Pre-Procedure Note/Attestation Complete Prior to Procedure Planned Procedure: right Procedure Narrative: Right arm av shunt revision and dialysis catheter permcath placement Indications for Procedure Pre-Operative Diagnosis: ESRD on HD Malfunctioning av shunt with aneurysmal bleeding HIV Attestation I attest that I discussed the nature of the procedure; its benefits; risks and complications; and alternatives (and the risks and benefits of such alternatives ), prior to the procedure, with the patient (or the patient's legal medical device sales representative). I attest that, if there was a reasonable possibility of needing a blood transfusion, the patient (or the patient's legal medical device sales representative) was given the [facility] standardized written summary, pursuant to the [place] Blood Safety Act ([place] Health and Safety Code # 1645, as amended). I attest that I re-evaluated the patient just prior to the surgery and that there has been no change in the patient's H&P, except as documented below: Uli Hudson MD Sep 22, 2018 07:14
[2018-09-22] MEDS ORDERED: Neosporin Oint Ud Pkt TOPIC ONE ×2 (07:27→07:29)
[2018-09-22] MEDS ORDERED: Heparin 5000 units/ml inj ONE (07:27)
[2018-09-22] MEDS ORDERED: Thrombin 5000 units TOPIC ONE (07:27)
[2018-09-22] MEDS ORDERED: Bupivacaine 0.25% Inj 30ml INJ ONE (07:28)
[2018-09-22] MEDS ORDERED: Lidocaine 1% Plain 30 ml INJ ONE (07:28)
[2018-09-22] MEDS ORDERED: Bacitracin 50000 Units Vial ONE (07:28)
[2018-09-22] MEDS ORDERED: Gelfoam Size TOPIC ONE (07:28)
[2018-09-22] MEDS ORDERED: NeoSporin Gu Irrig 1ml Amp IRRIG ONE (07:28)
[2018-09-22] MEDS ORDERED: Iothalamate Meglumine 60% 30ML INJ ONE (07:28)
[2018-09-22] MEDS ORDERED: Isovue-M 300 15ml INJ ONE (07:29)
[2018-09-22] MEDS ORDERED: NS 500ML ONE (07:30)
[2018-09-22] MEDS ORDERED: Sterile Water Irrig 1000ml IRRIG ONE (07:30)
[2018-09-22] MEDS ORDERED: Heparin 1000 units/ml 1ml Vial ONE (07:43)
[2018-09-22 07:53] LABS: ANION GAP 11 mmol/L (5-15); BLOOD UREA NITROGEN 69 mg/dL (7-18); CALCIUM 9.2 MG/DL (8.5-10.1); CARBON DIOXIDE 30 MMOL/L (21-32); CHLORIDE 97 MMOL/L (98-107); CREATININE 9.1 MG/DL (0.55-1.30); POTASSIUM 5.2 MMOL/L (3.5-5.1); SODIUM 137 MMOL/L (136-145)
[2018-09-22] MEDS ORDERED: NS 500ML IVPB ONE (08:05)
[2018-09-22] MEDS ORDERED: Sodium Chloride 10ml vial INJ ONE (08:11)
[2018-09-22] MEDS ORDERED: ePHEDrine 50mg/ml Inj ONE (08:11)
[2018-09-22] MEDS ORDERED: fentaNYL 100 mcg/2 mL IV PRN (08:30)
[2018-09-22] MEDS: Docusate 100mg cap ORAL SCH ×3 (09:00→17:24)
[2018-09-22] MEDS ORDERED: Bacitracin Oint 15gm Tube TOPIC ONE (09:20)
--- NOTE | 2018-09-22 09:40 | Operative Note - PDOC ---
Operative Note Operative Note Pre-op Diagnosis: ESRD on HD Malfunctioning av shunt with aneurysmal bleeding HIV Procedure: Resection of right arm av shunt aneurysms x2, ligation of cephalic vein and left IJ permcath Post-op Diagnosis: same as pre-op Surgeon: Uli Hudson MD Anesthesiologist: Kayley MCCANN Anesthesia: general Specimen: yes Complications: none Condition: stable Fluids: 200cc Estimated Blood Loss: minimal - 25cc Drains: none Implant(s) used?: Yes - Left IJ permcath 14.5fr x 27cm Hemostar Uli Gonzalez MD Sep 22, 2018 09:40
--- NOTE | 2018-09-22 09:43 | General Progress Note ---
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
--- NOTE | 2018-09-22 09:53 | Immediate Post-Op Evaluation ---
Immediate Post-Op Evalulation Immediate Post-Op Evalulation Procedure: Dialysis catheter placement, excision of R A-V shunt aneurysm Date of Evaluation: Sep 22, 2018 Time of Evaluation: 09:52 IV Fluids: 200 Blood Products: none Estimated Blood Loss: 25 Urinary Output: none Blood Pressure Systolic: 132 Blood Pressure Diastolic: 76 Pulse Rate: 72 Respiratory Rate: 22 O2 Sat by Pulse Oximetry: 98 Temperature (Fahrenheit): 97.6 Pain Score (1-10): 2 Nausea: No Vomiting: No Complications none Patient Status: awake, patent, none Hydration Status: adequate Tulio Zaldivar MD Sep 22, 2018 09:53
--- NOTE | 2018-09-22 09:55 | NUR ---
NURSE NOTES: Patient is off unit in OR/PACU.
--- NOTE | 2018-09-22 10:41 | Diagnostic Imaging Report ---
INDICATION: Pain, intraoperative TECHNIQUE: Intraoperative imaging Fluoroscopy time: 50.7 seconds Total dose: 0.92949 mGym2 Total number of images: 2 COMPARISON: None FINDINGS: Intraoperative images document placement of a left transjugular tunneled dialysis catheter, tip projected at the level of the high right atrium. IMPRESSION: Intraoperative imaging, as described
--- NOTE | 2018-09-22 10:46 | General Progress Note ---
Assessment/Plan Problem List: (1) Bleeding from dialysis shunt ICD Codes: T82.838A - Hemorrhage due to vascular prosthetic devices, implants and grafts, initial encounter SNOMED: 09459092 (2) ESRD (end stage renal disease) on dialysis ICD Codes: N18.6 - End stage renal disease; Z99.2 - Dependence on renal dialysis SNOMED: 594570317, 034006952, 333110086 (3) Hypertensive urgency ICD Codes: I16.0 - Hypertensive urgency SNOMED: 568235347 (4) Elevated troponin ICD Codes: R74.8 - Abnormal levels of other serum enzymes SNOMED: 057071036, 438563244, 260985495 (5) HIV disease ICD Codes: B20 - Human immunodeficiency virus [HIV] disease SNOMED: 63872457 (6) Cardiomyopathy ICD Codes: I42.9 - Cardiomyopathy, unspecified SNOMED: 54613358 Status: stable Assessment/Plan HD 09/20 next 09/23 Adjustment of BP meds continues Nitrates due shunt revision Saturday am: Revision of avf aneurysm and placement of permacath cardiology eval appreciated Per orders Kayexelate for high K as needed Subjective ROS Limited/Unobtainable: No Allergies: Coded Allergies: No Known Allergies (Unverified , 03/05/12) Objective Last 24 Hour Vital Signs Date Time Temp Pulse Resp B/P (MAP) Pulse Ox O2 Delivery O2 Flow Rate FiO2 09/22/18 09:58 85 22 138/92 97 Room Air 09/22/18 09:53 86 23 145/95 97 Simple Mask 6 09/22/18 09:53 72 22 98 09/22/18 09:48 97.4 80 20 132/76 100 Simple Mask 6 09/22/18 08:04 Room Air 09/22/18 05:18 99/64 09/22/18 05:18 99/64 09/22/18 04:00 96.9 63 18 99/64 (76) 99 09/22/18 03:42 63 09/21/18 23:44 71 09/21/18 21:54 161/83 09/21/18 21:54 161/83 09/21/18 21:53 71 161/83 09/21/18 21:53 161/83 09/21/18 21:00 Room Air 09/21/18 20:00 98.2 71 17 161/83 (109) 100 09/21/18 19:31 75 09/21/18 16:00 98.8 72 16 128/71 (90) 99 09/21/18 15:38 69 09/21/18 15:34 128/71 09/21/18 14:10 139/57 09/21/18 12:00 64 09/21/18 12:00 98.4 65 20 139/57 (84) 98 Current Medications Medications (Trade) Dose Ordered Sig/Rosa Route PRN Reason Start Time Stop Time Status Last Admin Dose Admin Acetaminophen (Tylenol) 650 mg Q4H PRN ORAL Mild Pain/Temp > 100.5 09/19/18 09:00 10/19/18 08:59 Aspirin (ASA) 325 mg DAILY ORAL 09/19/18 09:00 10/19/18 08:59 09/21/18 09:48 Carvedilol (Coreg) 25 mg EVERY 12 HOURS ORAL 09/20/18 21:00 10/20/18 08:59 09/21/18 21:53 Cefazolin Sodium 1 gm/Dextrose 55 ml @ 110 mls/hr BID IVPB 09/22/18 18:00 09/23/18 17:59 UNV Cinacalcet (Sensipar) 90 mg QHS ORAL 09/18/18 21:00 10/18/18 20:59 09/21/18 21:53 Clonidine HCl (Catapres tab) 0.2 mg Q8HR ORAL 09/18/18 22:00 10/18/18 21:59 09/22/18 05:18 Docusate Sodium (Colace) 100 mg TID ORAL 09/18/18 18:00 10/18/18 17:59 09/21/18 17:32 Dolutegravir Sodium (Tivicay) 50 mg DAILY ORAL 09/20/18 09:00 10/20/18 08:59 09/21/18 09:50 Emtricitabine (Emtriva) 200 mg TuFr@0900 ORAL 09/23/18 09:00 10/23/18 08:59 Fentanyl Citrate (Sublimaze 100 mcg/2 mL) 25 mcg Q10M PRN IV Moderate Pain (Pain Scale 4-6) 09/22/18 08:30 09/22/18 14:00 Folic Acid (Folate) 3 mg DAILY ORAL 09/19/18 09:00 10/19/18 08:59 09/21/18 09:49 Hydralazine HCl (Apresoline) 50 mg Q8HR ORAL 09/21/18 14:00 10/20/18 21:59 09/21/18 21:54 Isosorbide Mononitrate (Imdur) 60 mg DAILY ORAL 09/19/18 09:00 10/19/18 08:59 09/19/18 10:42 Losartan Potassium (Cozaar) 50 mg EVERY 12 HOURS ORAL 09/18/18 21:00 10/18/18 20:59 09/21/18 21:53 Minoxidil (Loniten) 2.5 mg Q4H PRN ORAL bp over 165 syst 09/18/18 16:43 10/18/18 16:42 09/19/18 16:45 Nifedipine (Procardia XL) 30 mg DAILY ORAL 09/22/18 09:00 10/19/18 17:59 Ondansetron HCl (Zofran) 4 mg Q1H PRN IVP Nausea & Vomiting 09/22/18 08:30 09/22/18 14:00 Pantoprazole (Protonix) 40 mg Q12HR ORAL 09/18/18 21:00 10/18/18 20:59 09/21/18 21:54 Pravastatin Sodium (Pravachol) 10 mg BEDTIME ORAL 09/20/18 21:00 10/20/18 20:59 09/21/18 21:52 Ritonavir (Norvir) 100 mg DAILY ORAL 09/20/18 09:00 10/20/18 08:59 09/21/18 09:51 Sevelamer Carbonate (Renvela) 1,600 mg THREE TIMES A DAY ORAL 09/18/18 18:00 10/18/18 17:59 09/21/18 17:32 Sodium Chloride 1,000 ml @ 10 mls/hr Q24H IVLG 09/22/18 08:23 09/22/18 14:00 Laboratory Tests 09/22/18 06:35: Sodium Level 137, Potassium Level 5.2H, Chloride Level 97L, Carbon Dioxide Level 30, Anion Gap 11, Blood Urea Nitrogen 69H, Creatinine 9.1H, Estimat Glomerular Filtration Rate , Glucose Level 73L, Calcium Level 9.2 Height (Feet): 5 Height (Inches): 7.00 Weight (Pounds): 139 General Appearance: no apparent distress Objective no change Raymond Jimenez MD Sep 22, 2018 10:46
--- NOTE | 2018-09-22 10:47 | General Progress Note ---
Assessment/Plan Problem List: (1) Bleeding from dialysis shunt ICD Codes: T82.838A - Hemorrhage due to vascular prosthetic devices, implants and grafts, initial encounter SNOMED: 03127400 (2) ESRD (end stage renal disease) on dialysis ICD Codes: N18.6 - End stage renal disease; Z99.2 - Dependence on renal dialysis SNOMED: 785840015, 249266451, 380894211 (3) Hypertensive urgency ICD Codes: I16.0 - Hypertensive urgency SNOMED: 728560861 (4) Elevated troponin ICD Codes: R74.8 - Abnormal levels of other serum enzymes SNOMED: 194836317, 701943330, 666922024 (5) HIV disease ICD Codes: B20 - Human immunodeficiency virus [HIV] disease SNOMED: 47367142 (6) Cardiomyopathy ICD Codes: I42.9 - Cardiomyopathy, unspecified SNOMED: 18565626 Status: stable Assessment/Plan HD 09/20 next 09/23 Adjustment of BP meds continues Nitrates due shunt revision Saturday am: Revision of avf aneurysm and placement of permacath cardiology eval appreciated Per orders Kayexelate for high K as needed Subjective ROS Limited/Unobtainable: No Constitutional: Reports: malaise Allergies: Coded Allergies: No Known Allergies (Unverified , 03/05/12) Objective Last 24 Hour Vital Signs Date Time Temp Pulse Resp B/P (MAP) Pulse Ox O2 Delivery O2 Flow Rate FiO2 09/22/18 09:58 85 22 138/92 97 Room Air 09/22/18 09:53 86 23 145/95 97 Simple Mask 6 09/22/18 09:53 72 22 98 09/22/18 09:48 97.4 80 20 132/76 100 Simple Mask 6 09/22/18 08:04 Room Air 09/22/18 05:18 99/64 09/22/18 05:18 99/64 09/22/18 04:00 96.9 63 18 99/64 (76) 99 09/22/18 03:42 63 09/21/18 23:44 71 09/21/18 21:54 161/83 09/21/18 21:54 161/83 09/21/18 21:53 71 161/83 09/21/18 21:53 161/83 09/21/18 21:00 Room Air 09/21/18 20:00 98.2 71 17 161/83 (109) 100 09/21/18 19:31 75 09/21/18 16:00 98.8 72 16 128/71 (90) 99 09/21/18 15:38 69 09/21/18 15:34 128/71 09/21/18 14:10 139/57 09/21/18 12:00 64 09/21/18 12:00 98.4 65 20 139/57 (84) 98 Current Medications Medications (Trade) Dose Ordered Sig/Rosa Route PRN Reason Start Time Stop Time Status Last Admin Dose Admin Acetaminophen (Tylenol) 650 mg Q4H PRN ORAL Mild Pain/Temp > 100.5 09/19/18 09:00 10/19/18 08:59 Aspirin (ASA) 325 mg DAILY ORAL 09/19/18 09:00 10/19/18 08:59 09/21/18 09:48 Carvedilol (Coreg) 25 mg EVERY 12 HOURS ORAL 09/20/18 21:00 10/20/18 08:59 09/21/18 21:53 Cefazolin Sodium 1 gm/Dextrose 55 ml @ 110 mls/hr BID IVPB 09/22/18 18:00 09/23/18 17:59 UNV Cinacalcet (Sensipar) 90 mg QHS ORAL 09/18/18 21:00 10/18/18 20:59 09/21/18 21:53 Clonidine HCl (Catapres tab) 0.2 mg Q8HR ORAL 09/18/18 22:00 10/18/18 21:59 09/22/18 05:18 Docusate Sodium (Colace) 100 mg TID ORAL 09/18/18 18:00 10/18/18 17:59 09/21/18 17:32 Dolutegravir Sodium (Tivicay) 50 mg DAILY ORAL 09/20/18 09:00 10/20/18 08:59 09/21/18 09:50 Emtricitabine (Emtriva) 200 mg TuFr@0900 ORAL 09/23/18 09:00 10/23/18 08:59 Fentanyl Citrate (Sublimaze 100 mcg/2 mL) 25 mcg Q10M PRN IV Moderate Pain (Pain Scale 4-6) 09/22/18 08:30 09/22/18 14:00 Folic Acid (Folate) 3 mg DAILY ORAL 09/19/18 09:00 10/19/18 08:59 09/21/18 09:49 Hydralazine HCl (Apresoline) 50 mg Q8HR ORAL 09/21/18 14:00 10/20/18 21:59 09/21/18 21:54 Isosorbide Mononitrate (Imdur) 60 mg DAILY ORAL 09/19/18 09:00 10/19/18 08:59 09/19/18 10:42 Losartan Potassium (Cozaar) 50 mg EVERY 12 HOURS ORAL 09/18/18 21:00 10/18/18 20:59 09/21/18 21:53 Minoxidil (Loniten) 2.5 mg Q4H PRN ORAL bp over 165 syst 09/18/18 16:43 10/18/18 16:42 09/19/18 16:45 Nifedipine (Procardia XL) 30 mg DAILY ORAL 09/22/18 09:00 10/19/18 17:59 Ondansetron HCl (Zofran) 4 mg Q1H PRN IVP Nausea & Vomiting 09/22/18 08:30 09/22/18 14:00 Pantoprazole (Protonix) 40 mg Q12HR ORAL 09/18/18 21:00 10/18/18 20:59 09/21/18 21:54 Pravastatin Sodium (Pravachol) 10 mg BEDTIME ORAL 09/20/18 21:00 10/20/18 20:59 09/21/18 21:52 Ritonavir (Norvir) 100 mg DAILY ORAL 09/20/18 09:00 10/20/18 08:59 09/21/18 09:51 Sevelamer Carbonate (Renvela) 1,600 mg THREE TIMES A DAY ORAL 09/18/18 18:00 10/18/18 17:59 09/21/18 17:32 Sodium Chloride 1,000 ml @ 10 mls/hr Q24H IVLG 09/22/18 08:23 09/22/18 14:00 Laboratory Tests 09/22/18 06:35: Sodium Level 137, Potassium Level 5.2H, Chloride Level 97L, Carbon Dioxide Level 30, Anion Gap 11, Blood Urea Nitrogen 69H, Creatinine 9.1H, Estimat Glomerular Filtration Rate , Glucose Level 73L, Calcium Level 9.2 Height (Feet): 5 Height (Inches): 7.00 Weight (Pounds): 139 General Appearance: no apparent distress Cardiovascular: normal rate Respiratory/Chest: lungs clear Abdomen: soft Raymond Jimenez MD Sep 22, 2018 10:47
--- NOTE | 2018-09-22 10:49 | NUR ---
NURSE NOTES: Patient arrived to at 10:35am. Received report from SEE Aldridge. Ok to use left chest permacath for HD. Ok Renal diet and CXR completed. Need to verify AM meds and vein mapping with primary doctor. Addendum: 09/22/18 at 1105 by Micah Duran RN NURSE NOTES: Left permacath is intact and dressing is dry/intact. Right arm and flaco wrap bandage with non-pitting edema. patient states he has sensation in his right arm and denies pain at this time. Addendum: 09/22/18 at 1111 by Micah Duran RN Patient states he wants to eat breakfast first before having v/s checked. Unable to give medications till v/s checked.
--- NOTE | 2018-09-22 10:58 | NUR ---
NURSE NOTES: Spoke with Dr. Jimenez about Potassium 5.2. No new orders at this time. Report on patient left permacath. States dialysis tomorrow on 09/23/18. ANISH was called and spoke with
--- NOTE | 2018-09-22 11:26 | Pulmonology Progress Note ---
Assessment/Plan Problems: (1) COPD (chronic obstructive pulmonary disease) (2) Hypertensive urgency (3) Bleeding from dialysis shunt (4) Elevated troponin (5) ESRD (end stage renal disease) on dialysis (6) HIV disease (7) History of hypertension (8) Cardiomyopathy Assessment/Plan Echo reviewed: EF 45-50%, mild AR, moderate MR, diastolic dysfunction grade II, Mild pulmonary HTN all reviewed, including consults monitor BP, on Clonidin 2 mg, Hydralazine 100, Lisinopril, Minoxidil, Nifedipine , BP still high titrate fio2 to sat of 92% HD by gunstock spray unit adjuster respiratory treatment troponin level unchanged, there is no typical peak and trough might need stress studies dvt prophylaxis. Subjective Interval Events: still c/o pain around right arm fistual Allergies: Coded Allergies: No Known Allergies (Unverified , 03/05/12) Objective Last 24 Hour Vital Signs Date Time Temp Pulse Resp B/P (MAP) Pulse Ox O2 Delivery O2 Flow Rate FiO2 09/22/18 10:35 97.8 78 19 175/95 96 Room Air 09/22/18 10:20 78 19 169/92 96 Room Air 09/22/18 10:10 82 21 159/91 96 Room Air 09/22/18 09:58 85 22 138/92 97 Room Air 09/22/18 09:53 86 23 145/95 97 Simple Mask 6 09/22/18 09:53 72 22 98 09/22/18 09:48 97.4 80 20 132/76 100 Simple Mask 6 09/22/18 08:04 Room Air 09/22/18 05:18 99/64 09/22/18 05:18 99/64 09/22/18 04:00 96.9 63 18 99/64 (76) 99 09/22/18 03:42 63 09/21/18 23:44 71 09/21/18 21:54 161/83 09/21/18 21:54 161/83 09/21/18 21:53 71 161/83 09/21/18 21:53 161/83 09/21/18 21:00 Room Air 09/21/18 20:00 98.2 71 17 161/83 (109) 100 09/21/18 19:31 75 09/21/18 16:00 98.8 72 16 128/71 (90) 99 09/21/18 15:38 69 09/21/18 15:34 128/71 09/21/18 14:10 139/57 09/21/18 12:00 64 09/21/18 12:00 98.4 65 20 139/57 (84) 98 Objective General Appearance: cachetic HEENT: normocephalic, atraumatic Respiratory/Chest: chest wall non-tender, lungs clear Cardiovascular: normal peripheral pulses, normal rate Abdomen: normal bowel sounds, no organomegaly Genitourinary: normal external genitalia Extremities: no clubbing, right arm fistula Neurologic/Psychiatric: video tape transferrer II-XII grossly normal Laboratory Tests 09/22/18 06:35: Sodium Level 137, Potassium Level 5.2H, Chloride Level 97L, Carbon Dioxide Level 30, Anion Gap 11, Blood Urea Nitrogen 69H, Creatinine 9.1H, Estimat Glomerular Filtration Rate , Glucose Level 73L, Calcium Level 9.2 Current Medications Medications (Trade) Dose Ordered Sig/Rosa Route PRN Reason Start Time Stop Time Status Last Admin Dose Admin Acetaminophen (Tylenol) 650 mg Q4H PRN ORAL Mild Pain/Temp > 100.5 09/19/18 09:00 10/19/18 08:59 Aspirin (ASA) 325 mg DAILY ORAL 09/19/18 09:00 10/19/18 08:59 09/21/18 09:48 Carvedilol (Coreg) 25 mg EVERY 12 HOURS ORAL 09/20/18 21:00 10/20/18 08:59 09/21/18 21:53 Cefazolin Sodium 1 gm/Dextrose 55 ml @ 110 mls/hr DAILY IVPB 09/22/18 13:00 09/29/18 12:59 Cinacalcet (Sensipar) 90 mg QHS ORAL 09/18/18 21:00 10/18/18 20:59 09/21/18 21:53 Clonidine HCl (Catapres tab) 0.2 mg Q8HR ORAL 09/18/18 22:00 10/18/18 21:59 09/22/18 05:18 Docusate Sodium (Colace) 100 mg TID ORAL 09/18/18 18:00 10/18/18 17:59 09/21/18 17:32 Dolutegravir Sodium (Tivicay) 50 mg DAILY ORAL 09/20/18 09:00 10/20/18 08:59 09/21/18 09:50 Emtricitabine (Emtriva) 200 mg TuFr@0900 ORAL 09/23/18 09:00 10/23/18 08:59 Fentanyl Citrate (Sublimaze 100 mcg/2 mL) 25 mcg Q10M PRN IV Moderate Pain (Pain Scale 4-6) 09/22/18 08:30 09/22/18 14:00 Folic Acid (Folate) 3 mg DAILY ORAL 09/19/18 09:00 10/19/18 08:59 09/21/18 09:49 Hydralazine HCl (Apresoline) 50 mg Q8HR ORAL 09/21/18 14:00 10/20/18 21:59 09/21/18 21:54 Isosorbide Mononitrate (Imdur) 60 mg DAILY ORAL 09/19/18 09:00 10/19/18 08:59 09/19/18 10:42 Losartan Potassium (Cozaar) 50 mg EVERY 12 HOURS ORAL 09/18/18 21:00 10/18/18 20:59 09/21/18 21:53 Minoxidil (Loniten) 2.5 mg Q4H PRN ORAL bp over 165 syst 09/18/18 16:43 10/18/18 16:42 09/19/18 16:45 Nifedipine (Procardia XL) 30 mg DAILY ORAL 09/22/18 09:00 10/19/18 17:59 Ondansetron HCl (Zofran) 4 mg Q1H PRN IVP Nausea & Vomiting 09/22/18 08:30 09/22/18 14:00 Pantoprazole (Protonix) 40 mg Q12HR ORAL 09/18/18 21:00 10/18/18 20:59 09/21/18 21:54 Pravastatin Sodium (Pravachol) 10 mg BEDTIME ORAL 09/20/18 21:00 10/20/18 20:59 09/21/18 21:52 Ritonavir (Norvir) 100 mg DAILY ORAL 09/20/18 09:00 10/20/18 08:59 09/21/18 09:51 Sevelamer Carbonate (Renvela) 1,600 mg THREE TIMES A DAY ORAL 09/18/18 18:00 10/18/18 17:59 09/21/18 17:32 Sodium Chloride 1,000 ml @ 10 mls/hr Q24H IVLG 09/22/18 08:23 09/22/18 14:00 Tahir Hull MD Sep 22, 2018 11:26
[2018-09-22] MEDS: HYDROcodone/Acetamin 5/325 tab ORAL PRN ×3 (11:41→23:28)
[2018-09-22] MEDS: Carvedilol 12.5mg tab ORAL SCH ×2 (11:42→20:54)
[2018-09-22] MEDS: Losartan 50mg tab ORAL SCH ×2 (11:43→20:54)
[2018-09-22] MEDS: Imdur 30mg tab ORAL SCH (11:43)
--- NOTE | 2018-09-22 13:02 | Cardiology Report ---
APPROVED REPORT EKG Measurement Heart [id number] MA [id number] Sinus rhythm with 1st degree AV block with occasional premature ventricular complexes Left ventricular hypertrophy with repolarization abnormality Abnormal ECG
[2018-09-22] MEDS: Dolutegravir Sodium 50mg tab ORAL SCH (13:06)
[2018-09-22] MEDS: Ritonavir 100mg tab ORAL SCH (13:06)
[2018-09-22] MEDS: ceFAZolin sod 1 GM in D5W 55 ML IVPB SCH (13:54)
--- NOTE | 2018-09-22 14:00 | NUR ---
NURSE NOTES: Spoke to blood bank about 2 units PRBC for OR. Was told to contact doctor who entered order to received a cancelled order for blood tranfusion. Left message for Dr. Hudson about the blood tranfusion cancelled order. Awaiting callback.
--- NOTE | 2018-09-22 14:10 | Diagnostic Imaging Report ---
Indication: Post dialysis catheter placement Technique: One view of the chest Comparison: 09/18/2018 Findings: Interim placement of left jugular tunneled dialysis catheter, tip projecting at level of the high right atrium in good position. No gross pneumothorax. Lungs and pleural spaces remain clear. The heart size is normal. The aorta is tortuous and calcified Impression: Status post tunneled dialysis catheter placement, no radiographically evident complication No acute process
--- NOTE | 2018-09-22 14:28 | Cardiology Report ---
APPROVED REPORT EXAM: Two-dimensional and M-mode echocardiogram with Doppler and color Doppler. INDICATION Atherosclerosis M-Mode DIMENSIONS IVSd2.2 (0.7-1.1cm)Left Atrium (MM)6.1 (1.6-4.0cm) LVDd4.9 (3.5-5.6cm)Aortic Root3.1 (2.0-3.7cm) PWd1.6 (0.7-1.1cm)Aortic Cusp Exc.1.4 (1.5-2.0cm) LVDs3.6 (2.5-4.0cm) PWs2.0 cm Normal left ventricular chamber size. Global left ventricular hypokinesis. Left ventricular ejection fraction estimated to be 45%. Moderate left ventricular hypertrophy. No evidence of pericardial effusion. Mild left atrial enlargement. Right cardiac chamber sizes are within normal limits. Aortic valve calcification with decreased cusp excursion c/w aortic stenosis. Heavily thickened mitral valve leaflets with reduced excursion. Heavy mitral annulus and aortic root calcification. Normal pulmonic valve structure. Normal tricuspid valve structure. IVC is normal in size with physiological collapse. A color flow and spectral Doppler study was performed and revealed: Mild to moderate aortic insufficiency. Peak aortic valve gradient of 67 mmHg and a mean of 31 mmHg. Aortic valve area 1.0 cm2 calculated by continuity equation. Moderate mitral regurgitation. Mitral P1/2 time of 85 m/s is compatible with a mitral valve area of 1.2 cm2. Peak mitral valve diastolic gradient of 15 mmHg and a mean gradient of 5 mmHg. Mitral inflow velocities indicates possible pseudo normalization pattern implying significant left ventricular diastolic dysfunction (Grade II). Mild tricuspid regurgitation. Tricuspid systolic velocities suggests peak right ventricular systolic pressure of 38 mmHg, consistent with mild pulmonary hypertension. No pulmonic regurgitation present.
--- NOTE | 2018-09-22 19:33 | NUR ---
HAND-OFF: Report given to SEE Salas.
--- NOTE | 2018-09-22 19:35 | NUR ---
NURSE NOTES: Received report from SEE Darnell. Patient in bed awake in semi morton position showing no signs of acute distress. Respiration even and non labored on room air. No SOB noted. IV line patent and intact. wound dressing on right arm is intact with no signs of bleeding, pain or loss of sensation. Bed in lowest position. All needs attended and met. Will continue plan of care.
[2018-09-22] MEDS: Sensipar 30mg Tab ORAL SCH (20:50)
[2018-09-23] VITALS: BP 137/73
--- NOTE | 2018-09-23 01:00 | Progress Note ---
DATE: 09/22/2018 SUBJECTIVE: The patient is status post placement of a left jugular tunneled catheter for dialysis. His AV fistula was revised. It is not usable yet, hence the temporary catheter placement. OBJECTIVE: VITAL SIGNS: Blood pressure 140/90 earlier, now 107/49, heart rate 68, and respiratory rate 18. LUNGS: Clear. CARDIAC: Regular. Chest wall without bleeding or swelling or subcutaneous emphysema. CARDIAC: Regular rhythm and rate. Normal S1, S2 with a fourth heart sound. ABDOMEN: Soft. EXTREMITIES: No edema. IMPRESSION: 1. Malignant hypertension, now controlled. 2. Hypertensive heart disease. 3. End-stage renal disease status post revision of AV fistula. 4. Status post placement of temporary left jugular dialysis catheter. 5. Acute myocardial ischemia, resolving, unlikely due to malignant range blood pressure. 6. Acute on chronic diastolic congestive heart failure. PLAN: 1. Continue medical therapy. 2. Titrate multidrug regimen based on clinical parameters. 3. Outpatient ischemia workup if not recently done with myocardial perfusion scan. At this time, the patient wishes to defer. 4. He was made aware of risk factors for accelerated atherosclerosis. Jesus Mcneal M.D. DR: THA JOB#: [id number] CC:
[2018-09-23 04:00] VITALS: BP 147/73
[2018-09-23] MEDS: cloNIDine 0.2mg Tab ORAL SCH ×3 (05:29→22:39)
[2018-09-23] MEDS: HydrALAZINE 50mg tab ORAL SCH ×3 (05:30→22:39)
[2018-09-23] MEDS: HYDROcodone/Acetamin 5/325 tab ORAL PRN ×4 (05:31→23:24)
--- NOTE | 2018-09-23 07:04 | NUR ---
HAND-OFF: Report given to SEE Obrien. Patient asleep showing no signs of distress.
--- NOTE | 2018-09-23 07:10 | NUR ---
NURSE NOTES: Received report from SEE Salas. Patient in bed awake in semi morton position showing no signs of acute distress. Respiration even and non labored on room air. No SOB noted. IV line patent and intact. wound dressing on right arm is intact with no signs of bleeding, pain or loss of sensation. Left tunneled permacath is dry and intact. Patient was set up to eat breakfast. Bed in lowest position, locked and side rails x2 up. Will continue plan of care.
--- NOTE | 2018-09-23 07:38 | NUR ---
CASE MANAGEMENT:REVIEW 09/23/18 SI: BLEEDING FROM DIALYSIS SHUNT. HTN URGENCY S/P RT ARM AV SHUNT REVISION 97.4 98 18 147/73 99% ON RA IS: IV ANCEF QD HARRT REGIMEN NORCO PO Q6HRS PRN PROCARDIA XL PO QD HYDRALAZINE PO Q8HRS COREG PO Q12 ASA PO QD IMDUR PO QD COZAAR PO Q12 PROTONIX PO Q12 : TELEMETRY STATUS DCP: HOME PLAN: SCHEDULED FOR HD TODAY
[2018-09-23 08:00] VITALS: BP 150/76
[2018-09-23] MEDS: Imdur 30mg tab ORAL SCH (08:28)
[2018-09-23] MEDS: Ritonavir 100mg tab ORAL SCH (08:29)
[2018-09-23] MEDS: Dolutegravir Sodium 50mg tab ORAL SCH (08:30)
[2018-09-23] MEDS: Carvedilol 12.5mg tab ORAL SCH ×2 (08:30→21:24)
[2018-09-23] MEDS: Docusate 100mg cap ORAL SCH ×3 (08:30→17:22)
[2018-09-23] MEDS: ceFAZolin sod 1 GM in D5W 55 ML IVPB SCH (08:31)
[2018-09-23] MEDS ORDERED: Emtricitabine 200mg tab ORAL SCH (09:00)
[2018-09-23] MEDS: Losartan 50mg tab ORAL SCH ×2 (09:00→21:24)
--- NOTE | 2018-09-23 11:14 | Pulmonology Progress Note ---
Assessment/Plan Problems: (1) COPD (chronic obstructive pulmonary disease) (2) Hypertensive urgency (3) Bleeding from dialysis shunt (4) Elevated troponin (5) ESRD (end stage renal disease) on dialysis (6) HIV disease (7) History of hypertension (8) Cardiomyopathy Assessment/Plan Echo reviewed: EF 45-50%, mild AR, moderate MR, diastolic dysfunction grade II, Mild pulmonary HTN all reviewed, including consults monitor BP, on Clonidin 2 mg, Hydralazine 100, Lisinopril, Minoxidil PRN, Nifedipine XL 30 mg, sBP ranging around 150 titrate fio2 to sat of 92% HD by rn critical care respiratory treatment troponin level unchanged, there is no typical peak and trough might need stress studies dvt prophylaxis. Subjective ROS Limited/Unobtainable: No Interval Events: being dialyzed Constitutional: Reports: no symptoms Allergies: Coded Allergies: No Known Allergies (Unverified , 03/05/12) Objective Last 24 Hour Vital Signs Date Time Temp Pulse Resp B/P (MAP) Pulse Ox O2 Delivery O2 Flow Rate FiO2 09/23/18 09:00 Room Air 09/23/18 08:30 76 150/76 09/23/18 08:28 150/76 09/23/18 08:00 97.5 76 18 150/76 (100) 95 09/23/18 07:40 78 09/23/18 05:30 147/73 09/23/18 05:29 147/73 09/23/18 04:00 66 09/23/18 04:00 97.4 98 18 147/73 (97) 99 09/23/18 00:00 97.1 77 18 137/73 (94) 97 09/23/18 00:00 69 09/22/18 22:11 154/70 09/22/18 22:11 154/70 09/22/18 21:00 Room Air 09/22/18 20:54 92 113/66 09/22/18 20:54 113/66 09/22/18 20:00 77 09/22/18 20:00 97.5 72 18 113/66 (82) 99 09/22/18 17:55 97.8 09/22/18 16:00 68 09/22/18 14:00 107/49 09/22/18 14:00 107/49 09/22/18 11:58 76 09/22/18 11:43 77 141/90 09/22/18 11:43 141/90 09/22/18 11:43 141/90 09/22/18 11:42 77 141/90 09/22/18 11:27 77 18 141/90 (107) 98 Intake and Output 09/22/18 09/23/18 19:00 07:00 Intake Total 200 ml Balance 200 ml IV Total 200 ml Objective General Appearance: cachetic HEENT: normocephalic, atraumatic Respiratory/Chest: chest wall non-tender, lungs clear Cardiovascular: normal peripheral pulses, normal rate Abdomen: normal bowel sounds, no organomegaly Genitourinary: normal external genitalia Extremities: no clubbing, right arm fistula 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 Current Medications Medications (Trade) Dose Ordered Sig/Rosa Route PRN Reason Start Time Stop Time Status Last Admin Dose Admin Acetaminophen (Tylenol) 650 mg Q4H PRN ORAL Mild Pain/Temp > 100.5 09/19/18 09:00 10/19/18 08:59 Acetaminophen/ Hydrocodone Bitart ([place] 5/325) 1 tab Q6H PRN ORAL Severe Pain (Pain Scale 7-10) 09/22/18 11:45 09/29/18 11:44 09/23/18 05:31 Aspirin (ASA) 325 mg DAILY ORAL 09/19/18 09:00 10/19/18 08:59 09/23/18 08:27 Carvedilol (Coreg) 25 mg EVERY 12 HOURS ORAL 09/20/18 21:00 10/20/18 08:59 09/23/18 08:30 Cefazolin Sodium 1 gm/Dextrose 55 ml @ 110 mls/hr DAILY IVPB 09/22/18 13:00 09/29/18 12:59 09/23/18 08:31 Cinacalcet (Sensipar) 90 mg QHS ORAL 09/18/18 21:00 10/18/18 20:59 09/22/18 20:50 Clonidine HCl (Catapres tab) 0.2 mg Q8HR ORAL 09/18/18 22:00 10/18/18 21:59 09/23/18 05:29 Docusate Sodium (Colace) 100 mg TID ORAL 09/18/18 18:00 10/18/18 17:59 09/23/18 08:30 Dolutegravir Sodium (Tivicay) 50 mg DAILY ORAL 09/20/18 09:00 10/20/18 08:59 09/23/18 08:30 Emtricitabine (Emtriva) 200 mg TuFr@0900 ORAL 09/23/18 09:00 10/23/18 08:59 09/23/18 08:30 Folic Acid (Folate) 3 mg DAILY ORAL 09/19/18 09:00 10/19/18 08:59 09/23/18 08:30 Hydralazine HCl (Apresoline) 50 mg Q8HR ORAL 09/21/18 14:00 10/20/18 21:59 09/23/18 05:30 Isosorbide Mononitrate (Imdur) 60 mg DAILY ORAL 09/19/18 09:00 10/19/18 08:59 09/23/18 08:28 Losartan Potassium (Cozaar) 50 mg EVERY 12 HOURS ORAL 09/18/18 21:00 10/18/18 20:59 09/22/18 11:43 Minoxidil (Loniten) 2.5 mg Q4H PRN ORAL bp over 165 syst 09/18/18 16:43 10/18/18 16:42 09/19/18 16:45 Nifedipine (Procardia XL) 30 mg DAILY ORAL 09/22/18 09:00 10/19/18 17:59 09/22/18 11:43 Pantoprazole (Protonix) 40 mg Q12HR ORAL 09/18/18 21:00 10/18/18 20:59 09/23/18 08:31 Pravastatin Sodium (Pravachol) 10 mg BEDTIME ORAL 09/20/18 21:00 10/20/18 20:59 09/22/18 20:50 Ritonavir (Norvir) 100 mg DAILY ORAL 09/20/18 09:00 10/20/18 08:59 09/23/18 08:29 Sevelamer Carbonate (Renvela) 1,600 mg THREE TIMES A DAY ORAL 09/18/18 18:00 10/18/18 17:59 09/23/18 08:30 Tahir Hull MD Sep 23, 2018 11:14
[2018-09-23 11:31] VITALS: BP 160/126
--- NOTE | 2018-09-23 13:05 | NUR ---
NURSE NOTES: Dialysis was completed. 2L was removed. Dressing of PermCath was changed by HD nurse.
--- NOTE | 2018-09-23 13:56 | NUR ---
RD ASSESSMENT & RECOMMENDATIONS SEE CARE ACTIVITY FOR COMPLETE ASSESSMENT DAILY ESTIMATED NEEDS: Needs based on ESRD+HD, HIV/ 56kg 30-35kcal/kg kcals/kg 8466-7860 total kcals 1.2-1.8g g protein/kg 67-100 g total protein 20-22 mL/kg 1626-6239 total fluid mLs NUTRITION DIAGNOSIS: (1) Increased KCAL and protein needs R/T renal dysfunction, catabolic dx as evidenced by pt w/ ESRD on HD, HIV+. (2) Altered nutrition related lab values R/T ESRD as evidenced by elev creat (9.1), elev K (5.2), elev BNP (79906). CURRENT DIET:RENAL PO DIET RECOMMENDATIONS: RENAL + high prot snacks BID ADDITIONAL RECOMMENDATIONS: * Calibrated or standing wt post HD * Monitor lytes (elev K at this time) * Nephrovite 1 tab daily as supplement .
--- NOTE | 2018-09-23 14:01 | 48 Hour Post Anesthesia Eval ---
Post Anesthesia Evaluation Procedure: Dialysis catheter placement, excision of R A-V shunt aneurysm Date of Evaluation: Sep 23, 2018 Time of Evaluation: 14:00 Blood Pressure Systolic: 160 0: 126 Pulse Rate: 71 Respiratory Rate: 20 Temperature (Fahrenheit): 97.3 O2 Sat by Pulse Oximetry: 95 Airway: patent Nausea: No Vomiting: No Pain Intensity: 2 Hydration Status: adequate Cardiopulmonary Status: Stable Mental Status/LOC: patient returned to baseline Follow-up Care/Observations: 0 Post-Anesthesia Complications: 0 Follow-up care needed: N/A Aj Person MD Sep 23, 2018 14:01
[2018-09-23 16:00] VITALS: BP 158/67
--- NOTE | 2018-09-23 16:20 | General Progress Note ---
Assessment/Plan Problem List: (1) Bleeding from dialysis shunt ICD Codes: T82.838A - Hemorrhage due to vascular prosthetic devices, implants and grafts, initial encounter SNOMED: 21043834 (2) ESRD (end stage renal disease) on dialysis ICD Codes: N18.6 - End stage renal disease; Z99.2 - Dependence on renal dialysis SNOMED: 272484731, 836628706, 927912096 (3) Hypertensive urgency ICD Codes: I16.0 - Hypertensive urgency SNOMED: 376719239 (4) Elevated troponin ICD Codes: R74.8 - Abnormal levels of other serum enzymes SNOMED: 177623096, 980029448, 109307519 (5) HIV disease ICD Codes: B20 - Human immunodeficiency virus [HIV] disease SNOMED: 13751978 (6) Cardiomyopathy ICD Codes: I42.9 - Cardiomyopathy, unspecified SNOMED: 59689767 Status: stable Assessment/Plan HD 09/20 next 09/23 Adjustment of BP meds continues Nitrates due shunt revision Saturday am: Revision of avf aneurysm and placement of permacath cardiology eval appreciated Per orders Kayexelate for high K as needed ? DC 09/24 Subjective ROS Limited/Unobtainable: No Constitutional: Reports: malaise Allergies: Coded Allergies: No Known Allergies (Unverified , 03/05/12) Objective Last 24 Hour Vital Signs Date Time Temp Pulse Resp B/P (MAP) Pulse Ox O2 Delivery O2 Flow Rate FiO2 09/23/18 15:12 158/67 09/23/18 15:12 158/67 09/23/18 14:01 71 20 95 09/23/18 11:59 97.3 09/23/18 11:48 70 09/23/18 11:31 97.3 71 20 160/126 (137) 95 09/23/18 09:00 Room Air 09/23/18 08:30 76 150/76 09/23/18 08:28 150/76 09/23/18 08:00 97.5 76 18 150/76 (100) 95 09/23/18 07:40 78 09/23/18 05:30 147/73 09/23/18 05:29 147/73 09/23/18 04:00 66 09/23/18 04:00 97.4 98 18 147/73 (97) 99 09/23/18 00:00 97.1 77 18 137/73 (94) 97 09/23/18 00:00 69 09/22/18 22:11 154/70 09/22/18 22:11 154/70 09/22/18 21:00 Room Air 09/22/18 20:54 92 113/66 09/22/18 20:54 113/66 09/22/18 20:00 77 09/22/18 20:00 97.5 72 18 113/66 (82) 99 Intake and Output 09/22/18 09/23/18 19:00 07:00 Intake Total 200 ml Balance 200 ml IV Total 200 ml Height (Feet): 5 Height (Inches): 7.00 Weight (Pounds): 139 General Appearance: no apparent distress Cardiovascular: normal rate Respiratory/Chest: lungs clear Abdomen: soft Extremities: other - right UE bandaged Objective no change Raymond Jimenez MD Sep 23, 2018 16:20
--- NOTE | 2018-09-23 19:51 | NUR ---
HAND-OFF: Report given to SEE Salas.
[2018-09-23 20:00] VITALS: BP 147/70
[2018-09-23] MEDS: Sensipar 30mg Tab ORAL SCH (21:25)
[2018-09-24] VITALS: BP 156/79
--- NOTE | 2018-09-24 01:45 | Progress Note ---
DATE: 09/23/2018 CARDIOLOGY PROGRESS NOTE SUBJECTIVE: No chest pain. No shortness of breath. Seen on hemodialysis today. OBJECTIVE: VITAL SIGNS: Blood pressure 150/76, pulse 76, and respirations 18. There is a single blood pressure spike of 160/126 noted. Otherwise, good blood pressure range throughout last 24 hours. LUNGS: Clear. CARDIAC: Regular. Normal S1, S2. A 1/6 systolic apical murmur. ABDOMEN: Soft. EXTREMITIES: No edema. Chest wall catheter in place with no bleeding at the site. Right upper extremity AV fistula site has bandage and 2+ edema of the associated upper extremity. IMPRESSION: 1. Chronic ischemic heart disease. 2. Hypertensive urgency, resolved. 3. Acute myocardial ischemia, resolved. 4. End-stage renal disease, on hemodialysis. 5. Status post repair of AV fistula aneurysm and placement of a temporary PermCath. PLAN: 1. Hemodialysis with ultrafiltration. 2. Titration of antihypertensive regimen based on clinical parameters. 3. Avoid tight blood pressure control due to orthostatic risk. Jesus Mcneal M.D. DR: THA JOB#: [id number] CC:
--- NOTE | 2018-09-24 03:30 | Operative Note - Dictated ---
DATE OF OPERATION: 09/22/2018 SURGEON: Uli Hudson M.D. ANESTHESIOLOGIST: Tulio Zaldivar M.D. PREOPERATIVE DIAGNOSES: 1. End-stage renal disease, on hemodialysis, requiring permanent access. 2. 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 3. History of right cephalic vein arch occlusion. 4. History of HIV. 5. Hypertension. 6. Smoking history. POSTOPERATIVE DIAGNOSES: 1. End-stage renal disease, on hemodialysis requiring permanent access. 2. 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 3. History of right cephalic vein arch occlusion. 4. History of HIV. 5. Hypertension. 6. Smoking history. PROCEDURES: 1. Exploration and ligation of right upper arm cephalic vein arteriovenous fistula. 2. Complete resection of right upper arm cephalic vein AV fistula aneurysm en-bloc x2 with overlying skin blister wound. 3. Incision and debridement of right upper arm wound down to the muscle. 4. Ligation of right cephalic vein. 5. Placement of left internal jugular vein tunneled hemodialysis Perma catheter (14.5 [place]ian x 27 cm [employer] with intraoperative ultrasound sonography, fluoroscopy, interpretation, and supervision). ANESTHESIA: Local sedation and general anesthesia. COMPLICATIONS: None. FLUOROSCOPY TIME: 50 seconds. CONTRAST: None. FINDINGS: 1. The left internal jugular vein was widely patent with good placement of Perma catheter with tip in the atriocaval junction with good curvature and good venous flush and that shows Perma catheter is ready for immediate access use. 2. The right cephalic vein AV fistula aneurysm was completely resected en-bloc with overlying skin and blister wound. This was debrided down to the muscle, proximal distally was also ligated. The patient had a strongly palpable pulse. The patient will be scheduled for a new right upper arm AV shunt in about 3 to 4 weeks' time once the edema and swelling have subsided. INDICATION FOR THE PROCEDURE: This is a 73-year-old male who presented for the above-mentioned procedure. Risks and benefits were discussed with the patient and consent was obtained. DESCRIPTION OF PROCEDURE: The patient was brought to the procedure room. After a dose of antibiotics and sedation by the anesthesiologist, the right arm was prepped and draped in the usual sterile manner. The left internal jugular vein was accessed under local anesthesia using a micropuncture technique. Over a 3.5 guidewire, sequential dilation was carried out. sheath was placed. The left chest and left was incised. A 14.5-E[place]ian x27 cm HemoStar Bard was subcutaneously tunneled towards the left brachial artery and it was removed. The catheter was advanced distal to the sheath. The sheath was peeled away. There was good curvature and good venous flush. The PermCath was flushed with heparinized saline solution and secured to skin using 2-0 and 3-0 nylon suture. The left leg wound was closed using a 4-0 Monocryl subcuticular closure. Sterile dressings applied. The patient tolerated the procedure very well. Attention was turned to the right arm. A transverse skin incision was made in the right upper arm. The subcutaneous tissue was divided. The right cephalic vein was ligated above the arterial anastomosis using a 0 silk suture. The attention was turned to the right cephalic vein aneurysm. An elliptical incision was made over the cephalic vein aneurysm with a skin blister wound. This was resected en-bloc down to the muscle and its overlying skin with distal cephalic vein suture. The specimen was sent to pathology for permanent sampling. The hemostasis was achieved. Wound was irrigated down to the muscle and the wound was reapproximated using interrupted 2-0 and 3-0 Vicryl suture. The skin was closed using a skin stapler. Sterile dressings were applied. The patient tolerated the procedure very well and was transferred to recovery hemodynamically stable with a palpable radial pulse. Uli Hudson M.D. DR: NIK JOB#: [id number] CC: Uli Hudson M.D.; Fax#: [phone] Raymond Jimenez M.D.
[2018-09-24 04:00] VITALS: BP 147/76
[2018-09-24] MEDS: HydrALAZINE 50mg tab ORAL SCH ×2 (05:33→13:22)
[2018-09-24] MEDS: cloNIDine 0.2mg Tab ORAL SCH ×2 (05:34→13:22)
[2018-09-24] MEDS: HYDROcodone/Acetamin 5/325 tab ORAL PRN (05:34)
--- NOTE | 2018-09-24 07:52 | NUR ---
HAND-OFF: Report given to SEE Clay.
--- NOTE | 2018-09-24 07:52 | NUR ---
NURSE NOTES: Received patient from SEE Salas in bed. Denies any pain, no s/s of respiratory or cardiac distress. Noted patient has right arm shunt repaired and wrapped and left IJ for dialysis. Patient has LH IV SL, intact and patent. Bed is on lowest level with brakes engaged for safety. Call light and table within reach. Will continue with the plan of care.
[2018-09-24 08:00] VITALS: BP 160/76
[2018-09-24] MEDS: ceFAZolin sod 1 GM in D5W 55 ML IVPB SCH (08:43)
[2018-09-24] MEDS: Docusate 100mg cap ORAL SCH ×2 (08:43→13:22)
[2018-09-24] MEDS: Losartan 50mg tab ORAL SCH (08:44)
[2018-09-24] MEDS: Carvedilol 12.5mg tab ORAL SCH (08:44)
[2018-09-24] MEDS: Imdur 30mg tab ORAL SCH (08:45)
[2018-09-24] MEDS: Dolutegravir Sodium 50mg tab ORAL SCH (08:51)
[2018-09-24] MEDS: Ritonavir 100mg tab ORAL SCH (08:51)
--- NOTE | 2018-09-24 09:00 | General Progress Note ---
Assessment/Plan Problem List: (1) Bleeding from dialysis shunt ICD Codes: T82.838A - Hemorrhage due to vascular prosthetic devices, implants and grafts, initial encounter SNOMED: 43997536 (2) ESRD (end stage renal disease) on dialysis ICD Codes: N18.6 - End stage renal disease; Z99.2 - Dependence on renal dialysis SNOMED: 691918450, 954993470, 391234168 (3) Hypertensive urgency ICD Codes: I16.0 - Hypertensive urgency SNOMED: 717927128 (4) Elevated troponin ICD Codes: R74.8 - Abnormal levels of other serum enzymes SNOMED: 116161211, 922544030, 223954293 (5) HIV disease ICD Codes: B20 - Human immunodeficiency virus [HIV] disease SNOMED: 06866980 (6) Cardiomyopathy ICD Codes: I42.9 - Cardiomyopathy, unspecified SNOMED: 07976825 Status: stable Assessment/Plan HD 09/23 DC today HD OP in am Adjustment of BP meds continues Nitrates due shunt revision Saturday am: Revision of avf aneurysm and placement of permacath cardiology eval appreciated Per orders Kayexelate for high K as needed ? DC 09/24 Subjective ROS Limited/Unobtainable: No Allergies: Coded Allergies: No Known Allergies (Unverified , 03/05/12) Objective Last 24 Hour Vital Signs Date Time Temp Pulse Resp B/P (MAP) Pulse Ox O2 Delivery O2 Flow Rate FiO2 09/24/18 08:45 68 160/76 09/24/18 08:45 160/76 09/24/18 08:44 68 160/76 09/24/18 08:44 160/76 09/24/18 05:34 147/76 09/24/18 05:33 147/76 09/24/18 04:00 67 09/24/18 04:00 97.0 69 18 147/76 (99) 99 09/24/18 00:00 72 09/24/18 00:00 97.5 75 18 156/79 (104) 100 09/23/18 22:39 151/83 09/23/18 22:39 151/83 09/23/18 21:24 76 147/70 09/23/18 21:24 147/70 09/23/18 21:00 Room Air 09/23/18 20:00 97.9 75 18 147/70 (95) 97 09/23/18 20:00 76 09/23/18 17:53 97.9 09/23/18 16:00 97.9 67 18 158/67 (97) 95 09/23/18 15:27 69 09/23/18 15:12 158/67 09/23/18 15:12 158/67 09/23/18 14:01 71 20 95 09/23/18 11:48 70 09/23/18 11:31 97.3 71 20 160/126 (137) 95 09/23/18 09:00 Room Air Intake and Output 09/23/18 09/24/18 19:00 07:00 Intake Total 360 ml Balance 360 ml Intake Oral 360 ml Current Medications Medications (Trade) Dose Ordered Sig/Rosa Route PRN Reason Start Time Stop Time Status Last Admin Dose Admin Acetaminophen (Tylenol) 650 mg Q4H PRN ORAL Mild Pain/Temp > 100.5 09/19/18 09:00 10/19/18 08:59 Acetaminophen/ Hydrocodone Bitart ([place] 5/325) 1 tab Q6H PRN ORAL Severe Pain (Pain Scale 7-10) 09/22/18 11:45 09/29/18 11:44 09/24/18 05:34 Aspirin (ASA) 325 mg DAILY ORAL 09/19/18 09:00 10/19/18 08:59 09/24/18 08:43 Carvedilol (Coreg) 25 mg EVERY 12 HOURS ORAL 09/20/18 21:00 10/20/18 08:59 09/24/18 08:44 Cefazolin Sodium 1 gm/Dextrose 55 ml @ 110 mls/hr DAILY@1999 IVPB 09/24/18 20:00 09/29/18 19:59 Cinacalcet (Sensipar) 90 mg QHS ORAL 09/18/18 21:00 10/18/18 20:59 09/23/18 21:25 Clonidine HCl (Catapres tab) 0.2 mg Q8HR ORAL 09/18/18 22:00 10/18/18 21:59 09/24/18 05:34 Docusate Sodium (Colace) 100 mg TID ORAL 09/18/18 18:00 10/18/18 17:59 09/24/18 08:43 Dolutegravir Sodium (Tivicay) 50 mg DAILY ORAL 09/20/18 09:00 10/20/18 08:59 09/24/18 08:51 Emtricitabine (Emtriva) 200 mg TuFr@0900 ORAL 09/23/18 09:00 10/23/18 08:59 09/23/18 08:30 Folic Acid (Folate) 3 mg DAILY ORAL 09/19/18 09:00 10/19/18 08:59 09/24/18 08:50 Hydralazine HCl (Apresoline) 50 mg Q8HR ORAL 09/21/18 14:00 10/20/18 21:59 09/24/18 05:33 Isosorbide Mononitrate (Imdur) 60 mg DAILY ORAL 09/19/18 09:00 10/19/18 08:59 09/24/18 08:45 Losartan Potassium (Cozaar) 50 mg EVERY 12 HOURS ORAL 09/18/18 21:00 10/18/18 20:59 09/24/18 08:44 Minoxidil (Loniten) 2.5 mg Q4H PRN ORAL bp over 165 syst 09/18/18 16:43 10/18/18 16:42 09/19/18 16:45 Nifedipine (Procardia XL) 30 mg DAILY ORAL 09/22/18 09:00 10/19/18 17:59 09/24/18 08:45 Pantoprazole (Protonix) 40 mg Q12HR ORAL 09/18/18 21:00 10/18/18 20:59 09/24/18 08:45 Pravastatin Sodium (Pravachol) 10 mg BEDTIME ORAL 09/20/18 21:00 10/20/18 20:59 09/23/18 21:24 Ritonavir (Norvir) 100 mg DAILY ORAL 09/20/18 09:00 10/20/18 08:59 09/24/18 08:51 Sevelamer Carbonate (Renvela) 1,600 mg THREE TIMES A DAY ORAL 09/18/18 18:00 10/18/18 17:59 09/24/18 08:46 Height (Feet): 5 Height (Inches): 7.00 Weight (Pounds): 138 General Appearance: no apparent distress Cardiovascular: normal rate Respiratory/Chest: lungs clear Abdomen: soft Objective no change Fouladian,Raymond MD Sep 24, 2018 09:00
[2018-09-24] MEDS ORDERED: ISOSORBIDE MONO30 M1 ORAL (09:11)
[2018-09-24] MEDS ORDERED: ACETAMINOPHEN325 M1 ORAL (09:11)
[2018-09-24] MEDS ORDERED: OMEPRAZOLE40 M1 ORAL (09:11)
[2018-09-24] MEDS ORDERED: PRAVACHOL20 MG ORAL (09:11)
[2018-09-24] MEDS ORDERED: COREG12.5 MG ORAL (09:11)
[2018-09-24] MEDS ORDERED: APRESOLINE50 MG ORAL (09:11)
[2018-09-24] MEDS ORDERED: COLACE100 MG ORAL (09:11)
[2018-09-24] MEDS ORDERED: ASPIRIN325 MG ORAL (09:11)
--- NOTE | 2018-09-24 09:13 | Discharge Instructions ---
Discharge Instructions Discharge Instructions Follow up with: ID / Cardiology and myself ( at dialysis unit) Diet: renal (80g protein, 2GM) Resume Normal Activity?: Yes Special Instructions follow uop with Dr VELIZ for HIV med adjustment FU with Dr Mcneal for Cardiology check Out patient dialysis at [facility], [facility]1983 Myrna Sat For Congestive Heart Failure Reminder Report to your physician any weight gain of 5 pounds or more in one week. Raymond Jimenez MD Sep 24, 2018 09:13
--- NOTE | 2018-09-24 11:28 | Pulmonology Progress Note ---
Assessment/Plan Problems: (1) COPD (chronic obstructive pulmonary disease) (2) Hypertensive urgency (3) Bleeding from dialysis shunt (4) Elevated troponin (5) ESRD (end stage renal disease) on dialysis (6) HIV disease (7) History of hypertension (8) Cardiomyopathy Assessment/Plan doing better Echo reviewed: EF 45-50%, mild AR, moderate MR, diastolic dysfunction grade II, Mild pulmonary HTN all reviewed, including consults monitor BP, on Clonidin 2 mg, Hydralazine 100, Lisinopril, Minoxidil PRN, Nifedipine XL 30 mg, sBP ranging around 150 titrate fio2 to sat of 92% HD by track leader respiratory treatment troponin level unchanged, there is no typical peak and trough might need stress studies dvt prophylaxis. dc home Subjective ROS Limited/Unobtainable: No Constitutional: Reports: no symptoms HEENT: Repors: no symptoms Allergies: Coded Allergies: No Known Allergies (Unverified , 03/05/12) Objective Last 24 Hour Vital Signs Date Time Temp Pulse Resp B/P (MAP) Pulse Ox O2 Delivery O2 Flow Rate FiO2 09/24/18 09:00 Room Air 09/24/18 08:45 68 160/76 09/24/18 08:45 160/76 09/24/18 08:44 68 160/76 09/24/18 08:44 160/76 09/24/18 08:00 81 09/24/18 08:00 98.3 68 18 160/76 (104) 98 09/24/18 05:34 147/76 09/24/18 05:33 147/76 09/24/18 04:00 67 09/24/18 04:00 97.0 69 18 147/76 (99) 99 09/24/18 00:00 72 09/24/18 00:00 97.5 75 18 156/79 (104) 100 09/23/18 22:39 151/83 09/23/18 22:39 151/83 09/23/18 21:24 76 147/70 09/23/18 21:24 147/70 09/23/18 21:00 Room Air 09/23/18 20:00 97.9 75 18 147/70 (95) 97 09/23/18 20:00 76 09/23/18 17:53 97.9 09/23/18 16:00 97.9 67 18 158/67 (97) 95 09/23/18 15:27 69 09/23/18 15:12 158/67 09/23/18 15:12 158/67 09/23/18 14:01 71 20 95 09/23/18 11:48 70 09/23/18 11:31 97.3 71 20 160/126 (137) 95 Intake and Output 09/23/18 09/24/18 19:00 07:00 Intake Total 360 ml Balance 360 ml Intake Oral 360 ml Objective General Appearance: cachetic HEENT: normocephalic, atraumatic Respiratory/Chest: chest wall non-tender, lungs clear Cardiovascular: normal peripheral pulses, normal rate Abdomen: normal bowel sounds, no organomegaly Genitourinary: normal external genitalia Extremities: no clubbing, right arm fistula Neurologic/Psychiatric: environment coordinator II-XII grossly normal Current Medications Medications (Trade) Dose Ordered Sig/Rosa Route PRN Reason Start Time Stop Time Status Last Admin Dose Admin Acetaminophen (Tylenol) 650 mg Q4H PRN ORAL Mild Pain/Temp > 100.5 09/19/18 09:00 10/19/18 08:59 Acetaminophen/ Hydrocodone Bitart (Saxe 5/325) 1 tab Q6H PRN ORAL Severe Pain (Pain Scale 7-10) 09/22/18 11:45 09/29/18 11:44 09/24/18 05:34 Aspirin (ASA) 325 mg DAILY ORAL 09/19/18 09:00 10/19/18 08:59 09/24/18 08:43 Carvedilol (Coreg) 25 mg EVERY 12 HOURS ORAL 09/20/18 21:00 10/20/18 08:59 09/24/18 08:44 Cefazolin Sodium 1 gm/Dextrose 55 ml @ 110 mls/hr DAILY@2000 IVPB 09/24/18 20:00 09/29/18 19:59 Cinacalcet (Sensipar) 90 mg QHS ORAL 09/18/18 21:00 10/18/18 20:59 09/23/18 21:25 Clonidine HCl (Catapres tab) 0.2 mg Q8HR ORAL 09/18/18 22:00 10/18/18 21:59 09/24/18 05:34 Docusate Sodium (Colace) 100 mg TID ORAL 09/18/18 18:00 10/18/18 17:59 09/24/18 08:43 Dolutegravir Sodium (Tivicay) 50 mg DAILY ORAL 09/20/18 09:00 10/20/18 08:59 09/24/18 08:51 Emtricitabine (Emtriva) 200 mg TuFr@0900 ORAL 09/23/18 09:00 10/23/18 08:59 09/23/18 08:30 Folic Acid (Folate) 3 mg DAILY ORAL 09/19/18 09:00 10/19/18 08:59 09/24/18 08:50 Hydralazine HCl (Apresoline) 50 mg Q8HR ORAL 09/21/18 14:00 10/20/18 21:59 09/24/18 05:33 Isosorbide Mononitrate (Imdur) 60 mg DAILY ORAL 09/19/18 09:00 10/19/18 08:59 09/24/18 08:45 Losartan Potassium (Cozaar) 50 mg EVERY 12 HOURS ORAL 09/18/18 21:00 10/18/18 20:59 09/24/18 08:44 Minoxidil (Loniten) 2.5 mg Q4H PRN ORAL bp over 165 syst 09/18/18 16:43 10/18/18 16:42 09/19/18 16:45 Nifedipine (Procardia XL) 30 mg DAILY ORAL 09/22/18 09:00 10/19/18 17:59 09/24/18 08:45 Pantoprazole (Protonix) 40 mg Q12HR ORAL 09/18/18 21:00 10/18/18 20:59 09/24/18 08:45 Pravastatin Sodium (Pravachol) 10 mg BEDTIME ORAL 09/20/18 21:00 10/20/18 20:59 09/23/18 21:24 Ritonavir (Norvir) 100 mg DAILY ORAL 09/20/18 09:00 10/20/18 08:59 09/24/18 08:51 Sevelamer Carbonate (Renvela) 1,600 mg THREE TIMES A DAY ORAL 09/18/18 18:00 10/18/18 17:59 09/24/18 08:46 Tahir Hull MD Sep 24, 2018 11:28
[2018-09-24 12:00] VITALS: BP 139/78
[2018-09-24 13:22] VITALS: BP 139/78
--- NOTE | 2018-09-24 14:00 | NUR ---
NURSE NOTES: Patient is discharged home via Taxi as per Dr. Jimenez's order. gambling monitor removed. IV removed, no s/s of bleeding, infiltration or redness noted. Name band removed and shredded. Patient breathing easily on RA, vital sign stable. Patient was in stable condition. All discharge protocols done, patient's inventory of personal belongings verified and signed by patient and with patient.
[2018-09-24] MEDS ORDERED: ceFAZolin sod 1 GM in D5W 55 ML IVPB SCH (20:00)
--- NOTE | 2018-09-25 01:15 | Progress Note ---
DATE: 09/24/2018 CARDIOLOGY PROGRESS NOTE SUBJECTIVE: The patient has no chest pain or shortness of breath. He is status post hemodialysis with ultrafiltration yesterday. His right upper extremity AV fistula was revised and his arm is swollen. The left jugular dialysis catheter site is in place with no bleeding. OBJECTIVE: VITAL SIGNS: Blood pressure range is from 139/78 today to 160/76 with heart rate in the high 60s. Monitored rhythm sinus with rare atrial ectopics. LUNGS: Clear. CARDIAC: Regular with a fourth heart sound. No new murmur. ABDOMEN: Soft. EXTREMITIES: With no edema. IMPRESSION: 1. Malignant hypertension, now controlled adequately. Further tightening can follow, however, the patient's blood pressure tends to drop on dialysis days and orthostatic risk is high. 2. Acute myocardial ischemia due to malignant hypertension, now resolved clinically. An outpatient myocardial perfusion scan is recommended. 3. End-stage renal disease, on hemodialysis three times a week for volume management. 4. Acute on chronic diastolic congestive heart failure, clinically compensated. 5. Outpatient followup medication regimen reviewed and reconciled. Discussed with the patient in detail his new medication list. Jesus Mcneal M.D. DR: THA JOB#: [id number] CC:
--- NOTE | 2018-09-25 10:33 | Discharge Summary ---
Discharge Summary Discharge Summary _ DATE OF ADMISSION: 09/18/2018 DATE OF DISCHARGE: 09/24/2018 DISCHARGED BY: Dr. Raymond Jimenez CONSULTANTS: Dr. Jesus Hudson BRIEF HOSPITAL COURSE: Patient is a 73-year-old male, with history of HIV and renal failure, on hemodialysis. The patient came in from dialysis unit to the emergency room, brought by paramedics, because of bleeding from the right arm fistula. At the time of arrival, patient had a blood pressure recorded as 190/158. He was treated with IV hydralazine for hypertensive emergency. Dermabond was applied to the bleeding fistula. Bleeding eventually stopped. Blood work showed elevated troponin at 0.072. He was given aspirin, nitrates and metoprolol. He was then admitted to telemetry for evaluation of elevated troponin, hypertensive emergency, and AV fistula malfunction. Blood pressure was monitored. He was given respiratory treatment. He was placed on hydralazine, Imdur, losartan, minoxidil, and nifedipine for blood pressure control. He was given aspirin. He was continued on his antiretrovirals. Vascular surgeon was consulted. Patient had a right cephalic vein shunt progressively aneurysmal and right forearm edema due to cephalic vein arch occlusion. Patient will need revision of the right arm AV shunt, resection of the aneurysm and revision; and a tunneled permacatheter. Cardiac status was monitored. Automotive Sales Representative was consulted. Echocardiogram done showed left ventricular ejection fraction 45% to 50%, mild AR, moderate MR, diastolic dysfunction grade 2, and mild pulmonary hypertension. He was given inpatient hemodialysis until stable for vascular surgical intervention. He was given Kayexalate for hyperkalemia. 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 Patient tolerated the procedure well and was transferred to recovery room hemodynamically stable with a palpable radial pulse. He was advised to have hemodialysis via permacath and to allow 3 more weeks for right arm edema to subside prior to new right arm AV shunt placement. Troponin levels were unchanged. There was no typical peak and trough. Antihypertensives were titrated. Blood pressure was better controlled. Patient was to continue hemodialysis via permacath until edema on right arm resolves for a new right am AV shunt placement. He was cleared for discharge home. Recommended outpatient myocardial perfusion scan. FINAL DIAGNOSES: Malignant hypertension/hypertensive urgency Bleeding from dialysis shunt Acute myocardial ischemia, due to malignant hypertension, resolved clinically End-stage renal disease, on hemodialysis Acute on chronic diastolic congestive heart failure, clinically compensated HIV Cardiomyopathy Status post repair of AV fistula aneurysm and placement of a temporary permacath Hypertensive heart disease DISPOSITION: Patient was discharged home. DISCHARGE MEDICATIONS: Refer to Discharge Medication List. DISCHARGE INSTRUCTIONS: Follow-up in a week. I have been assigned to complete a discharge summary on this account, I was not involved with the patient's management. Cecille Spears NP Sep 25, 2018 10:33
== END 2018-09-24 14:01 | disposition home or self-care (01) | DRG 252 ==
LOC: EDBD 12:10 → EMR 12:40 → EDBEDREQ 12:43 → 2E 13:09 → EDBEDREQ 16:46
DX: T82.838A Hemorrhage due to vascular prosthetic devices, implants and grafts, initial encounter (principal); N18.6 End stage renal disease; I21.4 Non-ST elevation (NSTEMI) myocardial infarction; I50.33 Acute on chronic diastolic (congestive) heart failure; B20 Human immunodeficiency virus [HIV] disease; I13.2 Hypertensive heart and chronic kidney disease with heart failure and with stage 5 chronic kidney disease, or end stage renal disease; I42.9 Cardiomyopathy, unspecified; E44.0 Moderate protein-calorie malnutrition; I16.0 Hypertensive urgency; Z99.2 Dependence on renal dialysis; E87.5 Hyperkalemia; I51.3 Intracardiac thrombosis, not elsewhere classified; F17.200 Nicotine dependence, unspecified, uncomplicated; T82.868A Thrombosis due to vascular prosthetic devices, implants and grafts, initial encounter; T82.898A Other specified complication of vascular prosthetic devices, implants and grafts, initial encounter; I72.9 Aneurysm of unspecified site; Y83.8 Other surgical procedures as the cause of abnormal reaction of the patient, or of later complication, without mention of misadventure at the time of the procedure; J44.9 Chronic obstructive pulmonary disease, unspecified; I27.20 Pulmonary hypertension, unspecified
CPT/HCPCS: 36415; 71045; 76000; 80048; 80053; 80061; 82550; 82553; 82607; 82728; 82962; 82977; 83036; 83540; 83550; 83735; 83880; 84100; 84443; 84484; 85025; 85610; 85730; 86140; 86850; 86900; 86901; 86920; 87081; 93005; 93306; 94003; 94150; 96374; 96375; 99285

== ENCOUNTER 2018-10-27 05:35 | Inpatient (IN) | payer MEDICARE, OTHER ==
[2018-10-27] VITALS (12 sets, daily range): BP systolic 161–184; BP diastolic 74–95
[~2018-10-27] VITALS: Ht 175.3 cm; Wt 59.0 kg
[~2018-10-27 05:35] MED LIST changes: +APRESOLINE50 MG ORAL; +ASPIRIN325 MG ORAL; +EMTRIVA200 MG ORAL; +ISOSORBIDE MONO30 M1 ORAL; +OMEPRAZOLE40 M1 ORAL; +PRAVACHOL20 MG ORAL; +REYATAZ150 MG ORAL; +UNOBMED
[2018-10-27 07:04] LABS: BASOPHILS % (AUTO) 1.6 % (0.0-2.0); EOSINOPHILS % (AUTO) 5.6 % (0.0-3.0); HEMATOCRIT 28.6 % (42.0-52.0); HEMOGLOBIN 9.2 G/DL (14.2-18.0); LYMPHOCYTES % (AUTO) 14.6 % (20.0-45.0); MEAN CORPUSCULAR VOLUME 93 FL (80-99); MONOCYTES % (AUTO) 6.1 % (1.0-10.0); NEUTROPHILS % (AUTO) 72.1 % (45.0-75.0); PLATELET COUNT 207 K/UL (150-450); RED BLOOD COUNT 3.08 M/UL (4.70-6.10); RED CELL DISTRIBUTION WIDTH 16.2 % (11.6-14.8); WHITE BLOOD COUNT 5.5 K/UL (4.8-10.8)
[2018-10-27 07:12] LABS: ANION GAP 11 mmol/L (5-15); BLOOD UREA NITROGEN 44 mg/dL (7-18); CARBON DIOXIDE 27 MMOL/L (21-32); CHLORIDE 104 MMOL/L (98-107); CREATININE 8.8 MG/DL (0.55-1.30); SODIUM 142 MMOL/L (136-145)
[2018-10-27 07:14] LABS: POTASSIUM 6.3 MMOL/L (3.5-5.1)
[2018-10-27] MEDS ORDERED: Heparin 1000 units/ml 1ml Vial ONE (07:16)
[2018-10-27] MEDS ORDERED: Heparin 5000 units/ml inj ONE (07:16)
[2018-10-27] MEDS ORDERED: Neosporin Oint Ud Pkt TOPIC ONE (07:16)
[2018-10-27] MEDS ORDERED: Bacitracin Oint 15gm Tube TOPIC ONE (07:16)
[2018-10-27] MEDS ORDERED: Thrombin 5000 units TOPIC ONE (07:17)
[2018-10-27] MEDS ORDERED: Bupivacaine 0.25% Inj 30ml INJ ONE (07:17)
[2018-10-27] MEDS ORDERED: Bacitracin 50000 Units Vial ONE (07:17)
[2018-10-27] MEDS ORDERED: Gelfoam Size TOPIC ONE (07:17)
[2018-10-27] MEDS ORDERED: NeoSporin Gu Irrig 1ml Amp IRRIG ONE (07:17)
[2018-10-27] MEDS ORDERED: Lidocaine 1% Plain 30 ml INJ ONE (07:17)
[2018-10-27] MEDS ORDERED: NS Irrig 1000ml IRRIG ONE (07:30)
[2018-10-27] MEDS ORDERED: NS Irrig 1000ml ONE (07:30)
--- NOTE | 2018-10-27 07:32 | Pre-Procedure Note/Attestation ---
Pre-Procedure Note/Attestation Complete Prior to Procedure Planned Procedure: right Procedure Narrative: Right arm av shunt revision, basilic vein transposition possible av graft Indications for Procedure Pre-Operative Diagnosis: ESRD need for access HIV Attestation I attest that I discussed the nature of the procedure; its benefits; risks and complications; and alternatives (and the risks and benefits of such alternatives ), prior to the procedure, with the patient (or the patient's legal insurance claim representative). I attest that, if there was a reasonable possibility of needing a blood transfusion, the patient (or the patient's legal insurance claim representative) was given the [facility] standardized written summary, pursuant to the Carson Kristy Blood Safety Act ([place] Health and Safety Code # 1645, as amended). I attest that I re-evaluated the patient just prior to the surgery and that there has been no change in the patient's H&P, except as documented below: Uli Hudson MD October 27, 2018 07:32
[2018-10-27 07:33] LABS: INR 1.1 (0.9-1.1)
[2018-10-27] MEDS ORDERED: Lidocaine 1% MPF 10mg/ml 5ml ONE (07:46)
[2018-10-27] MEDS ORDERED: Propofol 200mg/20ml IV ONE (07:46)
[2018-10-27] MEDS ORDERED: fentaNYL 100 mcg/2 mL IV ONE (07:48)
[2018-10-27] MEDS ORDERED: Insulin Human Regular 100units/ml 3ml ONE (07:54)
[2018-10-27] MEDS ORDERED: Heparin Sod 1000 units/ml 10ml ONE (08:03)
--- NOTE | 2018-10-27 08:25 | Anethesia Preoperative Eval ---
Anesthesia Pre-op PMH/ROS General Date of Evaluation: October 27, 2018 Time of Evaluation: 07:00 ASA Score: ASA 4 Mallampati Score Class I : Soft palate, uvula, fauces, pillars visible Class II: Soft palate, uvula, fauces visible Class III: Soft palate, base of uvula visible Class IV: Only hard plate visible Mallampati Classification: Class II Allergies: Coded Allergies: No Known Allergies (Unverified , 10/27/18) Patient NPO?: Yes Anesthesia Pre-op Phys. Exam Physician Exam Last Vital Signs Date Time Temp Pulse Resp B/P (MAP) Pulse Ox O2 Delivery O2 Flow Rate FiO2 10/27/18 06:46 97.0 72 20 165/93 98 Room Air Airway Exam Mallampati Score: Class II Anesthesia Pre-op A/P Labs Hematology Test 10/27/18 06:38 White Blood Count 5.5 K/UL (4.8-10.8) Red Blood Count 3.08 M/UL (4.70-6.10) L Hemoglobin 9.2 G/DL (14.2-18.0) L Hematocrit 28.6 % (42.0-52.0) L Mean Corpuscular Volume 93 FL (80-99) Mean Corpuscular Hemoglobin 29.9 PG (27.0-31.0) Mean Corpuscular Hemoglobin Concent 32.2 G/DL (32.0-36.0) Red Cell Distribution Width 16.2 % (11.6-14.8) H Platelet Count 207 K/UL (150-450) Mean Platelet Volume 5.2 FL (6.5-10.1) L Neutrophils (%) (Auto) 72.1 % (45.0-75.0) Lymphocytes (%) (Auto) 14.6 % (20.0-45.0) L Monocytes (%) (Auto) 6.1 % (1.0-10.0) Eosinophils (%) (Auto) 5.6 % (0.0-3.0) H Basophils (%) (Auto) 1.6 % (0.0-2.0) Coagulation Test 10/27/18 06:38 Prothrombin Time 12.0 SEC (9.30-11.50) H Prothromb Time International Ratio 1.1 (0.9-1.1) Activated Partial Thromboplast Time 31 SEC (23-33) Chemistry Test 10/27/18 06:38 Sodium Level 142 MMOL/L (136-145) Potassium Level 6.3 MMOL/L (3.5-5.1) *H Chloride Level 104 MMOL/L (98-107) Carbon Dioxide Level 27 MMOL/L (21-32) Anion Gap 11 mmol/L (5-15) Blood Urea Nitrogen 44 mg/dL (7-18) H Creatinine 8.8 MG/DL (0.55-1.30) H Estimat Glomerular Filtration Rate mL/min (>60) Glucose Level 86 MG/DL (74-106) Calcium Level 9.0 MG/DL (8.5-10.1) James Silverman MD October 27, 2018 08:25
[2018-10-27] MEDS ORDERED: fentaNYL 100 mcg/2 mL IV PRN (08:30)
[2018-10-27] MEDS ORDERED: ePHEDrine 50mg/ml Inj ONE (09:13)
--- NOTE | 2018-10-27 09:56 | Immediate Post-Op Evaluation ---
Immediate Post-Op Evalulation Immediate Post-Op Evalulation Procedure: RUE AV fistula Date of Evaluation: October 27, 2018 Time of Evaluation: 09:56 Nausea: No Vomiting: No James Silverman MD October 27, 2018 09:56
[2018-10-27] MEDS ORDERED: Acetaminophen 500mg (ES) tab ORAL PRN (10:00)
--- NOTE | 2018-10-27 10:09 | Operative Note - PDOC ---
Operative Note Operative Note Pre-op Diagnosis: ESRD need for access HIV Procedure: Right arm basilic vein transposition avf Post-op Diagnosis: same as pre-op Surgeon: Uli Hudson MD Anesthesiologist: Herrera Ramirez MD Anesthesia: general Specimen: none Complications: none Condition: stable Fluids: 400cc Estimated Blood Loss: minimal - less than 50cc Drains: none Implant(s) used?: No Uli Hudson MD October 27, 2018 10:09
[2018-10-27 10:56] LABS: ANION GAP 11 mmol/L (5-15); BLOOD UREA NITROGEN 43 mg/dL (7-18); CALCIUM 8.1 MG/DL (8.5-10.1); CARBON DIOXIDE 27 MMOL/L (21-32); CHLORIDE 105 MMOL/L (98-107); CREATININE 8.8 MG/DL (0.55-1.30); SODIUM 143 MMOL/L (136-145)
[2018-10-27 11:01] LABS: POTASSIUM 6.1 MMOL/L (3.5-5.1)
--- NOTE | 2018-10-27 11:39 | NUR ---
NURSE NOTES: Patient arrived to [facility] at 11:20. patient is AAO x 4. patient has dressing on right arm. Patient right AV fistula has positive bruit and thrill. Patient states moderate pain for right arm. Patient has SCDs boots on. Patient bed is in lowest position, 3 side rails up, and call light within reach. Belonging checklist completed and in chart. Will contact Dr. Jimenez for further orders.
[2018-10-27] MEDS ORDERED: Minoxidil 2.5mg tab ORAL PRN (12:00)
--- NOTE | 2018-10-27 12:02 | Consultation ---
Consult Note Consult Note admitted pot op for management of hyperkalemia Assessment/Plan 1) Dialysis access malfunction (2) ESRD (end stage renal disease) on dialysis (3) Hypertensive kidney disease (4) h/o Elevated troponin (5) HIV disease (6) Cardiomyopathy with previously low Ej Fx Plan: Resume BP meds and cardiac meds HD APOLLO Renal diet [id number] Raymond Jimenez MD October 27, 2018 12:02
[2018-10-27] MEDS: Docusate 100mg cap ORAL SCH ×2 (13:00→17:40)
[2018-10-27] MEDS: HydrALAZINE 50mg tab ORAL SCH ×2 (14:00→21:32)
[2018-10-27] MEDS: cloNIDine 0.2mg Tab ORAL SCH ×2 (14:00→21:31)
--- NOTE | 2018-10-27 14:21 | NUR ---
NURSE NOTES: HD started at 2pm. Only collected MRSA specimen. patient refused VRE/CRE specimen collection. Notified charge nurse
--- NOTE | 2018-10-27 15:00 | NUR ---
NURSE NOTES: Right AVF dressing is dry and intact. Positive for thrill and bruit.
[2018-10-27] MEDS: ceFAZolin sod 1 GM in NS 55 ML IVPB SCH (17:41)
[2018-10-27] MEDS: Hydromorphone 0.5mg/0.5ml inj IVP PRN (17:42)
--- NOTE | 2018-10-27 17:45 | NUR ---
NURSE NOTES: Before giving medications, noticed on right AVF has small bleeding. Reinforced with pressure dressing. Called Dr. Hudson's office # . Left call back number. Awaiting call back.
--- NOTE | 2018-10-27 19:45 | NUR ---
HAND-OFF: Report given to SEE Willingham. Endorsed about post op care. patient right arm is getting more edematous. Made second call to vascular surgeon. Addendum: 10/27/18 at 2007 by Micah Duran RN Patient right arm has intact dressing. Has dried blood. Has positive thrill and bruit. patient has positive radial pulse. Patient has sensation in right arm. Right arm is cool to touch. Patient right hand is +2 edema.
--- NOTE | 2018-10-27 20:14 | NUR ---
NURSE NOTES: Received call from . Received orders to elevate the arm above heart level at four pillows. Will enter orders. Notify SEE Moe.
--- NOTE | 2018-10-27 20:15 | NUR ---
NURSE NOTES: Got report from Micah CUI. Pt in stable condition. Denies any pain. No s/s of distress or discomfort noted. Pt resting in bed comfortably. Bed in low and locked position, calll light within reach, bedside table within reach. Continue to monitor.
[2018-10-27] MEDS: Carvedilol 25mg Tab ORAL SCH (21:31)
[2018-10-27] MEDS: Sensipar 30mg Tab ORAL SCH (21:32)
[2018-10-28] VITALS: BP 154/75
[2018-10-28] MEDS: Hydromorphone 0.5mg/0.5ml inj IVP PRN ×5 (00:30→21:21)
--- NOTE | 2018-10-28 00:30 | History and Physical Report ---
DATE OF ADMISSION: 10/27/2018 HISTORY OF PRESENT ILLNESS: The patient is a 73-year-old male, and has been under my care for his dialysis related management for over 20 years. The patient had an elective procedure by Dr. Hudson this morning at [facility]. After the procedure over the right arm which was successful, the patient was found to be hyperkalemia and with high blood pressure. The patient is being admitted for urgent dialysis treatment and blood pressure management. PAST MEDICAL HISTORY: Past history of the patient is significant for end-stage renal disease. Positive for human immunodeficiency virus, history of hypertension, and had hip surgery in the past. MEDICATIONS: Medications that the patient is taking should include Tylenol, aspirin, Coreg, Sensipar, clonidine, Colace, Tivicay, Emtriva, folic acid, hydralazine, Imdur, Cozaar, minoxidil as needed, Procardia XL, Protonix, Pravachol, and Norvir. Also, the patient takes Renvela for high phosphorus. PHYSICAL EXAMINATION: GENERAL: On examination this morning, the blood pressure was 173/95. VITAL SIGNS: The patient had the temperature of 98.3 with a pulse rate of 80 and a respiratory rate of 20. HEENT: Head, normocephalic. Sclerae are not icteric. NECK: Neck veins are engorged. LUNGS: Clear. HEART: Regular with a soft systolic murmur at apex of left sternal border. ABDOMEN: Soft. Bowel sounds present. EXTREMITIES: Warm, edema over the right side. The right arm is dressed post surgery and the patient has a left PermCath in place. LABORATORY DATA: Hemoglobin 9.2. Potassium 6.3 and creatinine 8.8. IMPRESSION: 1. End-stage renal disease with hyperkalemia. 2. Blood pressure, out of control. 3. Human immunodeficiency virus positive. PLAN: In view of the fact that the patient also has cardiomyopathy with compromised ejection fraction proven in the previous echo, we will keep the blood pressure under control and we will arrange for dialysis APOLLO. According to how the patient's condition evolves, we will make the proper changes in our future management. Raymond Jimenez M.D. DR: MALLY JOB#: [id number] CC:
[2018-10-28 04:00] VITALS: BP 134/79
[2018-10-28] MEDS: HydrALAZINE 50mg tab ORAL SCH ×3 (06:00→21:44)
[2018-10-28] MEDS: cloNIDine 0.2mg Tab ORAL SCH ×3 (06:00→21:45)
[2018-10-28 06:31] LABS: BASOPHILS % (AUTO) 0.5 % (0.0-2.0); EOSINOPHILS % (AUTO) 5.8 % (0.0-3.0); HEMATOCRIT 29.3 % (42.0-52.0); HEMOGLOBIN 9.2 G/DL (14.2-18.0); LYMPHOCYTES % (AUTO) 17.1 % (20.0-45.0); MEAN CORPUSCULAR VOLUME 93 FL (80-99); MONOCYTES % (AUTO) 5.9 % (1.0-10.0); NEUTROPHILS % (AUTO) 70.7 % (45.0-75.0); PLATELET COUNT 217 K/UL (150-450); RED BLOOD COUNT 3.14 M/UL (4.70-6.10); WHITE BLOOD COUNT 5.5 K/UL (4.8-10.8)
--- NOTE | 2018-10-28 07:00 | NUR ---
HAND-OFF: Report given to Phyllis CUI. Notified about K:7.0 and Trop 0.084. Endorsed plan of care.
--- NOTE | 2018-10-28 07:00 | NUR ---
NURSE NOTES: I received the patient awake and resting in bed. Patient alert and oriented x4. Patient does not display any signs of distress or SOB. Bed in the lowest position and call light within reach. I will continue to monitor the patient and implement care.
[2018-10-28 07:08] LABS: ALANINE AMINOTRANSFERASE 10 U/L (12-78); ALBUMIN/GLOBULIN RATIO 0.6 (1.0-2.7); ALKALINE PHOSPHATASE 685 U/L (46-116); ANION GAP 9 mmol/L (5-15); BILIRUBIN,TOTAL 0.3 MG/DL (0.2-1.0); BLOOD UREA NITROGEN 38 mg/dL (7-18); CALCIUM 8.3 MG/DL (8.5-10.1); CARBON DIOXIDE 29 MMOL/L (21-32); CHLORIDE 103 MMOL/L (98-107); CHOLESTEROL 183 MG/DL (< 200); CREATININE 8.1 MG/DL (0.55-1.30); FERRITIN 623 NG/ML (8-388); GAMMA GLUTAMYL TRANSPEPTIDASE 40 U/L (5-85); HDL CHOLESTEROL 80 MG/DL (40-60); PHOSPHORUS 3.5 MG/DL (2.5-4.9); SODIUM 140 MMOL/L (136-145); TRIGLYCERIDES 45 MG/DL (30-150)
[2018-10-28 07:19] LABS: ASPARTATE AMINO TRANSFERASE 17 U/L (15-37)
[2018-10-28 08:00] VITALS: BP 131/83
--- NOTE | 2018-10-28 08:17 | 48 Hour Post Anesthesia Eval ---
Post Anesthesia Evaluation Procedure: RUE AV fistula Date of Evaluation: October 28, 2018 Time of Evaluation: 06:17 Blood Pressure Systolic: 134 0: 79 Pulse Rate: 77 Respiratory Rate: 18 Temperature (Fahrenheit): 98.1 O2 Sat by Pulse Oximetry: 100 Airway: patent Nausea: No Vomiting: No Pain Intensity: 2 Hydration Status: adequate Cardiopulmonary Status: Stable Mental Status/LOC: patient returned to baseline Follow-up Care/Observations: 0 Post-Anesthesia Complications: 0 Follow-up care needed: N/A Aj Person MD October 28, 2018 08:17
[2018-10-28] MEDS: Docusate 100mg cap ORAL SCH ×3 (08:51→18:02)
[2018-10-28] MEDS: Carvedilol 25mg Tab ORAL SCH ×2 (08:51→21:08)
[2018-10-28] MEDS: Imdur 30mg tab ORAL SCH (08:52)
[2018-10-28] MEDS: Sodium Polystyrene Sulfonate 15gm Powder ORAL SCH ×2 (10:00→12:19)
--- NOTE | 2018-10-28 10:34 | NUR ---
NURSE NOTES: I called [facility] Nephrology to make them aware of the patient's STAT order for hemodialysis. I talked with the dialysis nurse Madhu and he said that another potassium lab needs to be redrawn. Dr. Jimenez contacted and order obtained for a STAT postassium.
--- NOTE | 2018-10-28 10:46 | NUR ---
RD ASSESSMENT & RECOMMENDATIONS SEE CARE ACTIVITY FOR COMPLETE ASSESSMENT DAILY ESTIMATED NEEDS: Needs based on ESRD HD, HIV, UNDERWEIGHT/ 54kg 30-40kcal/kg kcals/kg [id number] total kcals 1.2-1.8g g protein/kg 65-97 g total protein Fluid per MD, on HD NUTRITION DIAGNOSIS: (1) Increased KCAL and protein needs R/T ESRD, infection, underweight status, as evidenced by pt on HD, HIV+, @74% [place] Body Weight, BMI underweight per guidelines. (2) Altered nutrition related lab values R/T ESRD as evidenced by elev creat (8.1), elev K (7.0), elev BNP (81094). CURRENT DIET: RENAL PO DIET RECOMMENDATIONS: RENAL + high prot snacks BID ADDITIONAL RECOMMENDATIONS: * OBTAIN A CALIBRATED BED SCALE WT OR STANDING PREFERRED * High protein snacks in b/w meals * Nephrovite 1 tab daily as supplement * Weekly weights for eval
--- NOTE | 2018-10-28 10:54 | NUR ---
NURSE NOTES: I talked with patient about HIV medications. He said there is not anyone that is able to bring the medications to the hospital.
--- NOTE | 2018-10-28 11:40 | General Progress Note ---
Assessment/Plan Problem List: (1) ESRF (end stage renal failure) ICD Codes: N18.6 - End stage renal disease SNOMED: 63891323 (2) Hyperkalemia ICD Codes: E87.5 - Hyperkalemia SNOMED: 65930373 (3) HIV disease ICD Codes: B20 - Human immunodeficiency virus [HIV] disease SNOMED: 32017964 (4) Cardiomyopathy ICD Codes: I42.9 - Cardiomyopathy, unspecified SNOMED: 47362432 (5) Hypertensive kidney disease ICD Codes: I12.9 - Hypertensive chronic kidney disease with stage 1 through stage 4 chronic kidney disease, or unspecified chronic kidney disease SNOMED: 40395542 (6) Problem with dialysis access ICD Codes: T82.898A - Other specified complication of vascular prosthetic devices, implants and grafts, initial encounter SNOMED: 634836329 Status: stable Assessment/Plan: HD 10/27 and again today for high K Keep bp in check EPO monitor BP and Renal parameters Subjective ROS Limited/Unobtainable: No Allergies: Coded Allergies: No Known Allergies (Unverified , 10/27/18) Objective Last 24 Hour Vital Signs Date Time Temp Pulse Resp B/P (MAP) Pulse Ox O2 Delivery O2 Flow Rate FiO2 10/28/18 08:52 77 134/79 10/28/18 08:52 134/79 10/28/18 08:51 77 134/79 10/28/18 08:17 77 18 100 10/28/18 08:00 98.4 79 18 131/83 (99) 99 10/28/18 07:51 94 10/28/18 06:00 134/79 10/28/18 06:00 134/79 10/28/18 04:00 98.1 77 18 134/79 (97) 100 10/28/18 04:00 76 10/28/18 02:58 Nasal Cannula 2.0 10/28/18 02:50 Nasal Cannula 2.0 10/28/18 01:53 97.9 10/28/18 00:00 72 10/28/18 00:00 98.2 74 17 154/75 (101) 100 10/27/18 21:32 161/87 10/27/18 21:31 161/87 10/27/18 21:31 97 161/87 10/27/18 20:00 77 10/27/18 20:00 97.9 97 17 161/87 (111) 99 10/27/18 16:38 80 179/93 10/27/18 16:13 77 10/27/18 16:00 98.3 80 24 179/93 (121) 99 10/27/18 14:00 184/74 10/27/18 13:17 82 10/27/18 11:55 97.3 94 24 184/74 (110) 98 10/27/18 11:54 Nasal Cannula 2.0 10/27/18 11:39 97.3 Intake and Output 10/27/18 10/28/18 19:00 07:00 Intake Total 100 ml Balance 100 ml Intake IV Total 100 ml # Bowel Movements 2 Current Medications Medications (Trade) Dose Ordered Sig/Rosa Route PRN Reason Start Time Stop Time Status Last Admin Dose Admin Acetaminophen (Tylenol) 500 mg Q4H PRN ORAL Mild Pain/Temp > 100.5 10/27/18 10:00 11/26/18 09:59 Aspirin (ASA) 325 mg DAILY ORAL 10/28/18 11:45 11/27/18 11:44 UNV Carvedilol (Coreg) 25 mg EVERY 12 HOURS ORAL 10/27/18 21:00 11/26/18 20:59 10/28/18 08:51 Cefazolin Sodium 1 gm/Sodium Chloride 55 ml @ 110 mls/hr Q24H IVPB 10/27/18 18:00 10/28/18 18:29 10/27/18 17:41 Cinacalcet (Sensipar) 90 mg QHS ORAL 10/27/18 21:00 11/26/18 20:59 10/27/18 21:32 Clonidine HCl (Catapres tab) 0.2 mg Q8HR ORAL 10/27/18 14:00 11/26/18 13:59 10/28/18 06:00 Docusate Sodium (Colace) 100 mg TID ORAL 10/27/18 13:00 11/26/18 12:59 10/28/18 08:51 Dolutegravir Sodium (Tivicay) 50 mg DAILY ORAL 10/28/18 09:00 11/27/18 08:59 UNV Emtricitabine (Emtriva) 200 mg TWICE A WEEK ORAL 10/30/18 09:00 11/29/18 08:59 UNV Epoetin Kian (Epoetin Kian(ESRD on dialysis)) 10,000 unit -SAT SUBQ 10/29/18 21:00 11/28/18 20:59 UNV Folic Acid (Folate) 3 mg DAILY ORAL 10/28/18 09:00 11/27/18 08:59 10/28/18 08:51 Hydralazine HCl (Apresoline) 50 mg Q8HR ORAL 10/27/18 14:00 11/26/18 13:59 10/28/18 06:00 Hydromorphone HCl (Dilaudid) 0.5 mg Q3H PRN IVP pain 4-10 10/28/18 09:15 11/03/18 17:14 Isosorbide Mononitrate (Imdur) 60 mg DAILY ORAL 10/28/18 09:00 11/27/18 08:59 10/28/18 08:52 Minoxidil (Loniten) 2.5 mg Q4H PRN ORAL bp over 165 syst 10/27/18 12:00 11/26/18 11:59 Nifedipine (Procardia XL) 60 mg BID ORAL 10/28/18 09:00 11/27/18 08:59 10/28/18 08:52 Pantoprazole (Protonix) 40 mg EVERY 12 HOURS ORAL 10/27/18 21:00 11/26/18 20:59 10/28/18 08:51 Pravastatin Sodium (Pravachol) 10 mg BEDTIME ORAL 10/27/18 21:00 11/26/18 20:59 10/27/18 21:32 Ritonavir (Norvir) 100 mg DAILY ORAL 10/28/18 09:00 11/27/18 08:59 UNV Sevelamer Carbonate (Renvela) 1,600 mg THREE TIMES A DAY ORAL 10/27/18 13:00 11/26/18 12:59 10/28/18 08:52 Laboratory Tests 10/28/18 04:55: White Blood Count 5.5, Red Blood Count 3.14L, Hemoglobin 9.2L, Hematocrit 29.3L , Mean Corpuscular Volume 93, Mean Corpuscular Hemoglobin 29.3, Mean Corpuscular Hemoglobin Concent 31.4L, Red Cell Distribution Width 16.0H, Platelet Count 217, Mean Platelet Volume 5.5L, Neutrophils (%) (Auto) 70.7, Lymphocytes (%) (Auto) 17.1L, Monocytes (%) (Auto) 5.9, Eosinophils (%) (Auto) 5.8H, Basophils (%) (Auto) 0.5, Sodium Level 140, Potassium Level 7.0*H, Chloride Level 103, Carbon Dioxide Level 29, Anion Gap 9, Blood Urea Nitrogen 38H, Creatinine 8.1H, Estimat Glomerular Filtration Rate , Glucose Level 80, Hemoglobin A1c 5.1, Uric Acid 4.4, Calcium Level 8.3L, Phosphorus Level 3.5, Magnesium Level 2.3, Ferritin 623H, Total Bilirubin 0.3, Gamma Glutamyl Transpeptidase 40, Aspartate Amino Transf (AST/SGOT) 17, Alanine Aminotransferase (ALT/SGPT) 10L, Alkaline Phosphatase 685H, Troponin I 0.084H, C -Reactive Protein, Quantitative 5.2H, Pro-B-Type Natriuretic Peptide [id number], Total Protein 8.4H, Albumin 3.0L, Globulin 5.4, Albumin/Globulin Ratio 0.6L, Triglycerides Level 45, Cholesterol Level 183, LDL Cholesterol 91, HDL Cholesterol 80H, Cholesterol/HDL Ratio 2.3L, Vitamin B12 Level 687, Folate 9.7, Thyroid Stimulating Hormone (TSH) 0.802, Cortisol AM Sample [Pending] 10/28/18 11:15: Potassium Level 6.2*H Height (Feet): 5 Height (Inches): 9.00 Weight (Pounds): 120 General Appearance: no apparent distress Cardiovascular: normal rate Respiratory/Chest: decreased breath sounds Abdomen: soft Extremities: other - right arm dressed Raymond Jimenez MD October 28, 2018 11:40
[2018-10-28 12:06] LABS: % IRON SATURATION 15 % (15-50); IRON 24 ug/dL (50-175); TOTAL IRON BINDING CAPACITY 156 ug/dL (250-450)
[2018-10-28] MEDS ORDERED: Sodium Polystyrene Sulfonate 15gm Powder ORAL ONE (14:30)
[2018-10-28 16:00] VITALS: BP 153/86
[2018-10-28] MEDS: ceFAZolin sod 1 GM in NS 55 ML IVPB SCH (17:19)
--- NOTE | 2018-10-28 19:10 | NUR ---
HAND-OFF: Report given to Papito Ballard RN.
--- NOTE | 2018-10-28 19:11 | NUR ---
NURSE NOTES: Got report from Phyllis CUI. Pt in stable condition. Denies any pain. No s/s of distress or discomfort noted. Pt resting in bed comfortably. Bed in low and locked position, call light within reach, bedside table within reach. Continue to monitor.
[2018-10-28 20:00] VITALS: BP 168/68
[2018-10-28] MEDS: Sensipar 30mg Tab ORAL SCH (21:08)
[2018-10-29] VITALS (7 sets, daily range): BP systolic 137–160; BP diastolic 72–85
[2018-10-29] MEDS: HydrALAZINE 50mg tab ORAL SCH ×3 (05:33→21:44)
[2018-10-29] MEDS: cloNIDine 0.2mg Tab ORAL SCH ×3 (05:33→21:44)
--- NOTE | 2018-10-29 07:00 | NUR ---
HAND-OFF: Report given to Phyllis CUI. Endorsed plan of care.
--- NOTE | 2018-10-29 07:05 | NUR ---
NURSE NOTES: I received the patient awake and resting in bed. Patient alert and oriented x4. Bed in the lowest position and call light within reach. Patient does not display any signs of distress or SOB. I will continue to monitor the patient and implement care.
--- NOTE | 2018-10-29 07:40 | NUR ---
NURSE NOTES: Received report from Phyllis CUI. AOX4. Pt in bed with son at the bedside. C/o pain in right arm 12/31. Will give the pain meds as ordered. No SOB noted. Blood oozing from Right arm dressing noted. Made Dr. Jimenez aware. Per Dr. Jimenez oozing from dressing can be expected but if continuous bloody oozing noted then call the surgeon. Vital signs in stable. No bed in lowest position and locked. IV left hand with 20G SL patent and asymptomatic.
[2018-10-29] MEDS: Hydromorphone 0.5mg/0.5ml inj IVP PRN ×2 (08:21→20:17)
[2018-10-29] MEDS: Carvedilol 25mg Tab ORAL SCH ×2 (08:22→20:22)
[2018-10-29] MEDS: Imdur 30mg tab ORAL SCH (08:23)
[2018-10-29] MEDS: Docusate 100mg cap ORAL SCH ×3 (08:25→17:31)
[2018-10-29 09:10] LABS: BASOPHILS % (AUTO) 0.5 % (0.0-2.0); EOSINOPHILS % (AUTO) 10.2 % (0.0-3.0); HEMATOCRIT 25.2 % (42.0-52.0); LYMPHOCYTES % (AUTO) 14.9 % (20.0-45.0); MEAN CORPUSCULAR VOLUME 93 FL (80-99); MONOCYTES % (AUTO) 6.1 % (1.0-10.0); NEUTROPHILS % (AUTO) 68.4 % (45.0-75.0); PLATELET COUNT 168 K/UL (150-450); RED BLOOD COUNT 2.72 M/UL (4.70-6.10); RED CELL DISTRIBUTION WIDTH 16.2 % (11.6-14.8); WHITE BLOOD COUNT 5.8 K/UL (4.8-10.8)
[2018-10-29 09:14] LABS: ANION GAP 10 mmol/L (5-15); BLOOD UREA NITROGEN 46 mg/dL (7-18); CALCIUM 8.1 MG/DL (8.5-10.1); CARBON DIOXIDE 28 MMOL/L (21-32); CHLORIDE 100 MMOL/L (98-107); CREATININE 7.9 MG/DL (0.55-1.30); POTASSIUM 5.5 MMOL/L (3.5-5.1); SODIUM 137 MMOL/L (136-145)
[2018-10-29 09:18] LABS: ALANINE AMINOTRANSFERASE 6 U/L (12-78); ALBUMIN 2.7 G/DL (3.4-5.0); ALBUMIN/GLOBULIN RATIO 0.6 (1.0-2.7); ALKALINE PHOSPHATASE 605 U/L (46-116); ASPARTATE AMINO TRANSFERASE 13 U/L (15-37); BILIRUBIN,TOTAL 0.2 MG/DL (0.2-1.0); PHOSPHORUS 3.2 MG/DL (2.5-4.9)
--- NOTE | 2018-10-29 10:19 | General Progress Note ---
Assessment/Plan Problem List: (1) ESRF (end stage renal failure) ICD Codes: N18.6 - End stage renal disease SNOMED: 92454562 (2) Hyperkalemia ICD Codes: E87.5 - Hyperkalemia SNOMED: 62197430 (3) HIV disease ICD Codes: B20 - Human immunodeficiency virus [HIV] disease SNOMED: 17512856 (4) Cardiomyopathy ICD Codes: I42.9 - Cardiomyopathy, unspecified SNOMED: 63156187 (5) Hypertensive kidney disease ICD Codes: I12.9 - Hypertensive chronic kidney disease with stage 1 through stage 4 chronic kidney disease, or unspecified chronic kidney disease SNOMED: 80551118 (6) Problem with dialysis access ICD Codes: T82.898A - Other specified complication of vascular prosthetic devices, implants and grafts, initial encounter SNOMED: 215814574 Status: stable Assessment/Plan: hold ASA, oozing blood fromright arm HD 10/27 and again 10/28 , next 10/30 Kayexelate today Keep bp in check EPO monitor BP and Renal parameters Subjective ROS Limited/Unobtainable: No Constitutional: Reports: malaise Allergies: Coded Allergies: No Known Allergies (Unverified , 10/27/18) Objective Last 24 Hour Vital Signs Date Time Temp Pulse Resp B/P (MAP) Pulse Ox O2 Delivery O2 Flow Rate FiO2 10/29/18 10:10 2.0 10/29/18 09:00 Nasal Cannula 2.0 10/29/18 08:26 81 146/77 10/29/18 08:23 146/77 10/29/18 08:22 81 146/77 10/29/18 08:00 98.0 81 22 146/77 (100) 100 10/29/18 05:33 137/72 10/29/18 05:33 137/72 10/29/18 04:20 98.0 76 18 137/72 (93) 95 10/29/18 04:08 72 10/29/18 00:07 98.4 84 20 152/81 (104) 96 10/29/18 00:00 79 10/28/18 21:57 97.1 10/28/18 21:45 168/68 10/28/18 21:44 168/68 10/28/18 21:08 82 168/68 10/28/18 20:00 82 10/28/18 20:00 96.7 82 18 168/68 (101) 97 10/28/18 18:05 85 171/70 10/28/18 16:00 97.1 81 19 153/86 (108) 97 10/28/18 15:13 77 10/28/18 14:00 134/79 10/28/18 14:00 134/79 10/28/18 12:46 81 Intake and Output 10/28/18 10/29/18 18:59 06:59 Intake Total 480 ml 200 ml Output Total 1000 ml 0 ml Balance -520 ml 200 ml Intake Oral 480 ml Other 200 ml Output Urine Total 0 ml Hemodialysis UF 1000 ml Current Medications Medications (Trade) Dose Ordered Sig/Rosa Route PRN Reason Start Time Stop Time Status Last Admin Dose Admin Acetaminophen (Tylenol) 500 mg Q4H PRN ORAL Mild Pain/Temp > 100.5 10/27/18 10:00 11/26/18 09:59 Carvedilol (Coreg) 25 mg EVERY 12 HOURS ORAL 10/27/18 21:00 11/26/18 20:59 10/29/18 08:22 Cinacalcet (Sensipar) 90 mg QHS ORAL 10/27/18 21:00 11/26/18 20:59 10/28/18 21:08 Clonidine HCl (Catapres tab) 0.2 mg Q8HR ORAL 10/27/18 14:00 11/26/18 13:59 10/29/18 05:33 Docusate Sodium (Colace) 100 mg TID ORAL 10/27/18 13:00 11/26/18 12:59 10/29/18 08:25 Dolutegravir Sodium (Tivicay) 50 mg DAILY ORAL 10/28/18 09:00 11/27/18 08:59 UNV Emtricitabine (Emtriva) 200 mg TWICE A WEEK ORAL 10/30/18 09:00 11/29/18 08:59 UNV Epoetin Kian (Epoetin Kian(ESRD on dialysis)) 10,000 unit SAT-SAT-SAT SUBQ 10/29/18 21:00 11/28/18 20:59 Folic Acid (Folate) 3 mg DAILY ORAL 10/28/18 09:00 11/27/18 08:59 10/29/18 08:25 Hydralazine HCl (Apresoline) 50 mg Q8HR ORAL 10/27/18 14:00 11/26/18 13:59 10/29/18 05:33 Hydromorphone HCl (Dilaudid) 0.5 mg Q3H PRN IVP pain 4-10 10/28/18 09:15 11/03/18 17:14 10/29/18 08:21 Isosorbide Mononitrate (Imdur) 60 mg DAILY ORAL 10/28/18 09:00 11/27/18 08:59 10/29/18 08:23 Minoxidil (Loniten) 2.5 mg Q4H PRN ORAL bp over 165 syst 10/27/18 12:00 11/26/18 11:59 Nifedipine (Procardia XL) 60 mg BID ORAL 10/28/18 09:00 11/27/18 08:59 10/29/18 08:26 Pantoprazole (Protonix) 40 mg EVERY 12 HOURS ORAL 10/27/18 21:00 11/26/18 20:59 10/29/18 08:25 Pravastatin Sodium (Pravachol) 10 mg BEDTIME ORAL 10/27/18 21:00 11/26/18 20:59 10/28/18 21:08 Ritonavir (Norvir) 100 mg DAILY ORAL 10/28/18 09:00 11/27/18 08:59 UNV Sevelamer Carbonate (Renvela) 1,600 mg THREE TIMES A DAY ORAL 10/27/18 13:00 11/26/18 12:59 10/29/18 08:22 Sodium Polystyrene Sulfonate (Kayexalate) 30 gm ONCE ONCE ORAL 10/29/18 10:30 10/29/18 10:31 UNV Laboratory Tests 10/28/18 11:15: Potassium Level 6.2*H 10/29/18 08:25: Potassium Level 5.5H, White Blood Count 5.8, Red Blood Count 2.72L, Hemoglobin 8.0L, Hematocrit 25.2L, Mean Corpuscular Volume 93, Mean Corpuscular Hemoglobin 29.3, Mean Corpuscular Hemoglobin Concent 31.5L, Red Cell Distribution Width 16.2H, Platelet Count 168, Mean Platelet Volume 5.2L, Neutrophils (%) (Auto) 68.4, Lymphocytes (%) (Auto) 14.9L, Monocytes (%) (Auto) 6.1, Eosinophils (%) ( Auto) 10.2H, Basophils (%) (Auto) 0.5, Sodium Level 137, Chloride Level 100, Carbon Dioxide Level 28, Anion Gap 10, Blood Urea Nitrogen 46H, Creatinine 7.9H , Estimat Glomerular Filtration Rate , Glucose Level 155H, Calcium Level 8.1L, Phosphorus Level 3.2, Total Bilirubin 0.2, Aspartate Amino Transf (AST/SGOT) 13L , Alanine Aminotransferase (ALT/SGPT) 6L, Alkaline Phosphatase 605H, Total Protein 7.6, Albumin 2.7L, Globulin 4.9, Albumin/Globulin Ratio 0.6L Height (Feet): 5 Height (Inches): 9.00 Weight (Pounds): 65 Cardiovascular: normal rate Respiratory/Chest: lungs clear Abdomen: soft Extremities: other - oozing right arm Raymond Jimenez MD October 29, 2018 10:19
[2018-10-29] MEDS ORDERED: Miralax 17gm pkt ORAL ONE (10:30)
[2018-10-29] MEDS ORDERED: Sodium Polystyrene Sulfonate 15gm Powder ORAL ONE (11:15)
--- NOTE | 2018-10-29 11:53 | NUR ---
CASE MANAGEMENT:REVIEW 10/27/18 SI: ESRD WITH NEED FOR ACCESS 97.0 72 20 165/93 98% ON RA H/H-9.2/28.6 K+6.3 BUN+44 CR+8.8 IS: TO SURGERY: RT ARM BASILIC VEIN TRANSPOSITION AVF : TO TELEMETRY POST PROCEDURE 10/29/18 SI: ESRF. HYPERKALEMIA. HIV 98.0 81 22 146/77 100% ON 2L/NC K+5.5 BUN+46 CR+7.9 IS: HAART REGIMEN EPOETIN SQ MWF IV DILAUDID Q3HRS PRN FOLATE PO QD IMDUR PO QD PROCARDIA XL PO BID COREG PO Q12 HYDRALAZINE PO Q8HRS : TELEMETRY STATUS PLAN: HD 10/27 AND 10/28 SCHEDULED FOR HD 10/30 HOLD ASA D/T OOZING BLOOD FROM RT ARM
[2018-10-29] MEDS ORDERED: Tubing IV Secondary IV ONE (13:28)
[2018-10-29] MEDS ORDERED: NS 275ml ONE (13:28)
--- NOTE | 2018-10-29 16:29 | Physician Query ---
--------- THIS DOCUMENT IS A PERMANENT PART OF THE MEDICAL RECORD --------- PLEASE COMPLETE DOCUMENT BEFORE SIGNING Dear Dr. Raymond Schmid Date: 10/29/2018 Business Developer/CDS Name: Chante Hinkle Exercise your independent professional judgment when responding to the query. Questions asked do not imply a particular answer is desired or expected. We greatly appreciate your clarification on this issue. CLINICAL DOCUMENTATION STATES: 72 yo male with ESRD and HIV disease admitted with dialysis access malfunctions s/p RUE AVF RD note: ncreased KCAL and protein needs R/T ESRD, infection, underweight status , as evidenced by pt on HD, HIV+, @74% [place] Body Weight, BMI underweight per guidelines. BMI 17.6 Labs: Albumin 2.7, A/G ratio: 0.6 Treatment: renal diet, nephrovite Please respond to the following question: Is there a diagnosis specific to these symptoms or values? If so please state below. PHYSICIAN RESPONSE: [] Mild Protein Calorie Malnutrition [] Moderate Protein Calorie Malnutrition [] Severe Protein Calorie Malnutrition [] Other: [] Unknown Condition Present on Admission: [] Yes [] No []Clinically Undeterminable Please also document in your Progress Notes and/or Discharge Summary and indicate if the condition was present on admission. Signature Date MTDD
[2018-10-29] MEDS: Dolutegravir Sodium 50mg tab ORAL SCH (17:31)
[2018-10-29] MEDS: Emtricitabine 200mg tab ORAL SCH (17:31)
[2018-10-29] MEDS: Ritonavir 100mg tab ORAL SCH (17:31)
--- NOTE | 2018-10-29 17:50 | NUR ---
NURSE NOTES: Dr. Hudson call ed for blood oozing from right arm dressing and Hbg result of 8.0 today. 1 X ABD pad saturating with blood. Astrid @Dr. Hudson answered the phone call and she states "i will page the doctor now" Left RN's name and call back number. Pt denied dizziness and pain.
--- NOTE | 2018-10-29 19:30 | NUR ---
NURSE NOTES: Received patient from Min RN. Patient in bed, alert, awake and oriented x 3. Patient upset about his new AV fistula bleeding. MD aware. Changed dressing. Odalis intact. Applied pressure, 4x4, kerlex, covered with flaco wrap.
--- NOTE | 2018-10-29 19:53 | NUR ---
HAND-OFF: Report given to Myesha CUI. Pt remains stable.
--- NOTE | 2018-10-29 20:15 | NUR ---
NURSE NOTES: Patient c/o severe pain on right arm, dilauded 0.5 mg iv administered, see MAR.
--- NOTE | 2018-10-29 20:20 | NUR ---
NURSE NOTES: Received call from Madhu title checker, from [facility] regarding confirmation of patient's scheduled hemodialysis procedure in AM, 10/30/18.
[2018-10-29] MEDS: Sensipar 30mg Tab ORAL SCH (20:23)
[2018-10-29] MEDS: Epoetin Alfa(ESRD on dialysis)10,000 unit/ml vial SUBQ SCH (20:25)
--- NOTE | 2018-10-29 21:00 | Operative Note - Dictated ---
DATE OF OPERATION: 10/27/2018 SURGEON: Uli Hudson M.D. PREOPERATIVE DIAGNOSES: 1. End-stage renal failure, on hemodialysis requiring permanent access. 2. History of aneurysmal AV shunt, status post ligation. 3. History of HIV, hypertension, smoking history, COPD, pulmonary edema. POSTOPERATIVE DIAGNOSES: 1. End-stage renal failure, on hemodialysis requiring permanent access. 2. History of aneurysmal AV shunt, status post ligation. 3. History of HIV, hypertension, smoking history, COPD, pulmonary edema. PROCEDURES: 1. Placement of right upper arm basilic vein transposition arteriovenous fistula. 2. Exploration and dilatation of right upper arm basilic vein. ANESTHESIA: Local general. COMPLICATIONS: None. FINDINGS: 1. Suitable right upper arm basilic vein measured about 4 mm in size with good venous flush. 2. Right brachial artery was soft with minimal plaque. Basilic vein was transposed. A new anastomosis was created. The patient had palpable thrill and radial pulse. The patient will require 6 to 8 weeks of time prior to AV shunt maturation and access use. INDICATION FOR THE PROCEDURE: This is a 73-year-old male, who presented for the above-mentioned procedure. Risks and benefits were discussed with the patient and consent was obtained. DESCRIPTION OF PROCEDURE: The patient was brought to the procedure room. After a dose of antibiotics and sedation by the anesthesiologist, right arm was prepped and draped in the usual sterile manner. The right medial upper arm incision was made. The subcutaneous tissue was divided. The basilic vein was sharply dissected. All the branches were divided between 2-0 and 3-0 silk sutures. The basilic vein was flushed with heparinized saline solution and coronary dilator was carried out up to 4 without difficulty. The vein was marked anteriorly to avoid twisting. The right upper arm subcutaneous tunnel was created. The tunnel was dilated using red Brandt catheter. The vein was brought through the tunnel with careful attention not to twist the vein. The right brachial artery was sharply dissected. Proximal and distal double loop control was obtained. Arteriotomy less than half a centimeter was carried out. The right brachial artery was flushed with heparinized saline solution. End of the basilic veins and right brachial arteriotomy was performed using a running 7-0 Prolene suture. Forward and backward flush was given. Anastomosis was completed. Flow was restored with a strongly palpable thrill and radial pulse. Anastomosis remained hemostatic. The wounds were irrigated with antibiotic irrigation and closed using interrupted 2-0 Vicryl suture. The skin was closed using a skin stapler. Sterile dressing was applied. The patient tolerated the procedure very well, was transferred to recovery hemodynamically stable. Uli Hudson M.D. DR: Nakul JOB#: [id number] CC: Uli Hudson M.D.; Fax#: [phone] Raymond Jimenez M.D.
--- NOTE | 2018-10-29 21:00 | NUR ---
NURSE NOTES: Patient verbalized that pain is better. Informed patient that next dose of pain med is 2320.
--- NOTE | 2018-10-29 23:20 | NUR ---
NURSE NOTES: Patient in bed, asleep. Asked if patient needed pain meds, patient stated he is okay for now. Instructed patient to call when he needs another dose of pain medication.
[2018-10-30] VITALS (8 sets, daily range): BP systolic 123–161; BP diastolic 70–82
[2018-10-30] MEDS: Hydromorphone 0.5mg/0.5ml inj IVP PRN (04:03)
[2018-10-30] MEDS: cloNIDine 0.2mg Tab ORAL SCH ×3 (05:55→23:19)
[2018-10-30] MEDS: HydrALAZINE 50mg tab ORAL SCH ×3 (06:05→23:19)
--- NOTE | 2018-10-30 07:00 | NUR ---
NURSE NOTES: received patient report from mulu tom. patient is on bed awake, eating breakfast. not in acute distress. SR with 1st degree AVB on the monitor. will follow plan of care.
--- NOTE | 2018-10-30 07:38 | NUR ---
HAND-OFF: Report given to SEE Alcantara. Patient is awake eating breakfast. In stable condition.
[2018-10-30] MEDS: Docusate 100mg cap ORAL SCH ×3 (09:00→17:05)
[2018-10-30] MEDS: Imdur 30mg tab ORAL SCH (09:00)
[2018-10-30] MEDS: Carvedilol 25mg Tab ORAL SCH ×2 (09:00→20:33)
--- NOTE | 2018-10-30 09:19 | General Progress Note ---
Assessment/Plan Problem List: (1) ESRF (end stage renal failure) ICD Codes: N18.6 - End stage renal disease SNOMED: 30967060 (2) Hyperkalemia ICD Codes: E87.5 - Hyperkalemia SNOMED: 84678413 (3) HIV disease ICD Codes: B20 - Human immunodeficiency virus [HIV] disease SNOMED: 74331892 (4) Cardiomyopathy ICD Codes: I42.9 - Cardiomyopathy, unspecified SNOMED: 93769976 (5) Hypertensive kidney disease ICD Codes: I12.9 - Hypertensive chronic kidney disease with stage 1 through stage 4 chronic kidney disease, or unspecified chronic kidney disease SNOMED: 52613721 (6) Problem with dialysis access ICD Codes: T82.898A - Other specified complication of vascular prosthetic devices, implants and grafts, initial encounter SNOMED: 819959030 (7) Anemia in chronic kidney disease (CKD) ICD Codes: N18.9 - Chronic kidney disease, unspecified; D63.1 - Anemia in chronic kidney disease SNOMED: 314794815 Status: stable Assessment/Plan: hold ASA, oozing blood from right arm transfuse one unit PRBCs HD 10/27 and again 10/28 , next 10/30 Kayexelate as needed Keep bp in check EPO monitor BP and Renal parameters Subjective ROS Limited/Unobtainable: No Constitutional: Reports: malaise Allergies: Coded Allergies: No Known Allergies (Unverified , 10/27/18) Objective Last 24 Hour Vital Signs Date Time Temp Pulse Resp B/P (MAP) Pulse Ox O2 Delivery O2 Flow Rate FiO2 10/30/18 06:06 79 140/77 (98) 10/30/18 06:05 140/77 10/30/18 05:55 152/82 10/30/18 04:33 98.4 10/30/18 04:00 98.2 83 18 152/82 (105) 96 10/30/18 03:59 81 10/30/18 00:00 83 10/30/18 00:00 98.4 84 18 161/81 (107) 96 10/29/18 21:46 80 150/85 (106) 10/29/18 21:44 150/85 10/29/18 21:44 150/85 10/29/18 21:00 Room Air 10/29/18 20:22 83 160/79 5/8/19 20:00 84 10/29/18 20:00 98.8 83 18 160/79 (106) 95 10/29/18 17:31 79 139/79 10/29/18 16:00 69 10/29/18 16:00 98.2 79 21 139/79 (99) 98 10/29/18 14:10 132/74 10/29/18 14:10 132/74 10/29/18 12:00 74 10/29/18 12:00 98.0 77 21 144/80 (101) 100 10/29/18 10:10 2.0 Intake and Output 10/29/18 10/30/18 19:00 07:00 Intake Total 780 ml 240 ml Output Total 1000 ml Balance -220 ml 240 ml Intake Oral 480 ml 240 ml IV Total 100 ml Other 200 ml Output Urine Total 0 ml Hemodialysis UF 1000 ml # Bowel Movements 2 Height (Feet): 5 Height (Inches): 9.00 Weight (Pounds): 65 General Appearance: no apparent distress Neck: limited range of motion Cardiovascular: tachycardia Respiratory/Chest: decreased breath sounds Abdomen: distended Extremities: other - right arm dressed Objective no change Raymond Jimenez MD October 30, 2018 09:19
[2018-10-30] MEDS: Dolutegravir Sodium 50mg tab ORAL SCH (11:04)
[2018-10-30] MEDS: Ritonavir 100mg tab ORAL SCH (11:05)
--- NOTE | 2018-10-30 11:58 | Cardiology Report ---
APPROVED REPORT EKG Measurement Heart [id number] Sinus rhythm with marked sinus arrhythmia with 1st degree AV block Left ventricular hypertrophy with repolarization abnormality Abnormal ECG
--- NOTE | 2018-10-30 19:30 | NUR ---
HAND-OFF: Report given to [].
--- NOTE | 2018-10-30 19:30 | NUR ---
HAND-OFF: Report given to rebekah tom.
--- NOTE | 2018-10-30 19:57 | NUR ---
NURSE NOTES: Recvd pt. Pt is awake AOX4. on room air with no sign of sob or resp distress. Pt has right arm wrapped, c/d/i. Dressing to be changed QS and prn. Arm is elevated on 3 pillows. Pt had HD today with 1 L removed. Pt ambulates with assist, advised pt to call for assistance, pt verbalized understanding. Bed in lowest position, bed is locked with 2 rails up, will continue with plan of care.
[2018-10-30] MEDS: Sensipar 30mg Tab ORAL SCH (20:32)
--- NOTE | 2018-10-30 22:57 | NUR ---
NURSE NOTES: pt was found with bleeding arm, open space between keyona found to be actively be bleeding. dressing was changed. Paged Dr Hudson to notify of excess bleeding, per pt since saturday. awaiting call back
--- NOTE | 2018-10-30 23:02 | NUR ---
NURSE NOTES: Recvd call back from Dr Hudson, he ordered to change dressing prn. he states it will ooze after HD. Pt recvd HD today. He ordered: no heparin with dialysis and CBC in the morning
[2018-10-31] MEDS: Hydromorphone 0.5mg/0.5ml inj IVP PRN ×3 (03:53→16:37)
[2018-10-31 04:00] VITALS: BP 144/72
[2018-10-31] MEDS: cloNIDine 0.2mg Tab ORAL SCH ×3 (06:25→22:46)
[2018-10-31] MEDS: HydrALAZINE 50mg tab ORAL SCH ×4 (06:25→22:45)
[2018-10-31 06:37] LABS: BASOPHILS % (AUTO) 0.6 % (0.0-2.0); EOSINOPHILS % (AUTO) 8.4 % (0.0-3.0); HEMATOCRIT 26.1 % (42.0-52.0); HEMOGLOBIN 8.4 G/DL (14.2-18.0); LYMPHOCYTES % (AUTO) 14.4 % (20.0-45.0); MEAN CORPUSCULAR VOLUME 92 FL (80-99); NEUTROPHILS % (AUTO) 70.7 % (45.0-75.0); PLATELET COUNT 163 K/UL (150-450); RED BLOOD COUNT 2.85 M/UL (4.70-6.10); WHITE BLOOD COUNT 7.5 K/UL (4.8-10.8)
[2018-10-31 06:49] LABS: ALBUMIN 2.8 G/DL (3.4-5.0); ALBUMIN/GLOBULIN RATIO 0.6 (1.0-2.7); ALKALINE PHOSPHATASE 645 U/L (46-116); ANION GAP 10 mmol/L (5-15); ASPARTATE AMINO TRANSFERASE 16 U/L (15-37); BILIRUBIN,TOTAL 0.3 MG/DL (0.2-1.0); BLOOD UREA NITROGEN 57 mg/dL (7-18); CALCIUM 8.3 MG/DL (8.5-10.1); CARBON DIOXIDE 26 MMOL/L (21-32); CHLORIDE 100 MMOL/L (98-107); CREATININE 9.2 MG/DL (0.55-1.30); PHOSPHORUS 3.1 MG/DL (2.5-4.9); POTASSIUM 4.8 MMOL/L (3.5-5.1); SODIUM 136 MMOL/L (136-145)
[2018-10-31 06:58] LABS: ALANINE AMINOTRANSFERASE 6 U/L (12-78)
--- NOTE | 2018-10-31 07:10 | NUR ---
NURSE NOTES: Pt is awake AAOX4. Patient is breathing even and unlabored on room air with no sign of resp distress. Pt has right arm wrapped, c/d/i. Dressing to be changed QS and prn. Arm is elevated on 3 pillows. Noted bleeding on wrap. Was endorsed to contine dressing changes and vascular surgeon is aware of bleeding overnight and yesterday. Pt ambulates with assist, advised pt to call for assistance, pt verbalized understanding. Bed in lowest position. bed is locked with 2 rails up. will continue with plan of care.
[2018-10-31 08:00] VITALS: BP 150/77
--- NOTE | 2018-10-31 08:34 | NUR ---
NURSE NOTES: Called <[facility] [phone]>. Spoke to Carmella. Scheduled for 11/01/18.
[2018-10-31] MEDS: Carvedilol 25mg Tab ORAL SCH ×2 (09:29→21:21)
[2018-10-31] MEDS: Imdur 30mg tab ORAL SCH (09:29)
[2018-10-31] MEDS: Docusate 100mg cap ORAL SCH ×3 (09:29→17:45)
[2018-10-31] MEDS: Ritonavir 100mg tab ORAL SCH (09:32)
[2018-10-31] MEDS: Emtricitabine 200mg tab ORAL SCH (09:33)
[2018-10-31] MEDS: Dolutegravir Sodium 50mg tab ORAL SCH (09:37)
--- NOTE | 2018-10-31 11:35 | NUR ---
NURSE NOTES: Dr. Guzmán saw patient. Reinforced dressings. States bleeding is normal to drain. Included pressure dressing, 2 kelix, and 2 flaco wraps from shoulder to hand. Elevated with four pillows. Dr. Guzmán educated patient to put pressure on pillows also. States if patient is discharge to see him in two weeks with [facility] home health support. Will be endorse to next shift.
[2018-10-31 12:00] VITALS: BP 116/60
--- NOTE | 2018-10-31 12:24 | General Progress Note ---
Assessment/Plan Problem List: (1) ESRF (end stage renal failure) ICD Codes: N18.6 - End stage renal disease SNOMED: 99011943 (2) Hyperkalemia ICD Codes: E87.5 - Hyperkalemia SNOMED: 38164747 (3) HIV disease ICD Codes: B20 - Human immunodeficiency virus [HIV] disease SNOMED: 34097504 (4) Cardiomyopathy ICD Codes: I42.9 - Cardiomyopathy, unspecified SNOMED: 68374594 (5) Hypertensive kidney disease ICD Codes: I12.9 - Hypertensive chronic kidney disease with stage 1 through stage 4 chronic kidney disease, or unspecified chronic kidney disease SNOMED: 69726820 (6) Problem with dialysis access ICD Codes: T82.898A - Other specified complication of vascular prosthetic devices, implants and grafts, initial encounter SNOMED: 803079452 (7) Anemia in chronic kidney disease (CKD) ICD Codes: N18.9 - Chronic kidney disease, unspecified; D63.1 - Anemia in chronic kidney disease SNOMED: 043716151 Status: stable Assessment/Plan: hold ASA, oozing blood from right arm Dr Hudson to check transfuse one unit PRBCs HD next 11/01 Kayexelate as needed Keep bp in check EPO monitor BP and Renal parameters Subjective ROS Limited/Unobtainable: No Constitutional: Reports: other - oozing right arm site Allergies: Coded Allergies: No Known Allergies (Unverified , 10/27/18) Objective Last 24 Hour Vital Signs Date Time Temp Pulse Resp B/P (MAP) Pulse Ox O2 Delivery O2 Flow Rate FiO2 10/31/18 10:03 97.7 10/31/18 09:29 83 150/77 10/31/18 09:29 150/77 10/31/18 09:29 83 150/77 10/31/18 09:00 Room Air 10/31/18 08:00 97.7 83 24 150/77 (101) 99 10/31/18 07:36 87 10/31/18 06:25 144/72 10/31/18 06:25 144/72 10/31/18 04:00 82 10/31/18 04:00 98.4 81 20 144/72 (96) 94 10/31/18 00:00 77 10/30/18 23:42 99.0 82 20 151/78 (102) 96 10/30/18 23:19 151/78 10/30/18 23:19 151/78 10/30/18 20:33 86 157/81 10/30/18 20:13 Room Air 10/30/18 20:00 98.4 86 20 157/81 (106) 96 10/30/18 20:00 95 10/30/18 17:05 83 153/82 10/30/18 16:00 83 10/30/18 16:00 98.8 83 21 153/82 (105) 97 10/30/18 13:38 150/82 Intake and Output 10/30/18 10/31/18 19:00 07:00 Intake Total 60 ml Output Total 1500 ml Balance -1500 ml 60 ml Intake Oral 60 ml Hemodialysis UF 1500 ml # Bowel Movements 1 1 Laboratory Tests 10/31/18 05:35: White Blood Count 7.5, Red Blood Count 2.85L, Hemoglobin 8.4L, Hematocrit 26.1L , Mean Corpuscular Volume 92, Mean Corpuscular Hemoglobin 29.4, Mean Corpuscular Hemoglobin Concent 32.1, Red Cell Distribution Width 15.0H, Platelet Count 163, Mean Platelet Volume 5.9L, Neutrophils (%) (Auto) 70.7, Lymphocytes (%) (Auto) 14.4L, Monocytes (%) (Auto) 6.0, Eosinophils (%) (Auto) 8.4H, Basophils (%) (Auto) 0.6, Sodium Level 136, Potassium Level 4.8, Chloride Level 100, Carbon Dioxide Level 26, Anion Gap 10, Blood Urea Nitrogen 57H, Creatinine 9.2H, Estimat Glomerular Filtration Rate , Glucose Level 85, Calcium Level 8.3L, Phosphorus Level 3.1, Magnesium Level 2.2, Total Bilirubin 0.3, Aspartate Amino Transf (AST/SGOT) 16, Alanine Aminotransferase (ALT/SGPT) 6L, Alkaline Phosphatase 645H, Troponin I 0.055, Total Protein 7.8, Albumin 2.8L, Globulin 5.0, Albumin/Globulin Ratio 0.6L Height (Feet): 5 Height (Inches): 9.00 Weight (Pounds): 132 General Appearance: no apparent distress Cardiovascular: normal rate Respiratory/Chest: lungs clear Abdomen: soft Extremities: other - blood OOZ right arm Objective no change Raymond Jimenez MD October 31, 2018 12:24
--- NOTE | 2018-10-31 12:42 | NUR ---
CASE MANAGEMENT:REVIEW 10/31/18 SI: ESRF. HYPERKALEMIA. HIV S/P PLACEMENT OF RUE AVF H/H-8.4/26.1 BUN+57 CR+9.2 IS: HAART REGIMEN EPOETIN SQ MWF IV DILAUDID Q3HRS PRN FOLATE PO QD IMDUR PO QD PROCARDIA XL PO BID COREG PO Q12 HYDRALAZINE PO Q8HRS : TELEMETRY STATUS PLAN: NEXT DIALYSIS 11/01/18
--- NOTE | 2018-10-31 14:30 | NUR ---
NURSE NOTES: Right arm dressing is intact and no bleeding noted.
[2018-10-31 16:00] VITALS: BP 152/75
--- NOTE | 2018-10-31 17:14 | NUR ---
NURSE NOTES: Right arm dressing is intact and no bleeding noted.
--- NOTE | 2018-10-31 19:30 | NUR ---
NURSE NOTES: Received report from SEE Obrien. Pt is awake and resting in bed. In no acute distress. IV line intact and patent. Right upper arm AV shunt site clean and dry. No bleeding noted at this time. Kept elevated on pillows. Bed in lowest position, call light within reach. Will continue plan of care.
[2018-10-31 20:00] VITALS: BP 127/65
[2018-10-31] MEDS: Sensipar 30mg Tab ORAL SCH (21:21)
[2018-10-31] MEDS: Epoetin Alfa(ESRD on dialysis)10,000 unit/ml vial SUBQ SCH (21:22)
[2018-11-01] VITALS: BP 126/57
[2018-11-01 04:00] VITALS: BP 111/61
[2018-11-01] MEDS: Hydromorphone 0.5mg/0.5ml inj IVP PRN ×3 (04:38→19:31)
[2018-11-01] MEDS: cloNIDine 0.2mg Tab ORAL SCH ×3 (06:00→21:39)
--- NOTE | 2018-11-01 07:25 | NUR ---
HAND-OFF: Report given to SEE Kumar and SEE Ramos.
--- NOTE | 2018-11-01 07:53 | NUR ---
NURSE NOTES: Pt in bed in low position, HOB in fowlers position, pt is able to walk to the restroom with steady gait, pt makes needs known, pt denies pain, IV site LT hand 18g intact and asymptomatic, pt has breakfast at bedside, no s/s of distress or sob noted.
[2018-11-01] MEDS: Carvedilol 25mg Tab ORAL SCH ×2 (09:30→20:36)
[2018-11-01] MEDS: Imdur 30mg tab ORAL SCH (09:30)
[2018-11-01] MEDS: Ritonavir 100mg tab ORAL SCH (09:31)
[2018-11-01] MEDS: Dolutegravir Sodium 50mg tab ORAL SCH (09:31)
[2018-11-01] MEDS: Docusate 100mg cap ORAL SCH ×3 (09:32→17:30)
--- NOTE | 2018-11-01 11:35 | General Progress Note ---
Assessment/Plan Problem List: (1) ESRF (end stage renal failure) ICD Codes: N18.6 - End stage renal disease SNOMED: 59606381 (2) Hyperkalemia ICD Codes: E87.5 - Hyperkalemia SNOMED: 98814143 (3) HIV disease ICD Codes: B20 - Human immunodeficiency virus [HIV] disease SNOMED: 34387511 (4) Cardiomyopathy ICD Codes: I42.9 - Cardiomyopathy, unspecified SNOMED: 98045192 (5) Hypertensive kidney disease ICD Codes: I12.9 - Hypertensive chronic kidney disease with stage 1 through stage 4 chronic kidney disease, or unspecified chronic kidney disease SNOMED: 89358484 (6) Problem with dialysis access ICD Codes: T82.898A - Other specified complication of vascular prosthetic devices, implants and grafts, initial encounter SNOMED: 458305199 (7) Anemia in chronic kidney disease (CKD) ICD Codes: N18.9 - Chronic kidney disease, unspecified; D63.1 - Anemia in chronic kidney disease SNOMED: 338123792 Status: stable Assessment/Plan: hold ASA, oozing blood from right arm Dr Hudson checked and right arm under tight dressing transfuse one unit PRBCs HD next 11/01 Kayexelate as needed Keep bp in check EPO monitor BP and Renal parameters ? DC in am Subjective ROS Limited/Unobtainable: No Constitutional: Reports: malaise Allergies: Coded Allergies: No Known Allergies (Unverified , 10/27/18) Objective Last 24 Hour Vital Signs Date Time Temp Pulse Resp B/P (MAP) Pulse Ox O2 Delivery O2 Flow Rate FiO2 11/01/18 09:30 84 142/67 11/01/18 09:30 142/67 11/01/18 09:30 84 142/67 11/01/18 08:34 Room Air 11/01/18 06:00 123/61 11/01/18 04:00 98.6 81 18 111/61 (78) 99 11/01/18 04:00 81 11/01/18 00:00 75 11/01/18 00:00 97.6 75 18 126/57 (80) 96 10/31/18 22:46 141/75 10/31/18 22:45 141/75 10/31/18 22:44 141/75 10/31/18 21:21 86 129/66 10/31/18 21:00 Room Air 10/31/18 20:00 82 10/31/18 20:00 98.6 82 20 127/65 (85) 94 10/31/18 17:45 80 152/75 10/31/18 17:07 97.3 10/31/18 16:00 99.0 80 22 152/75 (100) 98 10/31/18 15:20 72 10/31/18 13:06 116/60 10/31/18 13:03 116/60 10/31/18 12:00 97.3 81 23 116/60 (78) 99 Intake and Output 10/31/18 11/01/18 19:00 07:00 Intake Total 520 ml 240 ml Balance 520 ml 240 ml Intake Oral 520 ml 240 ml # Bowel Movements 1 2 Height (Feet): 5 Height (Inches): 9.00 Weight (Pounds): 132 General Appearance: no apparent distress Cardiovascular: normal rate Respiratory/Chest: lungs clear Abdomen: soft Objective no change Raymond Jimenez MD November 01, 2018 11:35
[2018-11-01 12:10] VITALS: BP 144/65
[2018-11-01] MEDS: HydrALAZINE 50mg tab ORAL SCH ×3 (15:30→21:40)
[2018-11-01 16:00] VITALS: BP 131/70
--- NOTE | 2018-11-01 18:45 | NUR ---
NURSE NOTES: Pt asked for pain medication once today, currently receiving HD to get 2 L out... Addendum: 11/01/18 at 1856 by GIULIANO SILVA RN Only One Liter our during HD, finished at 1900
--- NOTE | 2018-11-01 19:15 | NUR ---
HAND-OFF: Report given to Selvin Correia.
[2018-11-01 20:00] VITALS: BP 172/80
[2018-11-01] MEDS: Sensipar 30mg Tab ORAL SCH (20:36)
[2018-11-01 22:20] VITALS: BP 156/81
[2018-11-02] VITALS (8 sets, daily range): BP systolic 127–168; BP diastolic 68–87
[2018-11-02] MEDS: HydrALAZINE 50mg tab ORAL SCH (06:14)
[2018-11-02] MEDS: cloNIDine 0.2mg Tab ORAL SCH ×3 (06:14→22:05)
[2018-11-02 06:20] LABS: BASOPHILS % (AUTO) 0.7 % (0.0-2.0); EOSINOPHILS % (AUTO) 6.5 % (0.0-3.0); HEMOGLOBIN 8.2 G/DL (14.2-18.0); MEAN CORPUSCULAR VOLUME 91 FL (80-99); MONOCYTES % (AUTO) 8.6 % (1.0-10.0); NEUTROPHILS % (AUTO) 69.3 % (45.0-75.0); PLATELET COUNT 177 K/UL (150-450); RED BLOOD COUNT 2.74 M/UL (4.70-6.10); RED CELL DISTRIBUTION WIDTH 15.5 % (11.6-14.8); WHITE BLOOD COUNT 6.3 K/UL (4.8-10.8)
[2018-11-02 06:37] LABS: ALANINE AMINOTRANSFERASE < 6 U/L (12-78); ALBUMIN 2.6 G/DL (3.4-5.0); ALBUMIN/GLOBULIN RATIO 0.5 (1.0-2.7); ALKALINE PHOSPHATASE 626 U/L (46-116); ANION GAP 8 mmol/L (5-15); ASPARTATE AMINO TRANSFERASE 25 U/L (15-37); BILIRUBIN,TOTAL 0.3 MG/DL (0.2-1.0); BLOOD UREA NITROGEN 47 mg/dL (7-18); CALCIUM 8.3 MG/DL (8.5-10.1); CARBON DIOXIDE 30 MMOL/L (21-32); CHLORIDE 99 MMOL/L (98-107); CREATININE 8.3 MG/DL (0.55-1.30); PHOSPHORUS 3.5 MG/DL (2.5-4.9); SODIUM 137 MMOL/L (136-145)
--- NOTE | 2018-11-02 07:05 | NUR ---
HAND-OFF: Report given to SEE Ramos.
--- NOTE | 2018-11-02 07:10 | NUR ---
NURSE NOTES: Received report from SEE Montalvo. The patient is sleeping on the bed without acute distress or shortness of breath. The patient's bed is in the lowest position, call light in reach, and fall precaution reinforced. No s/s of oozing of blood on right arm at this time. Will continue plan of care.
[2018-11-02] MEDS: Docusate 100mg cap ORAL SCH ×3 (08:56→17:48)
[2018-11-02] MEDS: Carvedilol 25mg Tab ORAL SCH ×2 (08:56→20:43)
[2018-11-02] MEDS: Imdur 30mg tab ORAL SCH (08:57)
[2018-11-02] MEDS: Ritonavir 100mg tab ORAL SCH (08:58)
[2018-11-02] MEDS: Dolutegravir Sodium 50mg tab ORAL SCH (08:59)
--- NOTE | 2018-11-02 10:40 | NUR ---
CASE MANAGEMENT:REVIEW 11/02/2018 SI: ESRF. HYPERKALEMIA. HIV S/P PLACEMENT OF RUE AVF T 99.6 HR 85 RR 20 B/P 168/86 SATS 97% ON RA BUN 47 CR 8.3 CA 8.3 ALT <6 ALP 626 IS: HAART REGIMEN EPOETIN SUBQ MWF IV DILAUDID Q3HRS PRN FOLATE PO QD IMDUR PO QD PROCARDIA XL PO BID COREG PO Q12H HYDRALAZINE PO Q8HRS : TELEMETRY STATUS PLAN: VENOUS DUPLEX
--- NOTE | 2018-11-02 11:05 | General Progress Note ---
Assessment/Plan Problem List: (1) ESRF (end stage renal failure) ICD Codes: N18.6 - End stage renal disease SNOMED: 10529237 (2) Hyperkalemia ICD Codes: E87.5 - Hyperkalemia SNOMED: 58136408 (3) HIV disease ICD Codes: B20 - Human immunodeficiency virus [HIV] disease SNOMED: 12424658 (4) Cardiomyopathy ICD Codes: I42.9 - Cardiomyopathy, unspecified SNOMED: 77261814 (5) Hypertensive kidney disease ICD Codes: I12.9 - Hypertensive chronic kidney disease with stage 1 through stage 4 chronic kidney disease, or unspecified chronic kidney disease SNOMED: 14742607 (6) Problem with dialysis access ICD Codes: T82.898A - Other specified complication of vascular prosthetic devices, implants and grafts, initial encounter SNOMED: 405163657 (7) Anemia in chronic kidney disease (CKD) ICD Codes: N18.9 - Chronic kidney disease, unspecified; D63.1 - Anemia in chronic kidney disease SNOMED: 583922432 Status: stable Assessment/Plan: up dose hydralazine hold ASA, oozing blood from right arm Dr Hudson checked and right arm under tight dressing transfuse one unit PRBCs HD next 11/01 Kayexelate as needed Keep bp in check EPO monitor BP and Renal parameters ? DC in 11/03 Subjective ROS Limited/Unobtainable: No Constitutional: Reports: malaise Allergies: Coded Allergies: No Known Allergies (Unverified , 10/27/18) Objective Last 24 Hour Vital Signs Date Time Temp Pulse Resp B/P (MAP) Pulse Ox O2 Delivery O2 Flow Rate FiO2 11/02/18 09:00 Room Air 11/02/18 08:58 85 168/86 11/02/18 08:57 168/86 11/02/18 08:56 85 168/86 11/02/18 08:00 99.6 85 20 168/86 (113) 97 11/02/18 06:14 160/81 11/02/18 06:14 160/81 11/02/18 04:00 77 11/02/18 04:00 98.1 81 20 155/72 (99) 98 11/02/18 00:00 99.0 81 20 159/87 (111) 98 11/02/18 00:00 81 11/01/18 22:20 88 156/81 (106) 11/01/18 21:40 178/90 11/01/18 21:39 178/90 11/01/18 21:00 Room Air 11/01/18 20:36 92 171/88 11/01/18 20:00 91 11/01/18 20:00 99.0 91 20 172/80 (110) 99 11/01/18 17:31 81 131/70 11/01/18 16:00 97.7 81 18 131/70 (90) 96 11/01/18 15:30 144/65 11/01/18 15:30 144/65 11/01/18 15:18 85 11/01/18 12:10 98.5 83 18 144/65 (91) 97 11/01/18 12:08 98.6 11/01/18 11:56 83 Intake and Output 11/01/18 11/02/18 19:00 07:00 Intake Total 300 ml Balance 300 ml Intake Oral 300 ml # Bowel Movements 1 Laboratory Tests 11/02/18 05:05: White Blood Count 6.3, Red Blood Count 2.74L, Hemoglobin 8.2L, Hematocrit 25.0L , Mean Corpuscular Volume 91, Mean Corpuscular Hemoglobin 29.8, Mean Corpuscular Hemoglobin Concent 32.7, Red Cell Distribution Width 15.5H, Platelet Count 177, Mean Platelet Volume 5.9L, Neutrophils (%) (Auto) 69.3, Lymphocytes (%) (Auto) 15.0L, Monocytes (%) (Auto) 8.6, Eosinophils (%) (Auto) 6.5H, Basophils (%) (Auto) 0.7, Sodium Level 137, Potassium Level 4.0, Chloride Level 99, Carbon Dioxide Level 30, Anion Gap 8, Blood Urea Nitrogen 47H, Creatinine 8.3H, Estimat Glomerular Filtration Rate , Glucose Level 84, Calcium Level 8.3L, Phosphorus Level 3.5, Magnesium Level 2.1, Total Bilirubin 0.3, Aspartate Amino Transf (AST/SGOT) 25, Alanine Aminotransferase (ALT/SGPT) < 6L, Alkaline Phosphatase 626H, Total Protein 7.6, Albumin 2.6L, Globulin 5.0, Albumin/Globulin Ratio 0.5L Height (Feet): 5 Height (Inches): 9.00 Weight (Pounds): 129 General Appearance: no apparent distress Cardiovascular: normal rate Respiratory/Chest: lungs clear Abdomen: soft Objective no change Raymond Jimenez MD November 02, 2018 11:05
[2018-11-02] MEDS: Hydromorphone 0.5mg/0.5ml inj IVP PRN ×2 (12:36→22:09)
[2018-11-02] MEDS: HydrALAZINE 25mg tab ORAL SCH ×2 (14:00→22:05)
--- NOTE | 2018-11-02 19:46 | NUR ---
HAND-OFF: Report given to SEE White. The patient is stable without acute distress or shortness of breath. The patient's bed in the lowest position, call light in reach, and fall precaution reinforced. Endorsed plan of care.
--- NOTE | 2018-11-02 19:50 | NUR ---
NURSE NOTES: Received pt. and report from SEE Ramos. Observe pt. resting in bed and watching television. Pt. is A/Ox4. shirt cleaner is in placed, IV site intact, asymptomatic, and patent. Bed is in the lowest position, locked, and alarmed. No signs/symptoms of acute distress noted at this time. Will continue plan of care.
[2018-11-02] MEDS: Sensipar 30mg Tab ORAL SCH (20:44)
[2018-11-03] VITALS: BP 132/60
[2018-11-03 04:00] VITALS: BP 124/64
[2018-11-03 04:15] VITALS: BP 124/64
[2018-11-03] MEDS: HydrALAZINE 25mg tab ORAL SCH (06:13)
[2018-11-03] MEDS: cloNIDine 0.2mg Tab ORAL SCH (06:14)
[2018-11-03] MEDS: Hydromorphone 0.5mg/0.5ml inj IVP PRN (06:23)
--- NOTE | 2018-11-03 07:30 | NUR ---
NURSE NOTES: Received report from SEE White. The patient is having breakfast on the bed without acute distress or shortness of breath. No active bleeding or oozing on right arm noted at this time. The patient's bed is on the lowest position, call light in reach, and fall precaution reinforced. Will continue plan of care.
[2018-11-03 08:00] VITALS: BP 129/65
--- NOTE | 2018-11-03 08:00 | NUR ---
HAND-OFF: Report given to SEE Ramos.
[2018-11-03] MEDS: Docusate 100mg cap ORAL SCH ×2 (08:48→12:49)
[2018-11-03] MEDS: Carvedilol 25mg Tab ORAL SCH (08:49)
[2018-11-03] MEDS: Ritonavir 100mg tab ORAL SCH (08:50)
[2018-11-03] MEDS: Dolutegravir Sodium 50mg tab ORAL SCH (08:51)
[2018-11-03] MEDS: Imdur 30mg tab ORAL SCH (08:53)
--- NOTE | 2018-11-03 11:00 | NUR ---
NURSE NOTES: Discharge planning was discussed with Dr. Jimenez and the patient. There is no s/s of oozing or active bleeding on right arm. Notified Dr. Jimenez regarding Hemoglobin of 8.2 and another episode of 6 beats of V-tach, 1 pause, and a-flutter. Per Dr. Jimenez, the patient is stable to be discharged. Will continue plan of care.
--- NOTE | 2018-11-03 11:48 | General Progress Note ---
Assessment/Plan Problem List: (1) ESRF (end stage renal failure) ICD Codes: N18.6 - End stage renal disease SNOMED: 45606541 (2) Hyperkalemia ICD Codes: E87.5 - Hyperkalemia SNOMED: 14738907 (3) HIV disease ICD Codes: B20 - Human immunodeficiency virus [HIV] disease SNOMED: 89962177 (4) Cardiomyopathy ICD Codes: I42.9 - Cardiomyopathy, unspecified SNOMED: 83167217 (5) Hypertensive kidney disease ICD Codes: I12.9 - Hypertensive chronic kidney disease with stage 1 through stage 4 chronic kidney disease, or unspecified chronic kidney disease SNOMED: 41266879 (6) Problem with dialysis access ICD Codes: T82.898A - Other specified complication of vascular prosthetic devices, implants and grafts, initial encounter SNOMED: 795148040 (7) Anemia in chronic kidney disease (CKD) ICD Codes: N18.9 - Chronic kidney disease, unspecified; D63.1 - Anemia in chronic kidney disease SNOMED: 240421537 Status: stable Assessment/Plan: stable for Dc wants to go home not e[facility] HD as OP tomorrow previously: up dose hydralazine hold ASA, oozing blood from right arm Dr Hudson checked and right arm under tight dressing transfuse one unit PRBCs HD next 11/01 Kayexelate as needed Keep bp in check EPO monitor BP and Renal parameters ? DC in 11/03 Subjective ROS Limited/Unobtainable: No Allergies: Coded Allergies: No Known Allergies (Unverified , 10/27/18) Objective Last 24 Hour Vital Signs Date Time Temp Pulse Resp B/P (MAP) Pulse Ox O2 Delivery O2 Flow Rate FiO2 11/03/18 09:00 Room Air 11/03/18 08:53 129/65 11/03/18 08:50 84 129/65 11/03/18 08:49 84 129/65 11/03/18 08:00 98.2 84 18 129/65 (86) 98 11/03/18 06:14 136/71 11/03/18 06:13 136/71 11/03/18 04:15 97.8 78 18 124/64 (84) 11/03/18 04:00 76 11/03/18 04:00 97.8 76 18 124/64 (84) 97 11/03/18 00:00 77 11/03/18 00:00 98.4 80 20 132/60 (84) 96 11/02/18 22:05 145/75 11/02/18 22:05 145/75 11/02/18 21:00 Room Air 11/02/18 20:43 85 131/68 11/02/18 20:00 84 11/02/18 20:00 99.4 85 18 131/68 (89) 98 11/02/18 17:49 83 140/79 11/02/18 17:40 18 140/79 (99) 11/02/18 16:00 83 11/02/18 16:00 98.5 83 20 139/70 (93) 97 11/02/18 14:20 80 18 127/72 (90) 11/02/18 14:00 127/72 11/02/18 14:00 127/72 11/02/18 12:00 97.5 86 20 147/79 (101) 99 11/02/18 11:52 85 Intake and Output 11/02/18 11/03/18 18:59 06:59 Intake Total 500 ml 260 ml Balance 500 ml 260 ml Intake Oral 500 ml 260 ml # Voids 2 # Bowel Movements 2 Current Medications Medications (Trade) Dose Ordered Sig/Rosa Route PRN Reason Start Time Stop Time Status Last Admin Dose Admin Acetaminophen (Tylenol) 500 mg Q4H PRN ORAL Mild Pain/Temp > 100.5 10/27/18 10:00 11/26/18 09:59 Carvedilol (Coreg) 25 mg EVERY 12 HOURS ORAL 10/27/18 21:00 11/26/18 20:59 11/03/18 08:49 Cinacalcet (Sensipar) 90 mg QHS ORAL 10/27/18 21:00 11/26/18 20:59 11/02/18 20:44 Clonidine HCl (Catapres tab) 0.2 mg Q8HR ORAL 10/27/18 14:00 11/26/18 13:59 11/03/18 06:14 Docusate Sodium (Colace) 100 mg TID ORAL 10/27/18 13:00 11/26/18 12:59 11/03/18 08:48 Dolutegravir Sodium (Tivicay) 50 mg DAILY ORAL 10/29/18 17:00 11/28/18 16:59 11/03/18 08:51 Emtricitabine (Emtriva) 200 mg TuFr@0900 ORAL 10/29/18 17:00 11/28/18 16:59 10/31/18 09:33 Epoetin Kian (Epoetin Kian(ESRD on dialysis)) 10,000 unit SUBQ 10/29/18 21:00 11/28/18 20:59 10/31/18 21:22 Folic Acid (Folate) 3 mg DAILY ORAL 10/28/18 09:00 11/27/18 08:59 11/03/18 08:49 Hydralazine HCl (Apresoline) 75 mg Q8HR ORAL 11/02/18 14:00 11/26/18 13:59 11/03/18 06:13 Hydromorphone HCl (Dilaudid) 0.5 mg Q3H PRN IVP pain 4-10 10/28/18 09:15 11/03/18 17:14 11/03/18 06:23 Isosorbide Mononitrate (Imdur) 60 mg DAILY ORAL 10/28/18 09:00 11/27/18 08:59 11/02/18 08:57 Minoxidil (Loniten) 2.5 mg Q4H PRN ORAL bp over 165 syst 10/27/18 12:00 11/26/18 11:59 Nifedipine (Procardia XL) 60 mg BID ORAL 10/28/18 09:00 11/27/18 08:59 11/03/18 08:50 Pantoprazole (Protonix) 40 mg EVERY 12 HOURS ORAL 10/27/18 21:00 11/26/18 20:59 11/03/18 08:50 Pravastatin Sodium (Pravachol) 10 mg BEDTIME ORAL 10/27/18 21:00 11/26/18 20:59 11/02/18 20:43 Ritonavir (Norvir) 100 mg DAILY ORAL 10/29/18 17:00 11/28/18 16:59 11/03/18 08:50 Sevelamer Carbonate (Renvela) 1,600 mg THREE TIMES A DAY ORAL 10/27/18 13:00 11/26/18 12:59 11/03/18 08:50 Height (Feet): 5 Height (Inches): 9.00 Weight (Pounds): 130 Cardiovascular: normal rate, other - occ irregular Respiratory/Chest: lungs clear Extremities: other - no further blood oozing from right arm Objective no change Raymond Jimenez MD November 03, 2018 11:48
--- NOTE | 2018-11-03 11:55 | Discharge Instructions ---
Discharge Instructions Discharge Instructions Follow up with: fu at dialysis unit out patient Special Instructions patients brother and sister in law are care takers- fu with Dr shi regarding right arm vascular surgery fu OP HD unit donnie Myrna Sat For Congestive Heart Failure Reminder Report to your physician any weight gain of 5 pounds or more in one week. Raymond Jimenez MD November 03, 2018 11:55
[2018-11-03 12:00] VITALS: BP 126/69
--- NOTE | 2018-11-03 13:16 | NUR ---
RD ASSESSMENT & RECOMMENDATIONS SEE CARE ACTIVITY FOR COMPLETE ASSESSMENT DAILY ESTIMATED NEEDS: Needs based on ESRD HD, HIV, UNDERWEIGHT/ 54kg 30-40kcal/kg kcals/kg 9909-8680 total kcals 1.2-1.8g g protein/kg 65-97 g total protein Fluid per MD, on HD NUTRITION DIAGNOSIS: (1) Increased KCAL and protein needs R/T ESRD, infection, underweight status, as evidenced by pt on HD, HIV+, @74% [place] Body Weight, BMI underweight per guidelines. (2) Altered nutrition related lab values R/T ESRD as evidenced by elev creat (8.3), elev K (7.0-> now wnl), elev BNP (79045). PO DIET RECOMMENDATIONS: RENAL + high prot snacks BID ----- ADDITIONAL RECOMMENDATIONS: * OBTAIN A CALIBRATED BED SCALE WT OR STANDING PREFERRED * High protein snacks in b/w meals * Nephrovite 1 tab daily as supplement * Weekly weights for eval * Nepro 1 tetra jefry daily upon pt request
--- NOTE | 2018-11-03 13:40 | NUR ---
NURSE NOTES: The patient was discharged in a safe manner with his daughter, Ulisses via private vehicle. The patient denies of acute distress or shortness of breath upon discharge. There is no signs and symptoms of oozing or active bleeding on right arm. The dressing on right arm is clean and intact. Dr. Jimenez was at the bedside around 1100 to discuss discharge plan with the patient at the bedside, and the patient agreed with the plan. The patient is discharged with home health order for right arm dressing change. Dr. Jimenez was notified about another episode of 6beats of v-tach, 1pause, and a-flutter. The patient's tele monitoring box, IV, and name band was removed. Belongings was checked with the patient at the bedside and signed by the patient. Discharge instruction given to the patient including home health order for dressing change and continuation of medication and care. The patient verbalized understanding and signed the form for discharge instruction. The patient was told to be back to near ER for similar signs and symptoms of bleeding or oozing.
--- NOTE | 2018-11-05 08:19 | Discharge Summary ---
Discharge Summary Discharge Summary _ DATE OF ADMISSION: 10/27/2018 DATE OF DISCHARGE: 11/03/2018 DISCHARGED BY: Dr. Jimenez REASON FOR ADMISSION: 73 years old male with past medical history of end-stage renal disease, on hemodialysis, HIV status, hypertension, hip surgery, had an elective procedure at [facility] on 10/27/2018 with placement of right upper arm basilic vein transposition arteriovenous fistula, exploration and dilatation of right upper arm basilic vein. During procedure patient was found to be hyperkalemic and hypertensive. Patient was admitted for urgent dialysis treatment and blood pressure management [facility] Patient admitted to telemetry floor. Urgent hemodialysis was requested. Patient had a prior ECHO recently, which revealed compromised ejection fraction of 45% with global left ventricular hypokinesis , moderate left ventricular hypertrophy, grade 2 diastolic dysfunction and right ventricular systolic pressure of 38 consistent with mild pulmonary hypertension . Moderate mitral regurgitation . Aortic stenosis . Blood pressure regimen was uptitrated to keep blood pressure under control. Patient was continued with hemodialysis with close monitoring of volumes, renal parameters and electrolytes. Hyperkalemia was treated. Anti-failure regimen with beta-chema, hydralazine, and long-acting nitrate provided. HAART therapy provided with patient current antiretroviral regimen. GI prophylaxis provided. Pain management was addressed. Bowel regimen instituted. Protein supplements implemented in plan of care as per registered client associate recommendation. Patient had continuous oozing from AV fistula. Aspirin was hold as mentioned above. Patient had anemia of chronic kidney disease and. Patient also had anemia due to acute blood loss secondary to continuous oozing from the right AV fistula. Aspirin was hold as mentioned above. Vascular surgeon checked the side, tight dressing applied. Patient received 1 unit of red blood cells while in the hospital. Patient started on Epogen. Hemoglobin and hematocrit were closely monitored with goal to keep hemoglobin above 7. Upon discharge hemoglobin 8.2, hematocrit 25. Patient preferred to go [facility] of [facility]. Blood pressure stabilized, stable electrolytes and hemoglobin. Patient was stable for discharge , follow-up with her outpatient hemodialysis as scheduled. FINAL DIAGNOSES: Problem with dialysis access Status post placement of right upper arm basilic vein transposition arteriovenous fistula, exploration and dilatation of right upper arm basilic vein End-stage renal disease, on hemodialysis Hyperkalemia Blood pressure out of control due to hypertensive urgency ( initially) Hypertensive heart disease HIV disease Cardiomyopathy with ejection fraction 4045% and global left ventricular hypokinesis Protein calorie malnutrition Anemia of chronic disease Anemia of acute blood loss requiring blood transfusion DISCHARGE MEDICATIONS: See Medication Reconciliation list. DISCHARGE INSTRUCTIONS: Patient was discharged home . Follow up with primary care provider in one week. Follow-up with outpatient hemodialysis services as scheduled. I have been assigned to dictate discharge summary for this account. I was not involved in the patient's management. Trinh Pitts NP November 05, 2018 08:19
== END 2018-11-03 13:40 | disposition home health service (06) | DRG 252 ==
LOC: SUR 05:35 → 2E 10:10
PROC: 05SB0ZZ Reposition Right Basilic Vein, Open Approach (ICD-10-PCS; principal; 2018-10-27 07:30)
PROC: 5A1D70Z Performance of Urinary Filtration, Intermittent, Less than 6 Hours Per Day (ICD-10-PCS; principal; 2018-10-27 07:30)
PROC: 03170ZD Bypass Right Brachial Artery to Upper Arm Vein, Open Approach (ICD-10-PCS; principal; 2018-10-27 07:30)
PROC: 30233N1 Transfusion of Nonautologous Red Blood Cells into Peripheral Vein, Percutaneous Approach (ICD-10-PCS; 2018-10-30)
DX: T82.41XA Breakdown (mechanical) of vascular dialysis catheter, initial encounter (principal); N18.6 End stage renal disease; E43 Unspecified severe protein-calorie malnutrition; I13.11 Hypertensive heart and chronic kidney disease without heart failure, with stage 5 chronic kidney disease, or end stage renal disease; B20 Human immunodeficiency virus [HIV] disease; Z68.1 Body mass index [BMI] 19.9 or less, adult; I42.9 Cardiomyopathy, unspecified; D62 Acute posthemorrhagic anemia; E87.5 Hyperkalemia; T82.838A Hemorrhage due to vascular prosthetic devices, implants and grafts, initial encounter; I16.0 Hypertensive urgency; D63.8 Anemia in other chronic diseases classified elsewhere; Z87.891 Personal history of nicotine dependence; J44.9 Chronic obstructive pulmonary disease, unspecified; Y84.1 Kidney dialysis as the cause of abnormal reaction of the patient, or of later complication, without mention of misadventure at the time of the procedure
CPT/HCPCS: 36415; 80048; 80053; 80061; 82533; 82607; 82728; 82746; 82977; 83036; 83540; 83550; 83735; 83880; 84100; 84132; 84443; 84484; 84550; 85025; 85610; 85730; 86140; 86850; 86900; 86901; 86920; 87081; 93005; 94003; 94150